=== PATIENT | female | born 1960 | race Caucasian/White ===

== ENCOUNTER → 2017-02-05 | Outpatient (CLI) | payer OTHER ==
[~2017-02-05] MED LIST: ADVIN25/60 INH; ALBUAER2 INH; ASPEC81 PO; FLUT0.15 NAE; LPR25 PO; LPT40 PO; PLV75 PO; ZNTT/150 PO
--- NOTE | 2017-02-08 17:36 | PULMONARY FUNCTION TEST ---
INTERPRETATION: The spirometry reveals moderate obstruction with no change in airflow with the use of albuterol.
== END | disposition home or self-care (01) ==
LOC: C.RC 12:26
PROVIDERS: ATTEND Nurse Practitioner Family
DX: J44.9 Chronic obstructive pulmonary disease, unspecified (principal)

== ENCOUNTER → 2017-02-16 | Outpatient (CLI) | payer OTHER ==
[~2017-02-16] MED LIST changes: +GADAVIST IV PRN
--- NOTE | 2017-02-16 09:18 | DIAGNOSTIC IMAGING REPORT ---
Brain MRI WITH AND WITHOUT CONTRAST HISTORY: Prior infarcts. Headaches. TECHNIQUE: Multiplanar multisequence MRI of the brain was performed both before and after the intravenous administration of contrast. COMPARISON STUDY: Brain MRI 01/16/2016. FINDINGS: No areas of restricted diffusion to suggest acute infarction. The midline structures are intact. Moderate mucosal thickening within the right T9 sinus and mild mucosal thickening within the remaining paranasal sinuses. The mastoid air cells are clear. The major vascular flow-voids at the skull base are maintained. Old right MCA territory infarct is again noted. There is surrounding T2 signal abnormality, unchanged. This favors scoliosis. Patchy white matter T2 hyperintensity also remains unchanged. This is nonspecific but favors microvascular ischemic change. There is no mass, hematoma, midline shift. The post infarct enhancement seen on the prior study has almost completely resolved in the interval. IMPRESSION: 1. No acute intracranial abnormality. 2. Old right MCA territory infarct. The enhancement associated with the infarct has almost completely resolved in the interval. Electronically signed by: Reynold Baron M.D. 02/16/2017 9:15 AM Dictated Date/Time: 02/16/2017 9:10 AM
== END | disposition home or self-care (01) ==
LOC: C.OPENMRI 07:40
PROVIDERS: ATTEND Psychiatry & Neurology Neurology
DX: Z86.73 Personal history of transient ischemic attack (TIA), and cerebral infarction without residual deficits (principal)

== ENCOUNTER → 2017-02-25 | Outpatient (CLI) | payer OTHER ==
[~2017-02-25] MED LIST changes: -GADAVIST IV PRN
--- NOTE | 2017-02-25 17:19 | MOTOR CONDUCTION ---
CLINICAL DIAGNOSIS: Cerebrovascular accident October 2015 now with memory loss, headaches, question partial seizure activity. EEG DIAGNOSIS: Essentially normal during wakefulness. DESCRIPTION OF TRACING: This EEG was done in laboratory and is of good technical quality with few or no muscle or movement artifacts. Simultaneous analysis of patient movement and behavior was obtained. Photic stimulation was performed. Hyperventilation was not. Drowsiness and light sleep are not clearly recorded. Under these conditions, there is evidence for normal appearing background rhythm in the alpha range of up to 10 Hz of maximum frequency and 30 microvolts of maximum amplitude. This is maximum in posterior head regions and bilaterally symmetrical. Polymorphic mid frequency theta activity is seen over all head regions without clear focal or regional predominance. Anterior head region maximum bilaterally symmetrical low voltage fast activity in the beta range is present. Photic stimulation provokes some modest driving response without a photomyogenic or photoparoxysmal component. At no time during the waking tracing is there evidence for potentially epileptogenic activity in the form of polyspike or spike wave bursts, focal sharp waves or focal spikes. INTERPRETATION: This EEG is essentially normal during wakefulness without evidence for focal or generalized encephalopathy and without evidence for potentially epileptogenic activity. MTDD
== END | disposition home or self-care (01) ==
LOC: C.NEUR 09:30
PROVIDERS: ATTEND Psychiatry & Neurology Neurology
DX: I69.311 Memory deficit following cerebral infarction (principal); R51 Headache

== ENCOUNTER → 2017-03-09 | Outpatient (CLI) | payer OTHER ==
--- NOTE | 2017-03-09 09:51 | DIAGNOSTIC IMAGING REPORT ---
CHEST 2 VIEWS ROUTINE CLINICAL HISTORY: Cough with bloody sputum. COMPARISON STUDY: Chest radiograph October 09, 2015. FINDINGS: Low volumes are normal. There is no consolidation. No pneumothorax or pleural effusion is identified. Cardiac size is normal. Mediastinal contours are normal. Minimal linear left lower lung opacity favors atelectasis or scarring. IMPRESSION: No acute cardiopulmonary findings. Electronically signed by: Eduardo Pollard M.D. 03/09/2017 9:50 AM Dictated Date/Time: 03/09/2017 9:50 AM
== END | disposition home or self-care (01) ==
LOC: C.RAD 09:35
PROVIDERS: ATTEND Nurse Practitioner Family
DX: R05 Cough (principal)

== ENCOUNTER → 2017-06-23 | Outpatient (CLI) | payer OTHER ==
--- NOTE | 2017-06-25 10:54 | PULMONARY FUNCTION TEST ---
Spirometry is suggestive for a mild obstructive pattern. Repeat study done following bronchodilators showed mild but not definitively significant improvement in function. FEV1 improved to 11%. Flow volume loops were consistent with spirometric findings. Lung volumes showed a normal total lung capacity. RV and FRC were mildly decreased. This would not correlate well with spirometric findings. Advise clinical correlation. Typically, spirometry is a better indicator of function. Diffusion capacity is 74% which is at the lower limits of normal.
== END | disposition home or self-care (01) ==
LOC: C.RC 10:38
PROVIDERS: ATTEND Internal Medicine Pulmonary Disease
DX: J44.9 Chronic obstructive pulmonary disease, unspecified (principal)

== ENCOUNTER → 2017-06-23 | Outpatient (CLI) | payer OTHER ==
--- NOTE | 2017-06-23 12:45 | DIAGNOSTIC IMAGING REPORT ---
TWO VIEW CHEST CLINICAL HISTORY: COPD. Cough. FINDINGS: PA and lateral chest radiographs are compared to study dated 03/09/2017. The cardiomediastinal silhouette is unremarkable. Calcified mediastinal nodes are suggested on the lateral view. Emphysema and chronic interstitial thickening are similar to previous. No airspace consolidation or pleural effusion is identified. There is no pneumothorax. The bony thorax appears intact. IMPRESSION: Emphysematous change with no acute cardiopulmonary abnormality. Electronically signed by: Jl Romero M.D. 06/23/2017 12:44 PM Dictated Date/Time: 06/23/2017 12:42 PM
== END | disposition home or self-care (01) ==
LOC: C.RAD 10:42
PROVIDERS: ATTEND Family Medicine
DX: J44.9 Chronic obstructive pulmonary disease, unspecified (principal)

== ENCOUNTER → 2017-07-14 | Outpatient (CLI) | payer OTHER ==
[2017-07-15 11:22] LABS: ALTERNARIA CLASS 0; ALTERNARIA IGE <0.10 KU/L; ASH (WHITE) CLASS 0; ASH (WHITE) IGE <0.10 KU/L; ASPERG FUMIG CLASS 0; ASPERG FUMIG IGE <0.10 KU/L; BIRCH CLASS 0; CAT DANDER CLASS 0; CLADOSPORIUM HER CLASS 0; CLADOSPORIUM HER IGE <0.10 KU/L; D. FARINAE CLASS 0; D. FARINAE IGE <0.10 KU/L; D. PTERONYSSINUS CLASS 0; D. PTERONYSSINUS IGE <0.10 KU/L; DOG DANDER CLASS 0; ELM CLASS 0; ENGLISH PLAN CLASS 0; ENGLISH PLAN IGE <0.10 KU/L; GIANT RAGWEED CLASS 0; GIANT RAGWEED IGE <0.10 KU/L; HOUSE DUST HOLLISTER-STIER C 0; HOUSEDUST HOLLIST-STIER IGE <0.10 KU/L; IMMUNOGLOBULIN E TC 24620E <2 KU/L (<115); JUNE (KENTUCKY BLUE) CLASS 0; JUNE IGE <0.10 KU/L; LAMB'S QUARTER CLASS 0; LAMB'S QUARTER IGE <0.10 KU/L; MAPLE (BOX ELDER) IGE <0.10 KU/L; MAPLE CLASS 0; OAK- WHITE CLASS 0; OAK- WHITE IGE <0.10 KU/L; ORCHARD GRASS CLASS 0; ORCHARD GRASS IGE <0.10 KU/L; PENIC NOTATUM CLASS 0; PENIC NOTATUM IGE <0.10 KU/L; RUSSIAN THISTLE CLASS 0; RUSSIAN THISTLE IGE <0.10 KU/L; SHORT RAGWEED CLASS 0; SHORT RAGWEED IGE <0.10 KU/L; TIMOTHY CLASS 0; TIMOTHY IGE <0.10 KU/L
== END | disposition home or self-care (01) ==
LOC: C.LAB 10:04
PROVIDERS: ATTEND Internal Medicine Pulmonary Disease
DX: J44.1 Chronic obstructive pulmonary disease with (acute) exacerbation (principal)

== ENCOUNTER → 2017-08-04 | Outpatient (CLI) | payer OTHER ==
--- NOTE | 2017-08-05 10:28 | POLYSOMNOGRAPH REPORT ---
CLINICAL DATA: A 57-year-old female with height of 62 inches and weight of 186 pounds, referred by Dr. Durham for evaluation of COPD. Spirometry pre- and post-bronchodilator, lung volumes, and DLCO were performed. FINDINGS: Pre-bronchodilator demonstrates mild obstructive airways disease. FVC was 92% of predicted. FEV1 was 69% of predicted. [id number] was 27% of predicted. There was slight improvement after inhaled bronchodilator. FVC improved 2% to 94% of predicted. FEV1 improved 8% to 74% of predicted. GJH36-05 improved 17% to 32% of predicted. Lung volumes did not show evidence of air trapping. Residual volume was 100% of predicted. ERV was reduced to 26% of predicted secondary to obesity. DLCO was normal at 82% of predicted. IMPRESSION: Mild obstructive airways disease with slight improvement after inhaled bronchodilator. No evidence of air trapping. Reduction in expiratory reserve volume due to obesity. Normal DLCO. This is consistent with the clinical impression of mild chronic obstructive pulmonary disease. MTDD
== END | disposition home or self-care (01) ==
LOC: C.RC 10:43
PROVIDERS: ATTEND Internal Medicine Pulmonary Disease
DX: J44.9 Chronic obstructive pulmonary disease, unspecified (principal)

== ENCOUNTER → 2017-10-20 | Outpatient (CLI) | payer OTHER ==
--- NOTE | 2017-10-20 16:23 | DIAGNOSTIC IMAGING REPORT ---
L HIP UNILATERAL 2 VIEWS HISTORY: 57 years-old Female PAIN IN LEFT HIP acute left sided hip pain COMPARISON: None available TECHNIQUE: 3 views of the left hip FINDINGS: No acute fracture, dislocation or significant degenerative changes of the left hip. Intervertebral disc space narrowing with facet arthropathy noted involving the lower lumbar spine. Probable phleboliths of the left hemipelvis. Soft tissues are within normal limits. Indeterminate 10 mm lucent lesion of the proximal diaphyseal left femur is imaged on the frog-leg view only. This appears to demonstrate a thin zone of transition. IMPRESSION: 1. No acute fracture, dislocation or significant degenerative changes. 2. 10 mm lucent lesion of the proximal diaphyseal left femur imaged on the frog leg view only is indeterminate. This could be further evaluated with dedicated left femur radiographs. The above report was generated using voice recognition software. It may contain grammatical, syntax or spelling errors. Electronically signed by: Wero Adkins M.D. 10/20/2017 4:22 PM Dictated Date/Time: 10/20/2017 4:17 PM
== END | disposition home or self-care (01) ==
LOC: C.RAD 15:41
PROVIDERS: ATTEND Family Medicine
DX: M25.552 Pain in left hip (principal); M89.9 Disorder of bone, unspecified

== ENCOUNTER → 2017-10-21 | Outpatient (CLI) | payer OTHER ==
[~2017-10-21] MED LIST changes: -ASPEC81 PO; +ASPI-320 PO; +RANI150T85 PO; -ZNTT/150 PO
--- NOTE | 2017-10-21 16:21 | DIAGNOSTIC IMAGING REPORT ---
L FEMUR 2 VIEWS ROUTINE HISTORY: 57 years-old Female ABNORMAL FINDINGS ON DIAGNOSTIC IMAGING OF LIMBS follow-up study to assess lucent lesion of the proximal left femur seen on comparison radiographs COMPARISON: Left hip radiographs 10/20/2017 TECHNIQUE: 2 views of the left femur FINDINGS: There is a 11 x 9 x 8 mm lucent lesion involving the proximal to mid diaphyseal left femur correlating with finding seen on comparison radiographs. This appears to demonstrate a thin zone of transition however the margins appear somewhat lobulated. No evidence of associated cortical destruction, definite endosteal scalloping or pathologic fracture. No soft tissue mass identified. No significant degenerative changes identified. IMPRESSION: Indeterminate 11 mm lucent lesion of the proximal to mid diaphyseal left femur without evidence of associated cortical destruction, endosteal scalloping, soft tissue mass or pathologic fracture. Based on the small size of this lesion, a CT or MRI would likely not be of significant diagnostic benefit. Three-month follow-up radiographs recommended to exclude progressive abnormality. The above report was generated using voice recognition software. It may contain grammatical, syntax or spelling errors. Electronically signed by: Wero Adkins M.D. 10/21/2017 4:20 PM Dictated Date/Time: 10/21/2017 3:39 PM
== END | disposition home or self-care (01) ==
LOC: C.RAD 15:06
PROVIDERS: ATTEND Nurse Practitioner Family
DX: R93.6 Abnormal findings on diagnostic imaging of limbs (principal); M89.9 Disorder of bone, unspecified

== ENCOUNTER → 2018-01-26 | Outpatient (CLI) | payer OTHER ==
[~2018-01-26] MED LIST changes: +ASPEC81 PO; -ASPI-320 PO
--- NOTE | 2018-01-26 14:27 | PULMONARY FUNCTION TEST ---
Spirometry is consistent with a moderate obstructive pattern. Flow volume loops were consistent with spirometric findings.
== END | disposition home or self-care (01) ==
LOC: C.RC 09:58
PROVIDERS: ATTEND Internal Medicine Pulmonary Disease
DX: J44.9 Chronic obstructive pulmonary disease, unspecified (principal)

== ENCOUNTER 2024-04-07 16:47 | Inpatient (IN) ==
--- NOTE | 2024-04-07 16:53 | ED Triage Note ---
Date of Service April 07, 2024 Provider in Triage Author: Keya Banuelos History of Present Illness This patient was briefly evaluated while in triage. An abbreviated physical exam was performed. This patient is a 64-year-old Female who presents to the ED for evaluation Hx of COPD, CVA coming from [facility] with SOB, productive cough, headache, weakness, increased heart rate for about a month after running out of albuterol Physical Exam GENERAL: NAD, tachy in 100s, sat 92% CARDIOVASCULAR: RRR RESPIRATORY: BS diminished throughout, scattered wheezes ABDOMEN: BS x 4. Nontender to palpation. Initial orders for labs and / or imaging were placed and patient was placed in the waiting area until a bed is available. Please see further documentation for the full ED course.
[2024-04-07] MEDS ORDERED: methylPREDNISolone 125 MG in SYRINGE 0 ML IV ONE (17:08)
[2024-04-07] MEDS: ALBUT/IPRATROP 3MG/0.5MG NEB 3 ML VIAL NEB STA ×3 (17:14→18:49)
[2024-04-07 17:16] LABS: HCO3 VBG 27 mmol/L; Oxygen Saturation VBG 96.2 %; PCO2 VBG 44 mmHg (38-50); PO2 VBG 79 mmHg
[2024-04-07 17:24] LABS: Basophils # (auto) 0.05 K/uL (0.00-0.20); Basophils % (auto) 0.4 %; Eosinophils # (auto) 0.44 K/uL (0.00-0.50); Eosinophils % (auto) 3.9 %; Hematocrit (blood only) 45.8 % (37.0-47.0); Hemoglobin 14.8 g/dl (12.0-16.0); Immature Granulocytes # (auto) 0.05 K/uL (0.01-0.20); Immature Granulocytes % (auto) 0.4 %; Lymphocytes # (auto) 2.76 K/uL (1.20-3.40); Lymphocytes % (auto) 24.5 %; Mean Corpuscular Hemoglobin 31.6 pg (25.0-34.0); Mean Corpuscular Hgb Conc 32.3 g/dL (32.0-36.0); Mean Corpuscular Volume 97.9 fL (80.0-100.0); Monocytes # (auto) 0.89 K/uL (0.11-0.59); Monocytes % (auto) 7.9 %; Neutrophils # (auto) 7.09 K/uL (1.40-6.50); Neutrophils % (auto) 62.9 %; Platelet Count 221 K/uL (130-400); RDW Coefficient of Variation 12.7 % (11.5-14.5); RDW Standard Deviation 45.3 fL (36.4-46.3); Red Blood Count 4.68 M/uL (4.20-5.40); White Blood Count 11.28 K/ul (4.8-10.8)
[2024-04-07 17:38] LABS: Albumin Globulin Ratio 1.3 (0.9-2); Albumin Level 4.1 gm/dl (3.4-5.0); BUN Creatinine Ratio 18.8 (10-20); Bilirubin,Total 0.5 mg/dl (0.2-1.0); Calcium 9.7 mg/dl (8.6-10.3); Creatinine Clr Calc Pharmacy 55.5 ml/min; Est GFR (African American) 90.3 ml/min; Est GFR (Non-African American) 77.9 ml/min; Globulin 3.2 gm/dl (2.5-4.0); Potassium 4.4 mmol/L (3.5-5.1); Total Protein 7.3 gm/dl (6.0-8.3)
[2024-04-07 17:44] LABS: Troponin I High Sensitivity 6.6 pg/ml (0-14)
[2024-04-07 17:51] LABS: Partial Thromboplastin Ratio 1.1; Partial Thromboplastin Time 30 Seconds (21-31); Prothrombin Time 10.5 Seconds (9.0-12.0)
--- NOTE | 2024-04-07 17:56 | XRay Report ---
SINGLE VIEW CHEST CLINICAL HISTORY: Dyspnea FINDINGS: An AP, portable, upright chest radiograph is compared to study dated 03/09/2017. Calcificatio ns are noted in the right chest wall. The cardiomediastinal silhouette is unremarkable. Dependent air space opacities likely represent atelectasis. No large pleural effusion or pneumothorax is seen. The skeletal structures are osteopenic. The bony thorax is grossly intact. IMPRESSION: Dependent airspace opacities likely represent atelectasis. Correlate clinically. ACT 112: Negative or not required by law. Electronically signed by: Jl Romero M.D. 04/07/2024 5:55 PM
[2024-04-07 18:01] LABS: Influenza A virus by PCR Negative (Neg); Influenza B virus by PCR Negative (Neg); RSV by PCR Negative (Neg); SARS CoV2 RNA(COVID-19) Ceph NEGATIVE (Negative)
[2024-04-07] MEDS: methylPREDNISolone 125 MG in SYRINGE 0 ML IV STA (18:10)
--- NOTE | 2024-04-07 18:37 | History & Physical Report ---
Date of Service April 07, 2024 Assessment & Plan (1) COPD exacerbation: (2) Acute hypoxic respiratory failure: (3) HTN (hypertension): (4) Hx of ischemic right MCA stroke: (5) Tobacco abuse: Plan This is a 64 year old F who has a significant PMH of COPD, HLD, Hypertriglycerid emia, Vit d def, hx of migraine, anxiety, depression, hx of R MCA CVA who presents to ED 2/2 worsening SOB and referral from [facility]. Please refer to Dr. Choi addendum for details regarding assessment and plan. DVT ppx: SQ Lovenox FULL CODE PCP: [facility] Dispo: admit to tele, pt is without insurance, she has gone without medications for quite some time, will need to develop a plan at discharge for pt to be able to obtain some of these, maci in regards to COPD Pt was seen and examined in collaboration with Dr. Choi, please see addendum A total of 40 min was spent coordinating, documenting, and providing care for this patient excluding time spent in the performance of separately billed services. This included personally viewing all current laboratories and imaging studies, medication reconciliation, outpatient chart review, and discussion with specialists. History of Present Illness Chief Complaint: Referred by [facility] due to SOB. Primary Care Provider: NO PCP [facility] This is a 64 year old F who has a significant PMH of COPD, HLD, Hypertriglyceridemia, Vit d def, hx of migraine, anxiety, depression, hx of R MCA CVA who presents to ED 2/2 worsening SOB and referral from [facility]. She does not have insurance. She recently ran out of her albuterol. A good friend/neighbor is at bedside who also encouraged her to come to ED. She complains of increasing SOB for, "months." Her sob has been getting worse. She feels tight in the chest. She has been using as needed albuterol. She also reports, "a sinus infection," for a long time. She was prescribed Augmentin in the past and this did not work. She still feels she is infected. She used flonase in the past that seemed to help. She has a productive cough, post nasal drip that is worse in the morning, She does still actively smoke. She declines a nicotine patch. She has not been taking any medications for some time. She has only been using albuterol and prn ibuprofen 600mg for, "aches and pains." She drinks a lot of water. She tends to run on the constipated side. In ED pt was hypoxic requiring supplmental oxygen. She received multiple nebulizer treatments and solumedrol IV 125mg. She feels much improved from when she first came in. Allergies Allergy/AdvReac Type Severity Reaction Status Date / Time latex Allergy Mild Verified 04/07/24 18:57 [id number] Reductase AdvReac Mild Verified 04/07/24 18:57 Inhibitor Home Medications Medication Instructions Recorded Confirmed Type No Known Home Medications 04/07/24 04/07/24 History Past Med/Surg History Problem List (Updated 04/07/24 @ 19:00 by Verito Brody PA-C) HTN (hypertension) Acute hypoxic respiratory failure COPD exacerbation COPD with hypoxia (Acute) Medical History (Updated 04/07/24 @ 19:00 by Verito Brody PA-C) Tobacco abuse Hx of ischemic right MCA stroke Dyslipidemia COPD (chronic obstructive pulmonary disease) Surgical History S/P endometrial ablation H/O tubal ligation History of dental surgery Family History Other Diabetes Hypertension Social History Smoking Status: Current every day smoker packs per day: 1; Hx Alcohol Use: Yes Alcohol Intake Frequency: Monthly or Less Hx Substance Use: No Preferred Language: Thai marital status: Single Current Living Situation: Alone Feels Safe at Home: Yes Review of Systems Review of Systems: All systems reviewed & are unremarkable except as noted in HPI & below Physical Exam Physical Exam: please refer to Dr. Choi addendum for physical exam findings. Results & Data Results & Data Vital Signs (Past 12 Hours) Vital Signs Temp Pulse Resp BP Pulse Ox O2 Del Method O2 Flow Rate 04/07/24 17:30 95 H 17 95 Nasal Cannula 2 04/07/24 17:21 90 12 96 04/07/24 17:19 97 H 04/07/24 17:08 Nasal Cannula 04/07/24 16:50 37.0 C 107 H 22 161/97 H 92 Room Air Diagnostic Findings Chest X-Ray 04/07/24 16:53 SINGLE VIEW CHEST CLINICAL HISTORY: Dyspnea FINDINGS: An AP, portable, upright chest radiograph is compared to study dated 03/09/2017. Calcifications are noted in the right chest wall. The cardiomediastinal silhouette is unremarkable. Dependent airspace opacities likely represent atelectasis. No large pleural effusion or pneumothorax is seen. The skeletal structures are osteopenic. The bony thorax is grossly intact. IMPRESSION: Dependent airspace opacities likely represent atelectasis. Correlate clinically. ACT 112: Negative or not required by law. Electronically signed by: Jl Romero M.D. 04/07/2024 5:55 PM Medications Administered Medication List Discontinued Medications Albuterol (Albut/Ipratrop 3mg/0.5mg Neb 3 Ml Vial) 3 ml NEB NOW STA; Protocol Stop: 04/07/24 17:08 Last Admin: 04/07/24 17:14 Dose: 3 ml Documented By: NADYA Albuterol (Albut/Ipratrop 3mg/0.5mg Neb 3 Ml Vial) 3 ml NEB NOW STA; Protocol Stop: 04/07/24 17:09 Last Admin: 04/07/24 17:14 Dose: 3 ml Documented By: NADYA Methylprednisolone 125 mg/ (Syringe) 2 mls @ 0.667 mls/min IV ONE STA Stop: 04/07/24 17:52 Last Admin: 04/07/24 18:10 Dose: 0.667 mls/min Documented By: NADYA ECG Additional Comments: I have independently reviewed and interpreted patient's admitting EKG which revealed: NSR, normal QTC, no st t wave changes Code Status & VTE Plan Code Status FULL CODE VTE Prophylaxis Plan VTE Prophylaxis will be ordered: Yes Supervising Physician Co-Signing Physician Notes I have seen and discussed the case with the collaborating advanced practitioner. I agree with the above H&P. I have reviewed and confirmed the patients medical history, the findings on physical examination, and the patients diagnosis and treatment plan with Mary Grace HERNANDEZ and agree with the information documented. In short, Ms. Jon is a 64 year old woman with history of tobacco use, prior right MCA stroke in 2015 with no residual deficits, COPD, HLD, allergic rhinitis who is noncompliant with medications 2/2 to loss of insurance admitted for acute hypoxic respiratory failure 2/2 COPD exacerbation. Patient states she noted worsening of her wheezing over a month ago, but was able to find an old albuterol inhaler to help her get by symptom mejia, however, her breathing and ability to perform day to day activities continued to decline. She reports increased sputum, wheezing and cough. Denies fevers, chills. Not clear of exacerbating factors such as weather, but reports previously feeling much improved when on flonase. Reports still smoking 1-2 ppd despite respiratory issues. Denies hospitalization for COPD exacerbation previously but has recieved steroids prior for breathing difficulties. Reports subjective improvement with IV steroids. GENERAL APPEARANCE: AxOx4, initially apprehensive, but communicative and pleasant no acute distress. HEENT: NC, AT. MMM. EOMI, clear conjunctiva, oropharynx clear. NECK: Supple without lymphadenopathy. No stiffness or restricted ROM. HEART: tachycardic no m/r/g LUNGS: scatter expiratory wheezing R>L, NC 2L , no accessory muscle use no conversational dyspnea ABDOMEN: Soft, nontender, nondistended with good bowel sounds heard. BACK: No CVAT, no obvious deformity. EXTREMITIES: Without cyanosis, clubbing or edema. NEUROLOGICAL: Grossly nonfocal. Alert and oriented, moving all 4 extremities. CN not formally tested but appear grossly intact Skin: Warm and dry without any rash. #Acute hypoxic respiratory failure 2/2 COPD #Acute COPD exacerbation previously on Breo and Spiriva, albuterol prn Continue CTX and Azithromycin 500mg x 3 days Start IV methylpred 40 budesonide and formoterol nebs BID duonebs qid flutter valve and mucinex Wean O2 as tolerated Determine access to inhalers (Lama/Laba/Ics) given lack of insurance coverage #Allergic rhinitis Start flonase and claritin #Hypertension Previously on verapamil Amlodipine 5mg started, on [facility] 4$ medication list #tobacco use 1-2 ppd, declines nicotine patch declines counseling #History of right MCA -reportedly 2014, unable to tolerate statins, Previously on plavix start asa daily, encourage continuation upon dc dvt lovenox Patient follows [facility], discuss with CM either coverage options or medication solutions (inhalers) upon d/c I spent a total of 35 minutes coordinating, documenting, and providing care for this patient excluding time spent in the performance of separately billed services. All of the aforementioned completed outside of collaborating with the assigned advanced practitioner for a full treatment plan. I have reviewed the advanced practitioner's documentation, and I agree with, and take responsibility for the plan of care
[2024-04-07] MEDS: cefTRIAXone SODIUM 2,000 MG/50 ML BAG IV ONE (18:49)
--- NOTE | 2024-04-07 18:54 | Emergency Department Note ---
History of Present Illness General Chief Complaint: Shortness of Breath/Dyspnea Stated Complaint: SOB, DOC REF Time Seen by Provider: 04/07/24 17:00 History of Present Illness Provider Complaint: shortness of breath Onset (ago): month(s) (1) Consistency/Duration: + progressively worsening Maximum Pain Intensity: 5 Relieved By: + nothing Exacerbated By: + exertion Known history of: COPD Associated symptoms: + cough, + wheezing, + sputum production and + chest congestion; no fever, no hemoptysis, no nausea/vomiting, no abdominal pain or no rash HPI Narrative: Noncompliant with medications Related Data Home oxygen amount: none Home Medications Medication Instructions Recorded Confirmed Type No Known Home Medications 04/07/24 04/07/24 History Allergies Allergy/AdvReac Type Severity Reaction Status Date / Time No Known Allergies Allergy Unverified 04/07/24 18:13 Past Med/Surg History Problem List (Updated 04/07/24 @ 18:54 by Eagle Myrick MD) COPD with hypoxia (Acute) Medical History Dyslipidemia COPD (chronic obstructive pulmonary disease) Surgical History S/P endometrial ablation H/O tubal ligation History of dental surgery Social History Smoking Status: Current every day smoker packs per day: 1; Hx Alcohol Use: Yes Alcohol Intake Frequency: Monthly or Less Hx Substance Use: No Preferred Language: Latvian marital status: Single Current Living Situation: Alone Feels Safe at Home: Yes Physical Exam 2 Vital Signs: Vital Signs - 24 hr 04/07/24 16:47 04/07/24 16:50 04/07/24 17:08 Temperature 37.0 C Temperature Source Temporal Artery Sc an Pulse Rate 107 H Pulse Rate from Sp O2 Sensor Respiratory Rate 22 Respiratory Effort / Characteristics Labored Non-Labored Sponta neous Respiratory Depth Deep Normal Respiratory Patter n Tachypnea Regular Blood Pressure 161/97 H Blood Pressure Rachel n 118 Blood Pressure Pos ition Sitting Pulse Oximetry 92 Oxygen Delivery Me thod Room Air Nasal Cannula Oxygen Flow Rate Sepsis Recent Feve r Within 48 Hours No Sepsis New/Unexpla ined Change in Men mona Status N/A Sepsis Action Take n by Nursing Physician Notified 04/07/24 17:19 04/07/24 17:21 04/07/24 17:30 Temperature Temperature Source Pulse Rate 97 H 90 95 H Pulse Rate from Sp O2 Sensor 92 H 93 H Respiratory Rate 12 17 Respiratory Effort / Characteristics Respiratory Depth Respiratory Patter n Blood Pressure Blood Pressure Rachel n Blood Pressure Pos ition Pulse Oximetry 96 95 Oxygen Delivery Me thod Nasal Cannula Oxygen Flow Rate 2 Sepsis Recent Feve r Within 48 Hours Sepsis New/Unexpla ined Change in Men mona Status Sepsis Action Take n by Nursing Physical Exam: Physical Exam GENERAL: Barrel chested. HENT: Exam performed. - Head: Normocephalic and atraumatic. EYES: Conjunctivae and EOM are normal. Right eye exhibits no discharge. Left eye exhibits no discharge. No scleral icterus. NECK: Normal range of motion. Neck supple. No JVD present. CV: Normal rate, regular rhythm, normal heart sounds and intact distal pulses. There is no peripheral edema. Palpable radial pulses bue. PULM/CHEST: Diminished breath sounds bilaterally. Expiratory wheezes bilaterally. ABD: The abdomen is soft. There is no tenderness. NEURO: Motor and sensation grossly intact. SKIN: Skin is warm and dry. He is not diaphoretic. PSYCH: normal mood and affect. Behavior is normal. Judgment and thought content normal. Course Course 1700: The patient was evaluated in room C6. A complete history and physical exam was performed Cardiac monitoring: An order was placed for continuous cardiac monitoring. The monitor shows a rate of 100 with sinus rhythm interpreted by me Patient found to be hypoxic on room air. Supplemental oxygen was applied via nasal cannula to improve the patient oxygen saturation. DuoNebs and steroids ordered for the patient. 1820: Vital signs stable on supplemental oxygen. When the patient attempted to get up and use the restroom she came dyspneic and her oxygen saturations started decreasing again. Better air movement status post 2 DuoNebs. Will repeat DuoNeb's and admit the patient for COPD exacerbation. Labs and imaging within normal limits. Administered Medications Discontinued Medications Albuterol (Albut/Ipratrop 3mg/0.5mg Neb 3 Ml Vial) 3 ml NEB NOW STA; Protocol Stop: 04/07/24 17:08 Last Admin: 04/07/24 17:14 Dose: 3 ml Documented By: NADYA Albuterol (Albut/Ipratrop 3mg/0.5mg Neb 3 Ml Vial) 3 ml NEB NOW STA; Protocol Stop: 04/07/24 17:09 Last Admin: 04/07/24 17:14 Dose: 3 ml Documented By: NADYA Methylprednisolone 125 mg/ (Syringe) 2 mls @ 0.667 mls/min IV ONE STA Stop: 04/07/24 17:52 Last Admin: 04/07/24 18:10 Dose: 0.667 mls/min Documented By: NADYA Medical Decision Making Laboratory Data Attestation: I reviewed the patient's lab results. 04/07/24 17:04 04/07/24 17:04 Lab Results 04/07/24 04/07/24 Range/Units 17:04 17:11 WBC 11.28 H (4.8-10.8) K/ul RBC 4.68 (4.20-5.40) M/uL Hgb 14.8 (12.0-16.0) g/dl Hct 45.8 (37.0-47.0) % MCV 97.9 (80.0-100.0) fL MCH 31.6 (25.0-34.0) pg MCHC 32.3 (32.0-36.0) g/dL RDW Std Deviation 45.3 (36.4-46.3) fL RDW Coeff of [place] 12.7 (11.5-14.5) % Plt Count 221 (130-400) K/uL MPV 9.0 L (9.4-12.4) fL Immature Gran % (Auto) 0.4 % Neut % (Auto) 62.9 % Lymph % (Auto) 24.5 % [place] % (Auto) 7.9 % Eos % (Auto) 3.9 % Baso % (Auto) 0.4 % Neut # (Auto) 7.09 H (1.40-6.50) K/uL Lymph # (Auto) 2.76 (1.20-3.40) K/uL [place] # (Auto) 0.89 H (0.11-0.59) K/uL Eos # (Auto) 0.44 (0.00-0.50) K/uL Baso # (Auto) 0.05 (0.00-0.20) K/uL Immature Gran # (Auto) 0.05 (0.01-0.20) K/uL PT 10.5 (9.0-12.0) Seconds INR 1.0 (0.9-1.1) APTT 30 (21-31) Seconds PTT Ratio 1.1 VBG pH 7.40 (7.36-7.41) VBG pCO2 44 (38-50) mmHg VBG pO2 79 mmHg VBG HCO3 27 mmol/L VBG O2 Saturation 96.2 % VBG Base Excess 2.0 mEq/L Sodium 138 (136-145) mmol/L Potassium 4.4 (3.5-5.1) mmol/L Chloride 104 (98-107) mmol/L Carbon Dioxide 28 (21-32) mmol/L Anion Gap 6 (3-11) BUN 15 (6-23) mg/dl Creatinine 0.80 (0.6-1.2) mg/dl Est Cr Clr Drug Dosing 55.5 ml/min Est GFR ( Amer) 90.3 ml/min Est GFR (Non-Af Amer) 77.9 ml/min BUN/Creatinine Ratio 18.8 (10-20) Glucose 100 H (70-99(Fasting)) mg/dl Calcium 9.7 (8.6-10.3) mg/dl Total Bilirubin 0.5 (0.2-1.0) mg/dl AST 15 (13-39) U/L ALT 12 (7-52) U/L Alkaline Phosphatase 105 H (34-104) U/L Troponin I High Sens 6.6 (0-14) pg/ml Total Protein 7.3 (6.0-8.3) gm/dl Albumin 4.1 (3.4-5.0) gm/dl Globulin 3.2 (2.5-4.0) gm/dl Albumin/Globulin Ratio 1.3 (0.9-2) SARS-CoV-2 (PCR) NEGATIVE (Negative) Influenza Type A (PCR) Negative (Neg) Influenza Type B (PCR) Negative (Neg) RSV (RT-PCR) Negative (Neg) Imaging Data Attestation: I personally reviewed and interpreted this imaging study as follows: My Impression: Chest x-ray negative. Airway clear. No pneumothorax. No consolidation. No cardiomegaly or cephalization.. No free air under the diaphragm. No fractures of the skeletal structures. Atelectasis right middle lobe area. Radiologist's Impression: Chest X-Ray 04/07/24 16:53 SINGLE VIEW CHEST CLINICAL HISTORY: Dyspnea FINDINGS: An AP, portable, upright chest radiograph is compared to study dated 03/09/2017. Calcifications are noted in the right chest wall. The cardiomediastinal silhouette is unremarkable. Dependent airspace opacities likely represent atelectasis. No large pleural effusion or pneumothorax is seen. The skeletal structures are osteopenic. The bony thorax is grossly intact. IMPRESSION: Dependent airspace opacities likely represent atelectasis. Correlate clinically. ACT 112: Negative or not required by law. Electronically signed by: Jl Romero M.D. 04/07/2024 5:55 PM ECG Data Attestation: I personally reviewed and interpreted this ECG as follows: Interpretation: Sinus rhythm with a rate of 95. HI 138 QRS [address] elevation or ST depression. [facility] Narrative 1700: The patient was evaluated in room C6. A complete history and physical exam was performed Cardiac monitoring: An order was placed for continuous cardiac monitoring. The monitor shows a rate of 100 with sinus rhythm interpreted by me Patient found to be hypoxic on room air. Supplemental oxygen was applied via nasal cannula to improve the patient oxygen saturation. DuoNebs and steroids ordered for the patient. 1820: Vital signs stable on supplemental oxygen. When the patient attempted to get up and use the restroom she came dyspneic and her oxygen saturations started decreasing again. Better air movement status post 2 DuoNebs. Will repeat DuoNeb's and admit the patient for COPD exacerbation. Labs and imaging within normal limits. Impression & Plan COPD with hypoxia Critical Care Time Critical Care Time: Yes Total Critical Care Time: 46 I have personally spent greater than 46 minutes of critical care time in the direct management of this patient. This includes bedside care, interpretation of diagnostic studies, and testing, discussion with consultants, patient, and family members, and other required patient management activities. This 46 minutes is in excess of all separately billable procedures. Discharge Plan Visit Data Chief Complaint: Shortness of Breath/Dyspnea Stated Complaint: SOB, DOC REF ED Provider: Eagle Myrick Discharge Problem: COPD with hypoxia Patient Disposition: Admitted As Inpatient Forms Stand Alone Forms: My [facility] Prescriptions Prescriptions: No Action No Known Home Medications Referrals Referrals: PCP,NO [Primary Care Provider] -
--- NOTE | 2024-04-07 19:09 | Hospitalist Progress Note ---
Date of Service April 07, 2024 Supervising Physician Co-Signing Physician Notes I have seen and discussed the case with the collaborating advanced practitioner. I agree with the above H&P. I have reviewed and confirmed the patients medical history, the findings on physical examination, and the patients diagnosis and treatment plan with Mary Grace HERNANDEZ and agree with the information documented. In short, Ms. Jon is a 64 year old woman with history of tobacco use, prior right MCA stroke in 2015 with no residual deficits, COPD, HLD, allergic rhinitis who is noncompliant with medications 2/2 to loss of insurance admitted for acute hypoxic respiratory failure 2/2 COPD exacerbation. Patient states she noted worsening of her wheezing over a month ago, but was able to find an old albuterol inhaler to help her get by symptom mejia, however, her breathing and ability to perform day to day activities continued to decline. She reports increased sputum, wheezing and cough. Denies fevers, chills. Not clear of exacerbating factors such as weather, but reports previously feeling much improved when on flonase. Reports still smoking 1-2 ppd despite respiratory issues. Denies hospitalization for COPD exacerbation previously but has recieved steroids prior for breathing difficulties. Reports subjective improvement with IV steroids. GENERAL APPEARANCE: AxOx4, initially apprehensive, but communicative and pleasant no acute distress. HEENT: NC, AT. MMM. EOMI, clear conjunctiva, oropharynx clear. NECK: Supple without lymphadenopathy. No stiffness or restricted ROM. HEART: tachycardic no m/r/g LUNGS: scatter expiratory wheezing R>L, NC 2L , no accessory muscle use no conversational dyspnea ABDOMEN: Soft, nontender, nondistended with good bowel sounds heard. BACK: No CVAT, no obvious deformity. EXTREMITIES: Without cyanosis, clubbing or edema. NEUROLOGICAL: Grossly nonfocal. Alert and oriented, moving all 4 extremities. CN not formally tested but appear grossly intact Skin: Warm and dry without any rash. #Acute hypoxic respiratory failure 2/2 COPD #Acute COPD exacerbation previously on Breo and Spiriva, albuterol prn Continue CTX and Azithromycin 500mg x 3 days Start IV methylpred 40 budesonide and formoterol nebs BID duonebs qid flutter valve and mucinex Wean O2 as tolerated Determine access to inhalers (Lama/Laba/Ics) given lack of insurance coverage #Allergic rhinitis Start flonase and claritin #Hypertension Previously on verapamil Amlodipine 5mg started, on [facility] 4$ medication list #tobacco use 1-2 ppd, declines nicotine patch declines counseling #History of right MCA -reportedly 2014, unable to tolerate statins, Previously on plavix start asa daily, encourage continuation upon dc dvt lovenox Patient follows [facility], discuss with CM either coverage options or medication solutions (inhalers) upon d/c I spent a total of 35 minutes coordinating, documenting, and providing care for this patient excluding time spent in the performance of separately billed services. All of the aforementioned completed outside of collaborating with the assigned advanced practitioner for a full treatment plan. I have reviewed the advanced practitioner's documentation, and I agree with, and take responsibility for the plan of care Results & Data Results & Data Vital Signs (Past 12 Hours) Vital Signs Temp Pulse Resp BP Pulse Ox O2 Del Method O2 Flow Rate 04/07/24 17:30 95 H 17 95 Nasal Cannula 2 04/07/24 17:21 90 12 96 04/07/24 17:19 97 H 04/07/24 17:08 Nasal Cannula 04/07/24 16:50 37.0 C 107 H 22 161/97 H 92 Room Air
[2024-04-07 19:41] LABS: Appearance Urine Clear (Clear); Bilirubin Urine Negative (Negative); Blood Urine Negative (Negative); Color Urine Yellow; Glucose Urine UA Negative (Negative); Ketones Urine Negative (Negative); Leukocyte Esterase Urine Negative (Negative); Nitrite Urine Negative (Negative); Protein Urine Negative (Negative); Specific Gravity Urine 1.007 (1.000-1.030); Urobilinogen Urine Negative (Negative)
[2024-04-07] MEDS ORDERED: ALUMINUM/MAGNESIUM SUSP 30 ML UDC PO PRN (20:12)
[2024-04-07] MEDS ORDERED: ACETAMINOPHEN 325 MG TAB PO PRN (20:12)
[2024-04-07] MEDS ORDERED: ONDANSETRON INJ 2 MG/ML 2 ML VIAL IV PRN (20:12)
[2024-04-07] MEDS ORDERED: MAGNESIUM HYDROXIDE SUSP 30 ML UDC PO PRN (20:12)
[2024-04-07] MEDS ORDERED: POLYETHYLENE (MIRALAX) 17 GM PACK PO PRN (20:12)
[2024-04-07] MEDS: FORMOTEROL 20 MCG/2 ML VIAL NEB SCH (20:57)
[2024-04-07] MEDS: BUDESONIDE 0.5 MG/2 ML VIAL (PULMICORT) NEB SCH (20:57)
[2024-04-07] MEDS: ALBUT/IPRATROP 3MG/0.5MG NEB 3 ML VIAL NEB SCH (20:57)
[2024-04-07] MEDS: amLODIPine BESYLATE 5 MG TAB PO SCH (21:40)
[2024-04-07] MEDS: ENOXAPARIN INJ 40 MG/0.4 ML SYR SQ SCH (21:40)
[2024-04-07] MEDS: AZITHROMYCIN 500 MG in DEXTROSE 5% 250 ML IV ONE (21:41)
[2024-04-07] MEDS: guaiFENesin 600 MG TABCR PO SCH (21:41)
[2024-04-07] MEDS: LORATADINE 10 MG TAB PO SCH (21:41)
[2024-04-07] MEDS: IBUPROFEN 200 MG TAB PO STA (22:11)
[2024-04-08 07:39] LABS: Hematocrit (blood only) 45.2 % (37.0-47.0); Hemoglobin 14.7 g/dl (12.0-16.0); Mean Corpuscular Hemoglobin 31.5 pg (25.0-34.0); Mean Corpuscular Hgb Conc 32.5 g/dL (32.0-36.0); Mean Corpuscular Volume 96.8 fL (80.0-100.0); Platelet Count 218 K/uL (130-400); RDW Coefficient of Variation 12.6 % (11.5-14.5); RDW Standard Deviation 44.2 fL (36.4-46.3); Red Blood Count 4.67 M/uL (4.20-5.40); White Blood Count 13.38 K/ul (4.8-10.8)
[2024-04-08 08:01] LABS: Albumin Globulin Ratio 1.2 (0.9-2); Albumin Level 3.9 gm/dl (3.4-5.0); BUN Creatinine Ratio 21.4 (10-20); Bilirubin,Total 0.3 mg/dl (0.2-1.0); Calcium 9.6 mg/dl (8.6-10.3); Creatinine Clr Calc Pharmacy 61.3 ml/min; Est GFR (African American) 106.1 ml/min; Est GFR (Non-African American) 91.6 ml/min; Globulin 3.3 gm/dl (2.5-4.0); Magnesium 2.2 mg/dl (1.7-2.4); Potassium 4.7 mmol/L (3.5-5.1); Total Protein 7.2 gm/dl (6.0-8.3)
[2024-04-08 08:13] LABS: Basophils # (auto) 0.02 K/uL (0.00-0.20); Basophils % (auto) 0.1 %; Eosinophils # (auto) 0.01 K/uL (0.00-0.50); Eosinophils % (auto) 0.1 %; Immature Granulocytes # (auto) 0.07 K/uL (0.01-0.20); Immature Granulocytes % (auto) 0.5 %; Lymphocytes # (auto) 0.89 K/uL (1.20-3.40); Lymphocytes % (auto) 6.7 %; Monocytes # (auto) 0.19 K/uL (0.11-0.59); Monocytes % (auto) 1.4 %; Neutrophils % (auto) 91.2 %
[2024-04-08] MEDS: methylPREDNISolone 40 MG in SYRINGE 0 ML IV ONE (09:23)
[2024-04-08] MEDS: ASPIRIN 81 MG ECTAB PO SCH (09:23)
[2024-04-08] MEDS: FLUTICASONE PROPIONATE NA SPR 16 GM BTL SCH (09:24)
[2024-04-08] MEDS: AZITHROMYCIN 250 MG TAB PO SCH (09:24)
--- NOTE | 2024-04-08 13:33 | Discharge Summary ---
Date of Service April 08, 2024 Admission HPI Per Admitting Provider This is a 64 year old F who has a significant PMH of COPD, HLD, Hypertriglyceridemia, Vit d def, hx of migraine, anxiety, depression, hx of R MCA CVA who presents to ED 2/2 worsening SOB and referral from [facility]. She does not have insurance. She recently ran out of her albuterol. A good friend/neighbor is at bedside who also encouraged her to come to ED. She complains of increasing SOB for, "months." Her sob has been getting worse. She feels tight in the chest. She has been using as needed albuterol. She also reports, "a sinus infection," for a long time. She was prescribed Augmentin in the past and this did not work. She still feels she is infected. She used flonase in the past that seemed to help. She has a productive cough, post nasal drip that is worse in the morning, She does still actively smoke. She declines a nicotine patch. She has not been taking any medications for some time. She has only been using albuterol and prn ibuprofen 600mg for, "aches and pains." She drinks a lot of water. She tends to run on the constipated side. In ED pt was hypoxic requiring supplmental oxygen. She received multiple nebulizer treatments and solumedrol IV 125mg. She feels much improved from when she first came in. Admission Exam Per Admitting Provider GENERAL APPEARANCE: AxOx4, initially apprehensive, but communicative and pleasant no acute distress. HEENT: NC, AT. MMM. EOMI, clear conjunctiva, oropharynx clear. NECK: Supple without lymphadenopathy. No stiffness or restricted ROM. HEART: tachycardic no m/r/g LUNGS: scatter expiratory wheezing R>L, NC 2L , no accessory muscle use no conversational dyspnea ABDOMEN: Soft, nontender, nondistended with good bowel sounds heard. BACK: No CVAT, no obvious deformity. EXTREMITIES: Without cyanosis, clubbing or edema. NEUROLOGICAL: Grossly nonfocal. Alert and oriented, moving all 4 extremities. CN not formally tested but appear grossly intact Skin: Warm and dry without any rash. Principal Diagnosis COPD exacerbation Hypertension Discharge Exam Constitutional: WD/WN, vitals as above, NAD, sitting up in bed, pleasant, conversing easily Respiratory: Bilateral clear breath sounds; no additional sound Cardiovascular: RRR, no murmur, no edema Vessels: no JVD or carotid bruit Chest: normal inspection of chest Abdomen: normal bowel sounds, soft, nontender, no hepatosplenomegaly Musculoskeletal: no cyanosis or clubbing, extremities motor strength 5/5 Skin: no rashes, warm and dry normal turgor Neurologic: PERRL, EOMI, accommodation nl, no face palsy, no dysarthria CN's II- XI intact bilaterally and moves all extremities Psychiatric: A+Ox3, euthymic affect Discharge Data Allergies Allergy/AdvReac Type Severity Reaction Status Date / Time latex Allergy Mild Verified 04/07/24 18:57 [id number] Reductase AdvReac Mild Verified 04/07/24 18:57 Inhibitor Consultations 04/07/24 18:21 ED Decision to Admit Stat Hospital Course (1) COPD exacerbation: (2) Acute hypoxic respiratory failure: (3) HTN (hypertension): (4) Hx of ischemic right MCA stroke: (5) Tobacco abuse: Plan This is a 64 year old F who has a significant PMH of COPD, HLD, Hypertriglyceridemia, Vit d def, hx of migraine, anxiety, depression, hx of R MCA CVA who presents to ED 2/2 worsening SOB and referral from [facility]. Patient was found to have COPD exacerbation with bilateral wheeze on lung examination on presentation. She was admitted to medical floor; started on antibiotics, [id number] DuoNeb, inhaled glucocorticoid, and supplemental oxygen Over the course of the hospitalization; patient showed significant improvement. She did not have any wheeze at the time of the discharge. Two-step oxygen evaluation was done; she did not need supplemental oxygen. She was prescribed albuterol inhaler, Advair, steroid, antibiotics for COPD exacerbation. She was also prescribed amlodipine for hypertension and was recommended to be started on aspirin given history of CVA. Patient was also recommended for smoking cessation. Patient to follow-up with PCP after discharge Please note the above document was generated using voice recognition software. It may contain grammatical, syntax or spelling errors. Any formal questions or concerns about the content, text or information contained within the body of this dictation should be directly addressed to the provider for clarification Total Time Total Time Spent Total Time Spent (In Minutes): 34 Total Time Includes: Examination of the Patient, Discharge Planning, Medication Reconciliation, Communication With Other Providers and Other Discharge Plan Discharge Items Patient Disposition: Home - Self-Care Reason For Visit: COPD EXAC, HYPOXIA Discharge Diagnosis: COPD exacerbation Activity: Resume your previous activity Non-emergency contact: Primary Care Provider Call non-emergency contact if: you have any medication questions and your symptoms worsen Follow-up/Referrals: [facility],Medicine [Primary Care Provider] - Diet: Regular Addtl Attending Provider Instructions: You were admitted to the hospital due to COPD exacerbation. You are prescribed following medication: 1) Antibiotics with Levaquin 750 mg once a day for 5 days 2) Prednisone 40 mg once a day for 5 days 3) Advair inhaler twice a day. This is a long-term medication for COPD; please use it twice a day from now on 4) Albuterol inhaler as needed 5) Loratadine 10 mg once a day You are also prescribed amlodipine 5 mg once a day for high blood pressure. Measure blood pressure at home Your presents with prescribed aspirin given your history of CVA. Please take it once a day Pending Studies at Discharge: No Stand-Alone Forms: My [facility], Smoking Cessation Medications and DC Order Prescriptions: New amlodipine [Norvasc] 5 mg Tablet 5 mg PO QAM Qty: 30 0RF aspirin 81 mg Tablet,Delayed Release (Dr/Ec) 81 mg PO QAM Qty: 30 0RF fluticasone propionate 50 mcg/actuation [place],Suspension 2 spray NA DAILY Qty: 16 0RF loratadine [Wal-itin] 10 mg Tablet 10 mg PO QAM Qty: 30 0RF guaifenesin [Mucinex] 600 mg Tablet Extended Release 12hr 1,200 mg PO Q12 5 Days Qty: 20 0RF prednisone 20 mg tablet 40 mg PO DAILY 5 Days Qty: 10 0RF albuterol sulfate 90 mcg/actuation HFA aerosol inhaler 1 inh inhalation Q6H PRN (Reason: shortness of breath or wheezing) Qty: 6.7 0RF fluticasone propion-salmeterol [Advair Diskus] 250-50 mcg/dose blister with device 1 inh inhalation BID Qty: 60 0RF levofloxacin 750 mg tablet 750 mg PO DAILY 5 Days Qty: 5 0RF Discharge Orders: Discharge Order (Routine); Ordered 06/07/24 Ordered By: Mitchell Murphy Admission Data Admit Date/Time: 04/07/24 18:26 Attending Provider: Mitchell Murphy Admit Provider: Silvia Choi [facility] Other Providers: Silvia Choi Other Interventions: Discharge Summary Assessment (RN) Last Done: 04/08/24 11:12
[2024-04-08] MEDS ORDERED: cefTRIAXone SODIUM 2,000 MG/50 ML BAG IV SCH (18:30)
--- NOTE | 2024-04-08 22:58 | Electrocardiogram Report ---
Test Reason : Blood Pressure : / mmHG Vent. Rate : 095 BPM Atrial Rate : 095 BPM P-R Int : 138 ms QRS Dur : 074 ms QT Int : 338 ms P-R-T Axes : 083 085 058 degrees QTc Int : 424 ms Normal sinus rhythm Cannot rule out Anterior infarct , age undetermined Abnormal ECG When compared with ECG of 11-OCT-2015 06:35, Vent. rate has increased BY 31 BPM Confirmed by Atul Mckeon ([id number]) on 04/08/2024 10:58:06 PM Referred By: REFERRED SELF Confirmed By:Atul Mckeon
== END 2024-04-08 12:00 | disposition home or self-care (01) | DRG 190 ==
LOC: ED 16:47 → 2W 18:26 → SUATTDRO 18:26 → 2W 20:03

== ENCOUNTER 2025-03-01 06:34 | Inpatient (IN) ==
--- NOTE | 2025-02-16 12:11 | Anesthesiology Consultation ---
Date of Service February 16, 2025 Assessment & Plan (1) Encounter for pre-operative examination: - Per nursing services manager on 02/16/25: No known infectious disease contacts, current infectious disease symptoms in past 10 days or COVID positive test result in the past 30 days. Chart Review Chart Review: Acceptable Risk for Surgery and Patient NOT seen in Pre Admission Testing History Surgery Operation Date: 03/01/25 08:00 Proposed Procedures p Left Femoral to Tibioperoneal Artery In-Situ Bypass - Russel Arias MD Height/Weight Height: 5 ft 1 in Weight: 75.296 kg Allergies Allergy/AdvReac Type Severity Reaction Status Date / Time escitalopram Allergy Severe Lethargy Verified 02/16/25 11:20 latex Allergy Mild localized Verified 02/16/25 11:20 redness aspirin AdvReac Intermediate Abdominal Verified 02/16/25 11:20 Pain Gl[place]-KZX-[id number] Reductase AdvReac Mild Muscle Pain Verified 02/16/25 11:21 Inhibitor Medications Home Medications Medication Instructions Recorded Confirmed Last Taken albuterol sulfate 90 mcg/actuation 1 inh inhalation Q6H PRN shortness 04/08/24 02/16/25 02/09/25 23:00 aerosol inhaler of breath or wheezing #6.7 grams fluticasone 500 mcg-salmeterol 50 1 inh inhalation BID #60 ea 11/14/24 02/16/25 02/09/25 22:00 mcg/dose blistr powdr for inhalation (Advair Diskus) amlodipine 5 mg tablet (Norvasc) 5 mg PO HS 02/04/25 02/16/25 02/09/25 21:00 ibuprofen 200 mg tablet 200 mg PO Q6H PRN Pain 02/04/25 02/16/25 02/09/25 23:00 tiotropium bromide 18 mcg capsule 1 cap inhalation QAM 02/04/25 02/16/25 02/09/25 23:00 with inhalation device Oxygen Home #1 ea 02/16/25 Unknown fluticasone propionate 50 2 spray NA DAILY PRN Congestion 02/16/25 02/16/25 Unknown mcg/actuation nasal spray,suspension loratadine 10 mg tablet (Wal-itin) 10 mg PO QAM PRN Allergy Symptoms 02/16/25 02/16/25 Unknown Past Medical History Medical History (Updated 02/16/25 @ 12:10 by Deedee Del Valle PA-C) AAA (abdominal aortic aneurysm) 3 cm infrarenal Claustrophobia severe COPD (chronic obstructive pulmonary disease) uses res inh "off and on" Dyslipidemia Factor 5 Leiden mutation, heterozygous BRANT (generalized anxiety disorder) cannot tolerate meds for this, manages on own History of COVID-20 May 2022 HTN (hypertension) Hx of ischemic right MCA stroke Oct 2015 > does have slight reading difficulty since then, possibly related to Factor 5 dx shortly after On home oxygen therapy 1 LPM at HS Pulmonary nodule Tobacco abuse Past Family History Family History Other Diabetes Hypertension Past Surgical History Surgical History H/O tubal ligation History of colonoscopy History of dental surgery S/P endometrial ablation Social History Smoking Status: Current every day smoker Smoking cigarettes per day: 1-1.5 ppd > advised npo Do You Dip or Chew Tobacco: No Hx Alcohol Use: Yes Alcohol type: hard liquor alcohol intake frequency: a few times a week Hx Substance Use: No substance use type: does not use Lab Results Anesthesia Preop Results Results Anesthesia Widget: WBC 8.66 K/ul (4.8-10.8) 02/04/25 Hgb 15.7 g/dl (12.0-16.0) 02/04/25 Hct 46.0 % (37.0-47.0) 02/04/25 Plt 162 K/uL (130-400) 02/04/25 Na 141 mmol/L (136-145) 02/04/25 K 4.1 mmol/L (3.5-5.1) 02/04/25 Cl 107 mmol/L (98-107) 02/04/25 CO2 28 mmol/L (21-32) 02/04/25 BUN 23 mg/dl (6-23) 02/10/25 Creat 0.87 mg/dl (0.6-1.2) 02/10/25 Glucose Level 96 mg/dl (70-99(Fasting)) 02/04/25 PT 10.5 Seconds (9.0-12.0) 02/04/25 PTT 28 Seconds (21-31) 02/04/25 INR 1.0 (0.9-1.1) 02/04/25 Urine Appearance Clear 12/26/24 Testing Electrocardiogram Date: 04/07/24 NSR, rate 95 bpm Cannot rule out anterior infarct, age undetermined Other Testing Abdomen pelvis CT 10/24/24 1. No urinary calculi, hydronephrosis or upper tract urothelial lesions. 2. Mild bladder wall thickening, a nonspecific finding. No discrete bladder lesion although bladder incompletely opacified. 3. 3 cm infrarenal abdominal aortic aneurysm. 4. No acute process within the abdomen or pelvis. 5. Colonic diverticulosis. No evidence for acute diverticulitis. Chest CT 10/20/24 Mild centrilobular emphysema changes seen in both lungs. No focal areas of consolidation. No pulmonary nodules are seen. Calcified right axillary lymph node seen.
--- NOTE | 2025-02-28 15:07 | History & Physical Report ---
Date of Service February 28, 2025 History of Present Illness Primary Care Provider: Vivian Suarez DO Date of Service February 10, 2025 History of Present Illness Primary Care Provider: Vivian Suraez DO Name: JOSE MAYNARD Patient Number: [id number] : 1960 Date of Service: 02/06/2025 Chief Complaint: _Follow-up for PAD HPI: _Ms. Maynard is an elderly female presents to Dr. Arias's vascular surgery clinic today for an office visit to discuss her recent ultrasound findings. Patient was initially seen by Dr. Arias few weeks ago for abdominal aortic aneurysm, and was noted to have symptoms concerning for claudication and rest pain of her left lower extremity. She was sent for an ultrasound of her leg, which demonstrates severe peripheral arterial disease with a left leg BREANNA of 0.2. Upon questioning, patient does confirm that she is only able to walk 10-15 steps before stopping due to pain in her left calf and numbness in her left foot. She feels sometimes that she is almost dragging her left foot, and limps when she is ambulating. She has pain in her left lower leg and foot when she is laying in bed at night, which is improved when she sits with her legs over the side of the bed or stands up on her legs to walk around. She also states to having some low back problems, and occasionally gets a sharp pain in her left lower back and buttock which sometimes radiates down her leg, but this is different than what she experiences in her lower legs and foot typically. She denies any nonhealing wounds or ulcerations of her feet. When she is at the grocery store, she does have a cart and tries to lean on it somewhat, but this does not improve her left calf or foot problems. Her bilateral lower extremity arterial ultrasound performed prior to today's appointment demonstrates severe peripheral arterial disease, worse in the left leg than the right. Her right leg BREANNA 0.53, her left is 0.28. Emotional Assessment (PHQ-2) (Data Documented on:02/02/2025 08:55) [place] down or depressed over last 2 weeks? 0 - Not at All Little interest in doing things? 0 - Not at All PHQ-2 Score: 0 - Emotional health assessment NEGATIVE Current Home Meds: (Last Updated 04/03 08:54) albuterol (Albuterol (Eqv-ProAir HFA) 90 mcg/inh inhalation aerosol) 90 mcg inhaled q6h PRN: as needed for shortness of breath or wheezing amLODIPine (amLODIPine 5 mg oral tablet) 5 mg PO Daily fluticasone-salmeterol (Advair Diskus 500 mcg-50 mcg) 1 puff PO bid guaifenesin-pseudoephedrine (Mucinex D Max Strength 120 mg-1200 mg oral tablet, extended release) 1 tab PO q12h PRN: congestion ibuprofen 800 mg PO Daily loratadine (Claritin 10 mg oral tablet) 10 mg PO Daily PRN: as needed for allergy symptoms tiotropium (Spiriva 18 mcg inhalation capsule) 18 mcg inhaled Daily Allergies and Sensitivities: escitalopram(Somnolence) Latex(rash) statins(muscle spasms, malaise) aspirin(upset stomach and bloody stools) Past Medical History: Problems: Polyp of colon Hematuria Erythrocytosis Factor V deficiency Requires oxygen therapy Statin intolerance Infrarenal abdominal aortic aneurysm, without rupture HTN, goal below 130/80 HLD (hyperlipidemia) History of CVA (cerebrovascular accident) BRANT (generalized anxiety disorder) Depression COPD with emphysema (atherosclerosis) Body mass index [BMI] 31.0-31.9, adult GERD without esophagitis Vitamin D deficiency Tobacco user Pulmonary nodule OBJECTIVE Vitals: Last Updated 02/06/25 13:59 Date Temp BP Location Pulse RR SpO2 Pain 02/06/25 0 02/06/25 138/78 Right Arm 88 88 02/02/25 10 Vital Signs are the last 3 documented. No Orthostatic Data Available Height and Weight: Last Updated 12/22/24 09:04 Date BMI Wt(kg) Wt(lb) Method Ht(cm) (ft-in) Method 12/22/24 80.9 178 Standing Scale 11/09/24 31.89 79 174 Standing Scale 157.4 5-2 Patient stated 09/22/24 31.69 78.5 173 Standing Scale 157.4 5-2 Standing Heights and Weights are the last 3 documented. Physical Exam Constitutional: In general patient is a healthy-appearing well-nourished well- developed early female no distress. She is alert and oriented with any focal deficits. Her bilateral lower extremities demonstrate nonpalpable distal pulses, but she does have brisk capillary fill on the right and 4 cm on the left. Her left foot is ruborous. Her lungs are clear. Her heart has a RRR. Her abdomen is benign. ASSESSMENT: _ PLAN: _ 1 ) _severe peripheral arterial disease with rest pain left leg Patient does have severe peripheral arterial disease in her bilateral lower extremities, worse in the left leg than the right. She does have symptoms consistent with short distance claudication and rest pain of the left foot. Due to her symptoms and the severity of her ultrasound findings, we recommend that she undergo a left lower extremity arteriogram with possible intervention later this week. The procedure risks benefits and alternatives were discussed with the patient by myself at Dr. Arias's request. Patient expressed understanding and agreement to proceed. This will occur within the next week or so. She is vies call any questions or concerns. Thank you for letting us participate in the care of this patient. I have personally spent_36__ minutes performing mndh-dv-ihmj and xzv-uuqs-tl-face activities on this date of service.Time does not include separately reported services. Activities Include: _x_ review of the medical record _x_ obtaining a history x__ physical exam/evaluation __ review labs _x_ review radiology reports _x_ counseling/educating patient/family/caregiver __ discussion/referral to other healthcare professional x__ documenting care in the medical record __ independent interpretation of results x__ communication of results to patient/family/caregiver _x_ coordination of care Signature Line Electronic Signature on File CC: Vivian Suarez, DO [address] [place] [place] [address] Electronically Reviewed/Signed by: Ada Jamil PA-C Author Signature D t/Tm:02/06/2025 02:44 PM [facility] [address] [facility] [place] [address] LM Result Type:HVI Outpt Note Date of Service:February 06, 2025 14:38 EDT Authorization Status:Final Author or Import Date:DAVID Jamil Lynn on February 06, 2025 14:44 EDT Verified By:DAVID Jamil Lynn on February 06, 2025 14:44 EDT Encounter info:[id number], [facility], Clinic, 02/06/2025 - 02/06/2025 Allergies Allergy/AdvReac Type Severity Reaction Status Date / Time escitalopram Allergy Severe Lethargy Verified 02/10/25 06:05 latex Allergy Mild Verified 02/10/25 06:05 aspirin AdvReac Intermediate Abdominal Verified 02/10/25 06:05 Pain Klxcqvt-CEV-NbX Reductase AdvReac Mild Verified 02/10/25 06:05 Inhibitor Home Medications Medication Instructions Recorded Confirmed Type albuterol sulfate 90 mcg/actuation 1 inh inhalation Q6H PRN shortness 04/08/24 02/10/25 Rx aerosol inhaler of breath or wheezing #6.7 grams fluticasone propionate 50 2 spray NA DAILY #16 grams 04/08/24 02/10/25 Rx mcg/actuation nasal spray,suspension loratadine 10 mg tablet (Wal-itin) 10 mg PO QAM #30 tabs 04/08/24 02/10/25 Rx Oxygen Home #1 ea 10/13/24 02/10/25 Rx fluticasone 500 mcg-salmeterol 50 1 inh inhalation BID #60 ea 11/14/24 02/10/25 Rx mcg/dose blistr powdr for inhalation (Advair Diskus) amlodipine 5 mg tablet (Norvasc) 5 mg PO HS 02/04/25 02/10/25 History ibuprofen 200 mg tablet 200 mg PO Q6H PRN Pain 02/04/25 02/10/25 History tiotropium bromide 18 mcg capsule 1 cap inhalation DAILY 02/04/25 02/10/25 History with inhalation device Past Med/Surg History Problem List Claudication of left lower extremity (Acute) Left leg pain (Acute) Microscopic hematuria Bronchiectasis Pulmonary nodule Acute hypoxic respiratory failure COPD exacerbation COPD with hypoxia (Acute) Medical History Tobacco abuse Hx of ischemic right MCA stroke HTN (hypertension) Dyslipidemia COPD (chronic obstructive pulmonary disease) Surgical History S/P endometrial ablation H/O tubal ligation History of dental surgery Family History Other Diabetes Hypertension Social History Smoking Status: Current every day smoker Tobacco Type: Cigarettes packs per day: 1; Do You Dip or Chew Tobacco: No; Hx Alcohol Use: Yes Alcohol Intake Frequency: Monthly or Less Hx Substance Use: No Preferred Language: Azerbaijani Communication Ability: Effective Clinical Services Manager Required: No Beliefs That Will Affect Care: None marital status: Single Current Living Situation: Alone Feels Safe at Home: Yes Assistive Devices: None Results & Data Vital Signs (Past 12 Hours) Vital Signs Temp Pulse Resp BP Pulse Ox O2 Del Method O2 Flow Rate 02/10/25 06:28 36.6 C 82 24 146/82 H 94 Nasal Cannula 2 Signed By: <Electronically signed by Russel Arias MD> 02/10/25 0751 Created: 02/10/25 0750 The status of this report is Signed. Draft = Not yet reviewed or approved by Medical Physician. Signed = Reviewed and approved by Medical Physician. Allergies Allergy/AdvReac Type Severity Reaction Status Date / Time escitalopram Allergy Severe Lethargy Verified 02/16/25 11:20 latex Allergy Mild localized Verified 02/16/25 11:20 redness aspirin AdvReac Intermediate Abdominal Verified 02/16/25 11:20 Pain Pxtrtrr-RNB-ZdH Reductase AdvReac Mild Muscle Pain Verified 02/16/25 11:21 Inhibitor Home Medications Medication Instructions Recorded Confirmed Type albuterol sulfate 90 mcg/actuation 1 inh inhalation Q6H PRN shortness 04/08/24 02/16/25 Rx aerosol inhaler of breath or wheezing #6.7 grams fluticasone 500 mcg-salmeterol 50 1 inh inhalation BID #60 ea 11/14/24 02/16/25 Rx mcg/dose blistr powdr for inhalation (Advair Diskus) amlodipine 5 mg tablet (Norvasc) 5 mg PO HS 02/04/25 02/16/25 History ibuprofen 200 mg tablet 200 mg PO Q6H PRN Pain 02/04/25 02/16/25 History tiotropium bromide 18 mcg capsule 1 cap inhalation QAM 02/04/25 02/16/25 History with inhalation device Oxygen Home #1 ea 02/16/25 Rx fluticasone propionate 50 2 spray NA DAILY PRN Congestion 02/16/25 02/16/25 History mcg/actuation nasal spray,suspension loratadine 10 mg tablet (Wal-itin) 10 mg PO QAM PRN Allergy Symptoms 02/16/25 02/16/25 History Past Med/Surg History Problem List (Updated 02/19/25 @ 00:06 by Background Saúl) Encounter for pre-operative examination Microscopic hematuria Bronchiectasis Pulmonary nodule COPD with hypoxia (Acute) Medical History (Updated 02/19/25 @ 00:06 by Background Saúl) AAA (abdominal aortic aneurysm) 3 cm infrarenal Pulmonary nodule Claustrophobia severe RBANT (generalized anxiety disorder) cannot tolerate meds for this, manages on own History of COVID-20 May 2022 Factor 5 Leiden mutation, heterozygous On home oxygen therapy 1 LPM at HS Tobacco abuse Hx of ischemic right MCA stroke Oct 2015 > does have slight reading difficulty since then, possibly related to Factor 5 dx shortly after HTN (hypertension) Dyslipidemia COPD (chronic obstructive pulmonary disease) uses res inh "off and on" Surgical History History of colonoscopy S/P endometrial ablation H/O tubal ligation History of dental surgery Family History Other Diabetes Hypertension Social History Smoking Status: Current every day smoker Tobacco Type: Cigarettes packs per day: 1; Cigarettes Per Day: 1-1.5 ppd > advised npo; Second Hand Exposure: No; Do You Dip or Chew Tobacco: No; Tobacco Cessation Education Requested by Patient: No Hx Alcohol Use: Yes Alcohol type: hard liquor Alcohol Intake Frequency: Monthly or Less Hx Substance Use: No Preferred Language: Azerbaijani Communication Ability: Effective Clinical Services Manager Required: No Beliefs That Will Affect Care: None marital status: Single Current Living Situation: Alone Other Information That Helps Us Care for You: No Feels Safe at Home: Yes Safety Concerns: Feels Safe At This Time Assistive Devices: Denture - Upper, Denture - Lower, Glasses and Oxygen - at Night
[2025-03-01] MEDS ORDERED: PROMETHAZINE HCL 6.25 MG in SODIUM CHLORIDE 0.9% 50 ML IV PRN (06:48)
[2025-03-01] MEDS ORDERED: HYDROmorphone INJ 1 MG/ML SYRINGE IV PRN (06:48)
[2025-03-01] MEDS ORDERED: ATROPINE SULFATE 0.1 MG/ML 10ML SYR IV PRN (06:48)
[2025-03-01] MEDS ORDERED: ePHEDrine sulfate 50 MG/ML AMP IV PRN (06:48)
[2025-03-01] MEDS ORDERED: ONDANSETRON INJ 2 MG/ML 2 ML VIAL IV PRN (06:48)
--- OUTSIDE RECORDS SUMMARY | 2025-03-01 07:04 | External Medical Summary | Continuity of Care Document ---
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 OUTPATIENT NOTE Name: JOSE MAYNARD Patient Number: [id number] : 1960 Date of Service: 02/15/2025 Chief Complaint: Discuss Surgery HPI: Ms. Maynard is an elderly female presents to Dr. Arias's vascular surgery clinic today for an office visit to discuss her recent ultrasound findings. Patient was initially seen in our office a few weeks ago for abdominal aortic aneurysm, and was noted to have symptoms concerning for claudication and rest pain of her left lower extremity. She was sent for an ultrasound of her leg, which demonstrates severe peripheral arterial disease with a left leg BREANNA of 0.2. She endorsed severe claudication and confirmed that she is only able to walk 10-15 steps before stopping due to pain in her left calf and numbness in her left foot. She feels sometimes that she is almost dragging her left foot, and limps when she is ambulating. She has pain in her left lower leg and foot when she is laying in bed at night, which is improved when she sits with her legs over the side of the bed or stands up on her legs to walk around. For her CLTI, patient underwent an angiogram earlier this month. This demonstrated a long segment SFA occlusion with reconstitution of the tibioperoneal trunk. This was not suitable for endovascular intervention. She returns to the office today to discuss surgery, specifically a LLE bypass. She recently underwent vein mapping that showed she had adequate caliber GSV. She denies new wounds. No changes to her health since the last visit Current Home Meds: (Last Updated 02/15 08:12) albuterol (Albuterol (Eqv-ProAir HFA) 90 mcg/inh inhalation aerosol) 90 mcg inhaled q6h PRN: as needed for shortness of breath or wheezing amLODIPine (amLODIPine 5 mg oral tablet) 5 mg PO Daily fluticasone-salmeterol (Advair Diskus 500 mcg-50 mcg) 1 puff PO bid guaifenesin-pseudoephedrine (Mucinex D Max Strength 120 mg-1200 mg oral tablet, extended release) 1 tab PO q12h PRN: congestion ibuprofen 800 mg PO Daily loratadine (Claritin 10 mg oral tablet) 10 mg PO Daily PRN: as needed for allergy symptoms tiotropium (Spiriva 18 mcg inhalation capsule) 18 mcg inhaled Daily Allergies and Sensitivities: escitalopram(Somnolence) Latex(rash) statins(muscle spasms, malaise) aspirin(upset stomach and bloody stools) Past Medical History: Problems: Polyp of colon Hematuria Erythrocytosis Factor V deficiency Requires oxygen therapy Statin intolerance Infrarenal abdominal aortic aneurysm, without rupture HTN, goal below 130/80 HLD (hyperlipidemia) History of CVA (cerebrovascular accident) BRANT (generalized anxiety disorder) Depression COPD with emphysema (atherosclerosis) Body mass index [BMI] 31.0-31.9, adult GERD without esophagitis Vitamin D deficiency Tobacco user Pulmonary nodule OBJECTIVE Vitals: Last Updated 02/15/25 08:14 Date Temp BP Location Pulse RR SpO2 Pain 02/15/25 124/82 Right Arm 95 90 0 02/06/25 0 02/06/25 138/78 Right Arm 88 88 Vital Signs are the last 3 documented. No Orthostatic Data Available Height and Weight: Last Updated 12/22/24 09:04 Date BMI Wt(kg) Wt(lb) Method Ht(cm) (ft-in) Method 12/22/24 80.9 178 Standing Scale 11/09/24 31.89 79 174 Standing Scale 157.4 5-2 Patient stated 09/22/24 31.69 78.5 173 Standing Scale 157.4 5-2 Standing Heights and Weights are the last 3 documented. Physical Exam General: no acute distress, resting comfortably in chair HEENT: normocephalic, atraumatic Cardiovascular: Regular rate Pulmonary: breathing comfortably on room air, equal chest rise bilaterally Abdomen: soft, nondistended Extremity: Non palpable pulses. Dependent rubor of the left foot Neuro: CNII-CNXII grossly intact, no focal deficits appreciated Skin: warm and well perfused, no rashes or jaundice appreciated ASSESSMENT: _ PLAN: _ 1 ) Severe peripheral arterial disease with rest pain left leg Ms. Maynard does have severe peripheral arterial disease in her bilateral lower extremities, worse in the left leg than the right. She does have symptoms consistent with short distance claudication and rest pain of the left foot. She underwent an angiogram that showed a long segment SFA and popliteal occlusion on the left not suitable to endovascular intervention. She does have a TP trunk bypass target in her LLE. Due to the severity of her symptoms and her disease, she would benefit from a LLE bypass, specifically a ASSISTANT PASSENGER LOCOMOTIVE ENGINEER-TP trunk bypass using GSV. The details of the procedure as well as the risks including bleeding, infection, need for future intervention, failure to improve symptoms, stroke, heart attack and were explained in detail. The fact that the patient is at high risk of limb loss, particularly with failure of the bypass, was discussed as well. Potential alternatives including conservative management were discussed. The patient and her family were provided the opportunity to ask questions and they were answered in detail to her satisfaction. She elected to proceed with surgery. Patient expressed understanding and agreement to proceed. This will occur within the next several weeks or so. She agrees to call with any questions or concerns. Thank you for letting us participate in the care of this patient. I saw and evaluated the patient. Discussed with the resident and agree with the resident's findings and plan as documented in the resident's note. I have personally spent __40___ minutes performing [id number] and fql-[id number]-bj-face activities on this date of service. Activities Include: _x_ review of the medical record _x_ obtaining a history _x_ physical exam/evaluation __ review labs _x_ review radiology reports _x_ counseling/educating patient/family/caregiver __ discussion/referral to other healthcare professional _x_ documenting care in the medical record __ independent interpretation of results __ communication of results to patient/family/caregiver __ coordination of care Immunizations Given and Recorded Vaccine Date Status Refusal Reason pneumococcal 23-valent vaccine 06/03/19 Recorded tetanus/diphtheria/pertuss, acel (Tdap) 04/30/15 R ecorded tetanus/diphtheria/pertuss, acel (Tdap) 04/10/15 R ecorded Medications Advair Diskus 500 mcg-50 mcg Start: 11/16/24 4:16:00 PM EST, 1 puff, PO, bid, Disp# 1 each, Refills: 1, Pharmacy: [id number] Start Date: 11/16/24 Stop Date: 01/15/25 Status: Ordered Quantity: 1.0 Unit: each Repeat number: 2 Albuterol (Eqv-ProAir HFA) 90 mcg/inh inhalation aerosol Start: 11/09/24 1:54:00 PM EST, 90 mcg =, inhaled, q6h, Disp# 6.7 g, Refills: 5, PRN: as needed for shortness of breath or wheezing, Pharmacy: [id number] Start Date: 11/09/24 Status: Ordered Quantity: 6.7 Unit: g Repeat number: 6 amLODIPine 5 mg oral tablet Start: 10/14/24 4:12:00 PM EST, 1 tab, PO, Daily, Disp# 90 tab, Refills: 3, Pharmacy: [facility]/pharmacy #[id number] Start Date: 10/14/24 Status: Ordered Quantity: 90.0 Unit: tab Repeat number: 4 Claritin 10 mg oral tablet Start: 09/22/24 9:13:00 AM EST, 1 tab, PO, Daily, PRN: as needed for allergy symptoms Start Date: 09/22/24 Status: Ordered Repeat number: 1 ibuprofen Start: 11/09/24 1:32:00 PM EST, 800 mg =, PO, Daily Start Date: 11/09/24 Status: Ordered Repeat number: 1 Mucinex D Max Strength 120 mg-1200 mg oral tablet, extended release Start: 11/09/24 1:32:00 PM EST, 1 tab, PO, q12h, PRN: congestion Start Date: 11/09/24 Status: Ordered Repeat number: 1 Spiriva 18 mcg inhalation capsule Start: 10/20/24 8:26:00 AM EST, 1 cap, inhaled, Daily, Disp# 30 cap, Refills: 3, Pharmacy: [facility]/pharmacy #[id number] Start Date: 10/20/24 Status: Ordered Quantity: 30.0 Unit: cap Repeat number: 4 Mental Status 02/15/25 Barriers to Learning one year None evide nt Mandatory Health Literacy Documentation Yes Health Literacy Communication Barriers N ever Primary Language Belarusian Problem List Condition Confirmation Course Effective Dates Status H ealth Status Informant Infrarenal abdominal aortic aneurysm, without rupture Confirmed Active Hematuria Confirmed Active Requires oxygen therapy Confirmed Active Depression Confirmed Active Erythrocytosis Confirmed Active Factor V deficiency Confirmed Active GERD without esophagitis Confirmed Active BRANT (generalized anxiety disorder) Confirmed Active History of CVA (cerebrovascular accident) Confirmed Active HLD (hyperlipidemia) Confirmed Active HTN, goal below 130/80 Confirmed Active (atherosclerosis) Confirmed Active Pulmonary nodule Confirmed Active Body mass index [BMI] 31.0-31.9, adult Confirmed Active Polyp of colon Confirmed Active COPD with emphysema Confirmed Active Statin intolerance Confirmed Active Tobacco user Confirmed Active Vitamin D deficiency Confirmed Active Diagnosis Diagnosis Type Effective Dates Health Status Clinical Service Informant 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, left leg Discharge Diagnosis 02/15/25 Procedures Procedure Date Related Diagnosis Body Site Status BLE Angiogram w/o intervention 02/10/25 Completed Stroke 2014 Completed Vital Signs Most recent to oldest [Reference Range]: 1 Heart Rate 95 bpm (02/15/25 8:14 AM) Blood Pressure 124/82mmHg (02/15/25 8:14 AM) Cuff Pulse Pressure 42 mmHg (02/15/25 8:14 AM) BP Location # 1 Right Arm (02/15/25 8:14 AM) Social History Social History Type Response Tobacco Current every day sm oker, Cigarettes Smoking Status Current every day he kash smoker Sex Sex Representation Female (finding) [facility] Outpt Note * MD Arias Eugene J: MODIFY MD Arias Eugene J: MODIFY Event Display: [facility] Outpt Note Authored Date: [id number] [facility] OUTPATIENT NOTE Name: JOSE MAYNARD Patient Number: [id number] : 1960 Date of Service: 02/15/2025 Chief Complaint: Discuss Surgery HPI: Ms. Maynard is an elderly female presents to Dr. Arias's vascular surgery clinic today for an officevisit to discuss her recent ultrasound findings. Patient was initially seen in our office a few weeks ago for abdominal aortic aneurysm, and was noted to have symptoms concerning for claudication andrest pain of her left lower extremity. She was sent for an ultrasound of her leg, which demonstrates severe peripheral arterial disease with a left leg BREANNA of 0.2. She endorsed severe claudication and confirmed that she is only able to walk 10-15 steps before stopping due to pain in her left calf and numbness in her left foot. She feels sometimes that she is almost dragging her left foot, and limps when she is ambulating. She has pain in her left lower leg and foot when she is laying in bed at night, which is improved when she sits with her legs over the side of the bed or stands up on her legs to walk around. For her CLTI, patient underwent an angiogram earlier this month. This demonstrated a long segment SFA occlusion with reconstitution of the tibioperoneal trunk. This was not suitable for endovascular intervention. She returns to the office today to discuss surgery, specifically a LLE bypass. She recently underwent vein mapping that showed she had adequate caliber GSV. She denies new wounds. No changes to her health since the last visit Current Home Meds: (Last Updated 02/15 08:12) albuterol (Albuterol (Eqv-ProAir HFA) 90 mcg/inh inhalation aerosol) 90 mcg inhaled q6h PRN: as needed for shortness of breath or wheezing amLODIPine (amLODIPine 5 mg oral tablet) 5 mg PO Daily fluticasone-salmeterol (Advair Diskus 500 mcg-50 mcg) 1 puff PO bid guaifenesin-pseudoephedrine (Mucinex D Max Strength 120 mg-1200 mg oral tablet, extended release) 1tab PO q12h PRN: congestion ibuprofen 800 mg PO Daily loratadine (Claritin 10 mg oral tablet) 10 mg PO Daily PRN: as needed for allergy symptoms tiotropium (Spiriva 18 mcg inhalation capsule) 18 mcg inhaled Daily Allergies and Sensitivities: escitalopram(Somnolence) Latex(rash) statins(muscle spasms, malaise) aspirin(upset stomach and bloody stools) Past Medical History: Problems: Polyp of colon Hematuria Erythrocytosis Factor V deficiency Requires oxygen therapy Statin intolerance Infrarenal abdominal aortic aneurysm, without rupture HTN, goal below 130/80 HLD (hyperlipidemia) History of CVA (cerebrovascular accident) BRANT (generalized anxiety disorder) Depression COPD with emphysema (atherosclerosis) Body mass index [BMI] 31.0-31.9, adult GERD without esophagitis Vitamin D deficiency Tobacco user Pulmonary nodule OBJECTIVE Vitals: Last Updated 02/15/25 08:14 Date Temp BP Location Pulse RR SpO2 Pain 02/15/25 124/82 Right Arm 95 90 0 02/06/25 0 02/06/25 138/78 Right Arm 88 88 Vital Signs are the last 3 documented. No Orthostatic Data Available Height and Weight: Last Updated 12/22/24 09:04 Date BMI Wt(kg) Wt(lb) Method Ht(cm) (ft-in) Method 12/22/24 80.9 178 Standing Scale 11/09/24 31.89 79 174 Standing Scale 157.4 5-2 Patient stated 09/22/24 31.69 78.5 173 Standing Scale 157.4 5-2 Standing Heights and Weights are the last 3 documented. Physical Exam General: no acute distress, resting comfortably in chair HEENT: normocephalic, atraumatic Cardiovascular: Regular rate Pulmonary: breathing comfortably on room air, equal chest rise bilaterally Abdomen: soft, nondistended Extremity: Non palpable pulses. Dependent rubor of the left foot Neuro: CNII-CNXII grossly intact, no focal deficits appreciated Skin: warm and well perfused, no rashes or jaundice appreciated ASSESSMENT: _ PLAN: _ 1 ) Severe peripheral arterial disease with rest pain left leg Ms. Maynard does have severe peripheral arterial disease in her bilateral lower extremities, worse inthe left leg than the right. She does have symptoms consistent with short distance claudication andrest pain of the left foot. She underwent an angiogram that showed a long segment SFA and poplitealocclusion on the left not suitable to endovascular intervention. She does have a TP trunk bypass target in her LLE. Due to the severity of her symptoms and her disease, she would benefit from a LLE bypass, specifically a ASSISTANT PASSENGER LOCOMOTIVE ENGINEER-TP trunk bypass using GSV. The details of the procedure as well as the risks including bleeding, infection, need for future intervention, failure to improve symptoms, stroke, heart attack and were explained in detail. The fact that the patient is at high risk of limb loss, particularly with failure of the bypass, was discussed as well. Potential alternatives including conservative management were discussed. The patient and her family were provided the opportunity to ask questions and they were answered in detail to her satisfaction. She elected to proceed with surgery. Patient expressed understanding and agreement to proceed. This will occur within the next several weeks or so. She agrees to call with any questions or concerns. Thank you for letting us participate in the care of this patient. I saw and evaluated the patient. Discussed with the resident and agree with the resident's findingsand plan as documented in the resident's note. I have personally spent __40___ minutes performing pnem-jz-[id number] and bgf-tovp-bv-face activities onthis date of service. Activities Include: _x_ review of the medical record _x_ obtaining a history _x_ physical exam/evaluation __ review labs _x_ review radiology reports _x_ counseling/educating patient/family/caregiver __ discussion/referral to other healthcare professional _x_ documenting care in the medical record __ independent interpretation of results __ communication of results to patient/family/caregiver __ coordination of care Electronic Signature on File CC: Vivian Suarez, [address] [facility] [id number] Electronically Reviewed/Signed by: Jhonathan Slade MD Author Signature Dt/Tm:02/15/2025 08:48 AM Resident Division of General Surgery Electronically Reviewed/Signed by: Russel Arias MD Cosigner Signature Dt/Tm: 02/15/2025 08:54 AM Supervisor Body Assembly Bryson Brown [facility] [place] [address] [facility] [address] [place] [address] PC Patient Care team information Care Team Personnel Name: DO Suarez Allison B Position: Physician - Family Med Member Role: Primary Care Provider Address: [address] [place] [address] Telecom: [phone] Insurance Providers Guarantor name: IVAN Health Plan Information #: 1 Payer: MEDICARE Member Number: [id number] Policy Number: NA Group Number: NA Payer Identifier: [id number] Health Plan Information #: 2 Payer: MEDICARE Member Number: [id number] Policy Number: NA Group Number: NA Payer Identifier: [id number]
--- OUTSIDE RECORDS SUMMARY | 2025-03-01 07:04 | External Medical Summary | Continuity of Care Document ---
Author Name Unknown Organization [place] [id number] [facility] Address [address] [place] [id number] Care Team Providers Care Database Modeler Name Role Phone Vivian Suarez Primary Care Physician [phone] [id number] Date[facility]): 02/13/25 - 02/13/[address], [address] [place] [address] [phone] Discharge Disposition: Home or Self Care Attending Physician: DAVID Jamil Lynn Referring Physician: DO Suarez Allison B Encounter Type: Clinic Allergies, Adverse Reactions, Alerts Substance Criticality Severity Reaction Reaction Severity Status aspirin upset stomach a nd bloody stools Active escitalopram Somnolence Active statins muscle spasms, malaise Active Latex rash Active Immunizations Given and Recorded Vaccine Date Status Refusal Reason pneumococcal 23-valent vaccine 06/03/19 Recorded tetanus/diphtheria/pertuss, acel (Tdap) 04/30/15 R ecorded tetanus/diphtheria/pertuss, acel (Tdap) 04/10/15 R ecorded Medications Advair Diskus 500 mcg-50 mcg Start: 11/16/24 4:16:00 PM EST, 1 puff, PO, bid, Disp# 1 each, Refills: 1, Pharmacy: [facility]/pharm[facility] #[id number] Start Date: 11/16/24 Stop Date: 01/15/25 Status: Ordered Quantity: 1.0 Unit: each Repeat number: 2 Albuterol (Eqv-ProAir HFA) 90 mcg/inh inhalation aerosol Start: 11/09/24 1:54:00 PM EST, 90 mcg =, inhaled, q6h, Disp# 6.7 g, Refills: 5, PRN: as needed for shortness of breath or wheezing, Pharmacy: [facility]/pharmacy #[id number] Start Date: 11/09/24 Status: Ordered Quantity: 6.7 Unit: g Repeat number: 6 amLODIPine 5 mg oral tablet Start: 10/14/24 4:12:00 PM EST, 1 tab, PO, Daily, Disp# 90 tab, Refills: 3, Pharmacy: [facility]/pharmacy #[id number] Start Date: 10/14/24 Status: Ordered Quantity: [...] Daily, Disp# 30 cap, Refills: 3, Pharmacy: [facility]/pharmacy #[id number] Start Date: 10/20/24 Status: Ordered Quantity: 30.0 Unit: cap Repeat number: 4 Problem List Condition Confirmation Course Effective Dates [...] Confirmed Active Vitamin D deficiency Confirmed Active Procedures Procedure Date Related Diagnosis Body Site Status BLE Angiogram w/o intervention 02/10/25 Completed Stroke 2014 Completed Results Radiology Reports * Exam Date Time Procedure Performing Provider Status 02/13/25 2:44 PM VL Vein Mapping Lower Extremity Preop Final Notes: (VL Vein Mapping Lower Extremity Preop) Reason For Exam: LLE for bypass VL Vein Mapping Lower Extremity Preop [facility] FINAL REPORT Name: JOSE MAYNARD : 1960 Visit: [id number] Date: 13 Feb 2025 TYPE OF TEST: Peripheral Venous Testing REASON FOR TEST Pre-Op distal bypass INTERPRETATION/FINDINGS Vein mapping performed of the LEFT lower extremity: 1. Patent great and small saphenous veins without thrombosis. 2. The great small saphenous vein may be an adequate conduit for distal bypass, the diameter ranges from 2.8 - 5.1 mm. 3. The small saphenous vein diameter ranges from 2.1 - 2.6 mm. No prior studies for comparison. IMPRESSION/COMMENTS I have personally reviewed the data relevant to the interpretation of this study. TECHNOLOGIST: Kaitlynn SUAREZ, RDCS, RVT PHYSICIAN: Russel Arias M.D. Signed: 02/13/2025 03:19 PM Final Dictated by:MD Arias Eugene J Dictated DT/TM:02/13/2025 3:20 Signed by:MD Arias Eugene J Signed (Electronic Signature):02/13/2025 3:19 p Transcribed by:STEVE Social History Social History Type Response Tobacco Current every day sm oker, Cigarettes Smoking Status Current every day he kash smoker Sex Sex Representation Female (finding) Patient Care team information Care Team Personnel Name: DO Suarez Allison B Position: Physician - Family Med Member Role: Primary Care Provider Address: [address] [place] [address] Telecom: [phone] Insurance Providers Guarantor name: IVAN Health Plan Information #: 1 Payer: MEDICARE Member Number: [id number] Policy Number: NA Group Number: NA Payer Identifier: [id number] Health Plan Information #: 2 Payer: MEDICARE Member Number: [id number] Policy Number: NA Group Number: NA Payer Identifier: [id number]
[2025-03-01] MEDS ORDERED: DEXAMETHASONE SOD INJ 4 MG/ML VIAL ONE (07:13)
[2025-03-01] MEDS ORDERED: PROPOFOL IV EMULSION 10 MG/ML 20 ML VIAL IV ONE ×2 (07:13→12:32)
[2025-03-01] MEDS ORDERED: ONDANSETRON INJ 2 MG/ML 2 ML VIAL ONE (07:13)
[2025-03-01] MEDS ORDERED: ROCURONIUM BROMIDE 10 MG/ML 5 ML VIAL IV ONE ×2 (07:13→08:52)
[2025-03-01] MEDS ORDERED: LIDOCAINE 2% 2 ML VIAL/AMP(20MG/ML) INFIL ONE (07:13)
[2025-03-01] MEDS ORDERED: MIDAZOLAM HCL 1 MG/ML 2ML VIAL ONE (07:14)
[2025-03-01] MEDS ORDERED: fentaNYL citrate PF 100 MCG/2 ML VIAL ONE ×3 (07:14→13:13)
[2025-03-01] MEDS ORDERED: PHENYLEPHRINE HCL 10 MG/ML VIAL ONE (07:19)
[2025-03-01] MEDS: SODIUM CHLORIDE 0.9% 1,000 ML IV SCH (07:27)
[2025-03-01] MEDS ORDERED: KETAMINE HCL 10MG/ML SYR ONE (07:31)
[2025-03-01] MEDS: ALBUT/IPRATROP 3MG/0.5MG NEB 3 ML VIAL INH PRN (07:32)
--- NOTE | 2025-03-01 07:37 | History & Physical Bridge Note ---
Date of Service March 01, 2025 History & Physical Bridge Note I have examined the patient, reviewed the History & Physical and in the interval since the performance of the History & Physical I have noted the following changes of clinical significance: no changes noted
--- NOTE | 2025-03-01 07:57 | Anesthesia Procedure Note ---
Anesthesia Procedure Note Arterial Line Note Date of procedure: 03/01/25 Consent: Risk / Benefits Reviewed With: PT / POA / Parent / Guardian, Accepts Plan, Informed Consent Obtained and All Questions Answered Monitors attached: Blood Pressure, EKG and Pulse Oximetry Time out completed: Yes Premedication: None Laterality: Right Location: Radial Hand hygeine: Soap and water Equipment/Supplies: Cap, Mask, Sterile gloves, Sterile drapes and Sterile procedures used Skin prep: Chloraprep Local medication: 1% Lidocaine (ml) Ultrasound used: Yes US equipment and supplies: Sterile Gel and Sterile Probe Cover Attempts: 1 Procedure Summary: Arterial Line Note Date and time of procedure: Consent: Informed consent obtained from the patient or designated proxy. The inherent risks, expected benefits, treatment alternatives, as well as the technical aspects of the procedure were discussed with the patient and a full explanation was given. Patient was given the opportunity to ask questions, which were answered to their satisfaction. Procedure Summary: 20 gauge angiocath advanced until return of bright red blood. Catheter threaded using seldinger technique with return of pulsatile, bright red blood. Catheter secured with tape and covered with occlusive dressing. Waveform consistent with correct arterial placement. After placement, normal perfusion was observed di stal to the site of catheter placement. Post-procedure: Patient tolerated the procedure well without apparent complications Post-Procedure: Pt hemodynamically stable, Pt tolerates well and No complication
[2025-03-01] MEDS: ceFAZolin 2000MG 2,000 MG/15 ML SYR IV SCH ×2 (08:20→18:49)
[2025-03-01] MEDS ORDERED: HEPARIN SOD (PORCINE) 1000 UNIT/ML ONE ×2 (10:22→13:09)
[2025-03-01] MEDS ORDERED: ceFAZolin 330 MG/ML 1 GM VIAL ONE (11:31)
[2025-03-01] MEDS: ceFAZolin 2000MG 2,000 MG/15 ML SYR IV ONE (12:00)
[2025-03-01] MEDS ORDERED: ACETAMINOPHEN 1000 MG/100 ML IV IV ONE (12:29)
[2025-03-01] MEDS ORDERED: PHENYLEPHRINE 100MCG/ML 5ML SYR ONE ×2 (14:24→15:27)
[2025-03-01] MEDS ORDERED: HYDROmorphone INJ 2 MG/ML SYR/VIAL ONE (15:17)
--- NOTE | 2025-03-01 15:20 | Post Operative Brief Note ---
Immediate Post Op Note Date of Surgery March 01, 2025 Pre & Post Diagnosis Operation Date: 03/01/25 08:00 Pre-Op Diagnosis: Severe peripheral arterial disease Post-Op Diagnosis: Severe peripheral arterial disease I identified the patient and participated in the time-out.: Yes Procedure Operation Date: 03/01/25 08:00 Actual Procedures p Left Leg Femoral to Posterior Tibial Artery Bypass(Left) - Russel Arias MD Surgeon Russel Arias MD Women Nurse MD Sofia L.Minarchick,PAC Estimated Blood Loss 200 Findings Consistent with Post-Op Diagnosis Drains Fagan Catheter Anesthesia Type General Complications none Disposition Accompanied Patient To Recovery: No Disposition: Recovery Room
[2025-03-01] MEDS: HEPARIN (PORCINE) 1000 UNIT/ML 10 ML (CATH LAB USE ONLY) ONE (15:49)
[2025-03-01] MEDS: GELATIN SPONGE SZ 100 ONE (15:50)
[2025-03-01] MEDS ORDERED: ALBUTEROL HFA 8 GM INHALER INH ONE (15:58)
[2025-03-01] MEDS: ceFAZolin 330 MG/ML 1 GM VIAL ONE (16:07)
[2025-03-01] MEDS: VISIPAQUE IV ONE (16:08)
[2025-03-01] MEDS: THROMBIN FOR SOLN 20000 UNIT KIT ONE (16:08)
[2025-03-01] MEDS: PAPAVERINE HCL INJ 30 MG/ML 2 ML VIAL ONE (16:09)
--- NOTE | 2025-03-01 16:12 | Operative Report ---
Post Operative Report Pre & Post Diagnosis Operation Date: 03/01/25 08:00 Pre-Op Diagnosis: Severe peripheral arterial disease Post-Op Diagnosis: Severe peripheral arterial disease I identified the patient and participated in the time-out.: Yes Procedure Operation Date: 03/01/25 08:00 Actual Procedures p Left Leg Femoral to Tibioperoneal Artery Bypass(Left) - Russel Arias MD Surgeon Russel Arias MD Flue Lining Dipper MD Sofia LJenniferMinarchick,PAC Estimated Blood Loss 200 Findings Consistent with Post-Op Diagnosis Severe disease of the proximal SFA. Occlusion of below knee popliteal extending into the TP trunk. The distal TP trunk was patent. On completion angiogram there was intact inline flow to the foot via the PT Specimens None Anesthesia Type General Complications None Indications Nisha Jon is a pleasant 65 year old female with CLTI of the left leg. After discussion of the procedure, risks and benefits, she elected to proceed with the above procedure, LLE HE[employer] AND SOCIAL CARE TEACHER-TP trunk bypass with insitu GSV Description of Procedure The patient was taken to the operating room and placed in the supine position. General endotracheal anesthesia was induced. The left groin and left leg were prepped and draped circumferentially in the usual sterile fashion. A longitudinal incision was made over the left groin with a #15 blade. Dissection continued with with electrocautery through the subcutaneous tissue. Once the femoral sheath was encountered dissection was switched to Metzenbaum scissors. The femoral sheath was opened. The HEALTH AND SOCIAL CARE TEACHER and SFA and profunda were controlled. Attention was then turned to the distal popliteal artery. An incision was made in the medial leg below the knee with a #15 blade and scissors. Care was taken to control the GSV. Electrocautery and then Metzenbaum scissors once the fascia was encountered. This was opened. The below knee popliteal artery was encountered. It appeared occluded. Dissection continued distally and the distal BK pop, proximal AT and TP trunk were exposed and controlled. The very distal popliteal onto the TP trunk appeared patent. The GSV was then exposed proximally in the groin and distally in the leg. 6000U heparin were given to maintain a therapeutic ACT. We then anastomosed the proximal GSV to the common femoral artery and proximal SFA using 5-0 Prolene suture. This was allowed to backbleed through the vein. The anastomosis appeared hemostatic. We then took the distal GSV, mobilized it and passed our valvulotome proximally. Following this there was good inflow through the vein. It appeared pulsatile. We then clamped the distal pop and TP trunk and performed the distal anastomosis using running 6-0 Prolene in an end to side fashion. On completion the anastomosis was hemostatic. An angiogram was then performed with access of the HE[employer] AND SOCIAL CARE TEACHER proximal to the bypass. There were several branches off the GSV which were marked. The branches were ligated. However just distal to our bypass there was an occlusion of the TP trunk. We then dissected out the distal TP trunk to the bifurcation. This was patent. We then used the remaining GSV and performed a distal anastomosis with running 6-0 Prolene. There was good backbleeding at this point. We then transected the initial bypass and performed an end to end anastomosis with the new distal target. On completion, there were remaining valves limiting flow in the new vein segment. The end to end anastomosis was reopened and the valvulotome was passed again. The end to end anastomosis was redone. At this point there was a good pulse in the graft and a signal in the foot. Completion angiogram demonstrated good flow to the foot via the PT and a patent bypass without stenosis. Hemostasis was obtained. The wounds was closed with interrupted 2-0 Vicryl sutures followed by 3-0 running subcutaneous Vicryl sutures. The skin was closed with rey. A total of 0.3 min fluoro time, 17mGy and 64cc of contrast were used Dr. Arias was present and scrubbed for the entire procedure. I attest to the content of the Intraoperative Record and any orders documented therein. Any exceptions are noted below.
[2025-03-01 16:44] LABS: Hemoglobin 15.2 g/dl (12.0-16.0); Mean Corpuscular Hemoglobin 32.8 pg (25.0-34.0); Mean Corpuscular Hgb Conc 32.3 g/dL (32.0-36.0); Mean Corpuscular Volume 101.3 fL (80.0-100.0); Mean Platelet Volume 9.3 fL (9.4-12.4); Platelet Count 167 K/uL (130-400); RDW Coefficient of Variation 12.3 % (11.5-14.5); RDW Standard Deviation 46.2 fL (36.4-46.3); Red Blood Count 4.64 M/uL (4.20-5.40); White Blood Count 12.73 K/ul (4.8-10.8)
--- NOTE | 2025-03-01 16:46 | Anesthesiology Progress Note ---
Date of Service March 01, 2025 Anesthesia Post Procedure Vital Signs Vital Signs: Temp Pulse Pulse Resp BP BP Pulse Ox 03/01/25 16:40 80 18 139/81 125/97 92 03/01/25 16:30 78 12 126/83 147/72 H 95 03/01/25 16:19 36.6 C 79 14 148/92 H 92 03/01/25 07:32 84 18 92 03/01/25 06:57 03/01/25 06:54 36.6 C 90 24 133/89 90 O2 Del Method O2 Flow Rate 03/01/25 16:40 Oxymask 5 03/01/25 16:30 Oxymask 10 03/01/25 16:19 Oxymask 10 03/01/25 07:32 Room Air 03/01/25 06:57 Room Air 03/01/25 06:54 Room Air Pain Intensity Left Leg: Pain Intensity: 8 Transfer of Care Handoff Completed per policy Notes Mental Status: alert / awake / arousable and participated in evaluation Patient Amnestic to Procedure: Yes Nausea / Vomiting: adequately controlled Pain: adequately controlled Airway Patency, RR, SpO2: stable & adequate BP & HR: stable & adequate Hydration State: stable & adequate Anesthetic Complications: no major complications apparent and Pt Satisfied with anesthetic care
[2025-03-01] MEDS: fentaNYL citrate PF 100 MCG/2 ML VIAL IV PRN (16:50)
[2025-03-01 17:03] LABS: Basophils # (auto) 0.03 K/uL (0.00-0.20); Basophils % (auto) 0.2 %; Eosinophils # (auto) 0.01 K/uL (0.00-0.50); Eosinophils % (auto) 0.1 %; Immature Granulocytes # (auto) 0.07 K/uL (0.01-0.20); Immature Granulocytes % (auto) 0.5 %; Lymphocytes # (auto) 0.65 K/uL (1.20-3.40); Lymphocytes % (auto) 5.1 %; Monocytes # (auto) 0.16 K/uL (0.11-0.59); Monocytes % (auto) 1.3 %; Neutrophils # (auto) 11.81 K/uL (1.40-6.50); Neutrophils % (auto) 92.8 %
[2025-03-01] MEDS ORDERED: FLUTICASONE PROPIONATE NA SPR 16 GM BTL PRN (18:00)
[2025-03-01] MEDS ORDERED: ALBUTEROL HFA 8 GM INHALER INH PRN (18:00)
[2025-03-01] MEDS ORDERED: oxyCODONE/ACETAMINOPHEN 5mg/325mg TAB PO PRN (18:00)
--- NOTE | 2025-03-01 18:17 | Critical Care Consultation ---
Date of Consultation March 01, 2025 Assessment & Plan (1) Bronchiectasis: (2) Acute on chronic respiratory failure with hypoxemia: (3) HTN (hypertension): (4) Dyslipidemia: (5) Peripheral vascular disease: (6) Tobacco abuse: (7) COPD (chronic obstructive pulmonary disease): Plan PFT 11/23/2024 personally reviewed: Severe obstructive lung dysfunction, insignificant bronchodilator response, air trapping, moderate decrease in DLCO FVC 2.16 L 76%, FEV1 0.86 L 39%, FEV1/FVC 40%, RV 185%, TLC 120%, RV/TLC 155%, DLCO 57% CT chest 10/20/2024 personally reviewed: Centrilobular and paraseptal emphysema appreciated bilaterally Minimal bronchiectasis bilateral lower lobes No significant mediastinal lymphadenopathy -- Peripheral vascular disease S/p left femoral to tibioperoneal bypass by Dr. 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 Change her inhalers to nebulized budesonide and formoterol Keep O2 saturation between 90-92% Periop antibiotics as per vascular surgery Case was discussed with RN at bedside. Please note the above document was generated using voice recognition software. It may contain grammatical, syntax or spelling errors.Any formal questions or concerns about the content, text or information contained within the body of this dictation should be directly addressed to the provider for clarification. History of Present Illness Attending Physician: Russel Arias MD History of Present Illness 65-year-old female presented to the hospital for femoropopliteal Past medical history: COPD, pulmonary nodule, hypertension Sent to the ICU for post op care At the time of examination the patient was saturating 93-94% on 5 L oxime mask She was still under the effect of anesthesia. She was answering all the questions appropriately Denied any chest pain, no abdominal pain No headache, no nausea, no vomiting Did complain of some soreness in the left leg. Denies any shortness of breath, no cough No hemoptysis No unusual headache or blurry vision right now Social history: [id number] smoking history, currently smoking a pack a day. 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 No history of lung cancer in the family Allergies Allergy/AdvReac Type Severity Reaction Status Date / Time escitalopram Allergy Severe Lethargy Verified 03/01/25 06:52 latex Allergy Mild localized Verified 03/01/25 06:52 redness aspirin AdvReac Intermediate Abdominal Verified 03/01/25 06:52 Pain [id number] Reductase AdvReac Mild Muscle Pain Verified 03/01/25 06:52 Inhibitor Home Medications Medication Instructions Recorded Confirmed Type albuterol sulfate 90 mcg/actuation 1 inh inhalation Q6H PRN shortness 04/08/24 03/01/25 Rx aerosol inhaler of breath or wheezing #6.7 grams fluticasone 500 mcg-salmeterol 50 1 inh inhalation BID #60 ea 11/14/24 03/01/25 Rx mcg/dose blistr powdr for inhalation (Advair Diskus) amlodipine 5 mg tablet (Norvasc) 5 mg PO HS 02/04/25 03/01/25 History ibuprofen 200 mg tablet 200 mg PO Q6H PRN Pain 02/04/25 03/01/25 History tiotropium bromide 18 mcg capsule 1 cap inhalation QAM 02/04/25 03/01/25 History with inhalation device Oxygen Home #1 ea 02/16/25 Rx fluticasone propionate 50 2 spray NA DAILY PRN Congestion 02/16/25 03/01/25 History mcg/actuation nasal spray,suspension loratadine 10 mg tablet (Wal-itin) 10 mg PO QAM PRN Allergy Symptoms 02/16/25 03/01/25 History Patient History Medical History (Updated 03/01/25 @ 18:33 by Doreen Sheikh MD, [facility]) AAA (abdominal aortic aneurysm) 3 cm infrarenal Pulmonary nodule Claustrophobia severe BRANT (generalized anxiety disorder) cannot tolerate meds for this, manages on own History of COVID-20 May 2022 Factor 5 Leiden mutation, heterozygous On home oxygen therapy 1 LPM at HS Tobacco abuse Hx of ischemic right MCA stroke Oct 2015 > does have slight reading difficulty since then, possibly related to Factor 5 dx shortly after HTN (hypertension) Dyslipidemia COPD (chronic obstructive pulmonary disease) uses res inh "off and on" Surgical History History of colonoscopy S/P endometrial ablation H/O tubal ligation History of dental surgery Family History Other Diabetes Hypertension Social History Smoking Status: Current every day smoker Tobacco Type: Cigarettes packs per day: 1; Second Hand Exposure: No; Do You Dip or Chew Tobacco: No; Hx Alcohol Use: Yes Alcohol type: hard liquor Alcohol Intake Frequency: Monthly or Less Hx Substance Use: No Preferred Language: Mauritanian Communication Ability: Effective Wood Bucker Required: No Beliefs That Will Affect Care: None marital status: Single Current Living Situation: Alone Feels Safe at Home: Yes Assistive Devices: Denture - Upper, Denture - Lower, Glasses and Oxygen - at Night Review of Systems 2 Review of Systems: All systems reviewed & are unremarkable except as noted in HPI & below Physical Exam 2 Physical Exam: Constitutional: No acute distress HEENT: EOMI, PERRLA Respiratory system: Decreased air entry bilaterally, no rhonchi, minimal crackles bilateral lower lobes, positive expiratory wheeze bilaterally CVS: S1-S2 positive, no murmurs or gallops Abdomen: Soft, nontender, nondistended, positive bowel sounds x4 Extremities: Febrile pulses bilaterally dorsalis pedis, +2 pulses bilateral radialis, no cyanosis, no edema Neuro: Awake alert oriented x3 Psych: Normal mood and affect G/U: Positive Fagan Skin: no rashes, warm and dry Lymphatic: no cervical or axillary lymphadenopathy Results & Data Results & Data Vital Signs (Past 12 Hours) Vital Signs Temp Pulse Pulse Pulse Resp BP BP 03/01/25 18:00 72 127/87 03/01/25 17:20 36.5 C 76 14 129/81 03/01/25 17:10 74 12 114/79 03/01/25 17:00 75 12 114/76 03/01/25 16:50 75 12 134/82 03/01/25 16:40 80 18 139/81 03/01/25 16:30 78 12 126/83 03/01/25 16:19 36.6 C 79 14 148/92 H 03/01/25 07:32 84 18 03/01/25 06:57 03/01/25 06:54 36.6 C 90 24 133/89 BP Pulse Ox O2 Del Method O2 Flow Rate 03/01/25 18:00 97 Oxymask 5 03/01/25 17:20 122/94 94 Oxymask 5 03/01/25 17:10 122/64 90 Oxymask 5 03/01/25 17:00 118/64 90 Oxymask 5 03/01/25 16:50 136/72 90 Oxymask 5 03/01/25 16:40 125/97 92 Oxymask 5 03/01/25 16:30 147/72 H 95 Oxymask 10 03/01/25 16:19 92 Oxymask 10 03/01/25 07:32 92 Room Air 03/01/25 06:57 Room Air 03/01/25 06:54 90 Room Air Laboratory Results 03/01/25 16:28 Coding Level of Care Code 42304 INT INP/OBS CARE MIN Diagnoses Bronchiectasis J47.9 Acute on chronic respiratory failure with hypoxemia J96.21 HTN (hypertension) I10 Dyslipidemia E78.5 Peripheral vascular disease I73.9 Tobacco abuse Z72.0 COPD (chronic obstructive pulmonary disease) J44.9
[2025-03-01] MEDS ORDERED: ALBUT/IPRATROP 3MG/0.5MG NEB 3 ML VIAL NEB PRN (18:31)
[2025-03-01] MEDS: LACTATED RINGER'S 1,000 ML IV SCH (18:50)
[2025-03-01] MEDS: fentaNYL citrate PF 100 MCG/2 ML VIAL ONE (19:31)
[2025-03-01] MEDS: BUDESONIDE 0.5 MG/2 ML VIAL (PULMICORT) NEB SCH (19:52)
[2025-03-01] MEDS: FORMOTEROL 20 MCG/2 ML VIAL NEB SCH (19:52)
[2025-03-01] MEDS: MoRPHine SULFATE 4 MG/ML 1 ML CARP\\VIAL IV PRN (20:13)
[2025-03-01] MEDS: ONDANSETRON INJ 2 MG/ML 2 ML VIAL IV PRN (20:32)
[2025-03-01] MEDS: amLODIPine BESYLATE 5 MG TAB PO SCH (20:37)
[2025-03-01] MEDS ORDERED: FLUTICASONE/SALMETEROL (ADVAIR) 500/50 INH 14 PUFF INH SCH (21:00)
[2025-03-02 05:05] LABS: Basophils # (auto) 0.01 K/uL (0.00-0.20); Basophils % (auto) 0.1 %; Hematocrit (blood only) 40.3 % (37.0-47.0); Hemoglobin 13.2 g/dl (12.0-16.0); Immature Granulocytes # (auto) 0.07 K/uL (0.01-0.20); Immature Granulocytes % (auto) 0.5 %; Lymphocytes # (auto) 0.79 K/uL (1.20-3.40); Mean Corpuscular Hemoglobin 32.9 pg (25.0-34.0); Mean Corpuscular Hgb Conc 32.8 g/dL (32.0-36.0); Mean Corpuscular Volume 100.5 fL (80.0-100.0); Mean Platelet Volume 9.5 fL (9.4-12.4); Monocytes # (auto) 1.13 K/uL (0.11-0.59); Monocytes % (auto) 8.5 %; Neutrophils # (auto) 11.27 K/uL (1.40-6.50); Neutrophils % (auto) 84.9 %; Platelet Count 151 K/uL (130-400); RDW Coefficient of Variation 12.4 % (11.5-14.5); RDW Standard Deviation 45.9 fL (36.4-46.3); Red Blood Count 4.01 M/uL (4.20-5.40); White Blood Count 13.27 K/ul (4.8-10.8)
[2025-03-02 05:21] LABS: BUN Creatinine Ratio 23.2 (10-20); Calcium 8.3 mg/dl (8.6-10.3); Potassium 4.9 mmol/L (3.5-5.1)
--- NOTE | 2025-03-02 07:29 | Critical Care Progress Note ---
Date of Service March 02, 2025 Assessment & Plan (1) Bronchiectasis: (2) Acute on chronic respiratory failure with hypoxemia: (3) HTN (hypertension): (4) Dyslipidemia: (5) Peripheral vascular disease: (6) Tobacco abuse: (7) COPD (chronic obstructive pulmonary disease): Plan PFT 11/23/2024 personally reviewed: Severe obstructive lung dysfunction, insignificant bronchodilator response, air trapping, moderate decrease in DLCO FVC 2.16 L 76%, FEV1 0.86 L 39%, FEV1/FVC 40%, RV 185%, TLC 120%, RV/TLC 155%, DLCO 57% CT chest 10/20/2024 personally reviewed: Centrilobular and paraseptal emphysema appreciated bilaterally Minimal bronchiectasis bilateral lower lobes No significant mediastinal lymphadenopathy -- Peripheral vascular disease S/p left femoral to tibioperoneal bypass by Dr. Arias on 03/01/2025 Monitor H&H Continue monitor for pulses --COPD with emphysema with minimal bilateral lower lobe bronchiectasis On Advair 500 as well as Spiriva at home Patient is actively wheezing, -- Acute on chronic hypoxic respiratory failure On 1 L oxygen with exertion and nightly Currently on 5 L Keep O2 saturation between 90-92% --Hypertension On amlodipine 5 mg at home --Prophylaxis VTE: None GI: None Lines: Right radial, peripheral Diet: Cardiac Plan: In/out: +2.3 L, urine output 1370 There has been some drop in hemoglobin which is most likely postsurgical as well as being +2.3 L. Continue to monitor Continue with nebulized bronchodilators formoterol and budesonide and Incruse inhaler Keep O2 saturation between 90-92% Disposition as per vascular surgery Please note the above document was generated using voice recognition software. It may contain grammatical, syntax or spelling errors.Any formal questions or concerns about the content, text or information contained within the body of this dictation should be directly addressed to the provider for clarification. Admission and Anticipated Discharge Date Admission Date: March 01, 2025 Subjective Patient seen and examined at bedside. No acute distress, no adverse events overnight She was emotional during the examination and was crying. On asking why she was not able to answer clearly Denied any chest pain, shortness of breath is at baseline Did complain of some cramping in the lower abdomen as well as pain in the left leg around the incision site Was able to tolerate breakfast without any issues, no nausea or vomiting today. She was nauseous yesterday Has been afebrile Review of Systems Review of Systems: All systems reviewed & are unremarkable except as noted in Subjective Physical Exam Physical Exam: Constitutional: No acute distress HEENT: EOMI, PERRLA Respiratory system: Decreased air entry bilaterally, no rhonchi, minimal crackles bilateral lower lobes, minimal expiratory wheeze bilaterally, improved from before CVS: S1-S2 positive, no murmurs or gallops Abdomen: Soft, nontender, nondistended, positive bowel sounds x4 Extremities: Feeble pulses bilaterally dorsalis pedis, +2 pulses bilateral radialis, no cyanosis, no edema Neuro: Awake alert oriented x3 Psych: Normal mood and affect G/U: Positive Fagan Left groin wound VAC in place Skin: no rashes, warm and dry Lymphatic: no cervical or axillary lymphadenopathy Results & Data Results & Data Vital Signs (Past 12 Hours) Vital Signs Temp Pulse Pulse Resp BP BP BP 03/02/25 06:00 36.5 C 83 20 137/88 03/02/25 05:00 36.5 C 81 12 149/81 H 03/02/25 04:00 36.5 C 76 12 133/79 03/02/25 03:03 80 9 L 03/02/25 03:00 88 12 136/76 03/02/25 02:00 134/78 03/02/25 02:00 134/78 03/02/25 02:00 134/78 03/02/25 02:00 36.5 C 82 12 134/78 03/02/25 01:00 85 17 130/80 03/02/25 00:00 36.5 C 82 15 136/77 03/01/25 23:39 83 03/01/25 23:00 36.5 C 80 17 127/75 03/01/25 21:59 36.2 C L 85 12 03/01/25 21:40 85 03/01/25 21:00 36.5 C 86 135/81 03/01/25 20:00 36.6 C 83 15 129/75 03/01/25 19:53 78 20 03/01/25 19:41 BP Pulse Ox O2 Del Method O2 Flow Rate 03/02/25 06:00 90 Nasal Cannula 3 03/02/25 05:00 92 Nasal Cannula 3 03/02/25 04:00 148/76 H 94 Nasal Cannula 3 03/02/25 03:03 92 03/02/25 03:00 93 Nasal Cannula 3 03/02/25 02:00 03/02/25 02:00 03/02/25 02:00 03/02/25 02:00 90 Nasal Cannula 3 03/02/25 01:00 92 Nasal Cannula 3 03/02/25 00:00 139/76 90 Nasal Cannula 3 03/01/25 23:39 03/01/25 23:00 150/80 H 90 Nasal Cannula 4 03/01/25 21:59 134/74 92 Oxymask 4 03/01/25 21:40 03/01/25 21:00 143/78 H 90 Oxymask 4 03/01/25 20:00 138/75 92 Oxymask 5 03/01/25 19:53 90 Oxymask 6 03/01/25 19:41 Oxymask Coding Level of Care Code 52852 SUB INP/OBS CARE MIN Diagnoses Bronchiectasis J47.9 Acute on chronic respiratory failure with hypoxemia J96.21 HTN (hypertension) I10 Dyslipidemia E78.5 Peripheral vascular disease I73.9 Tobacco abuse Z72.0 COPD (chronic obstructive pulmonary disease) J44.9
[2025-03-02 08:13] LABS: Magnesium 1.9 mg/dl (1.7-2.4); Phosphorus 4.3 mg/dl (2.5-4.9)
[2025-03-02] MEDS: UMECLIDINIUM BROMIDE 62.5MCG/BLISTER 7 PUFFS/INHALER INH SCH (08:56)
[2025-03-02] MEDS ORDERED: TIOTROPIUM BROMIDE 5 PUFF/90 MCG INH INH SCH (09:00)
--- NOTE | 2025-03-02 12:56 | Surgery Progress Note ---
Date of Service March 02, 2025 Assessment & Plan (1) S/P vascular surgery: Plan: Patient doing extremely well. She does live alone so will plan on rehab. Can go as soon as tomorrow. Admission and Anticipated Discharge Date Admission Date: March 01, 2025 Subjective Patient claims left foot feels much better. No pain in foot Physical Exam Constitutional: WD/WN, vitals as above Respiratory: normal respiratory effort; no respiratory distress Cardiovascular: Rate/Rhythm: regular rate and regular rhythm Vessels: posterior tibial pulses present (excellent left pt doppler) Extremities: normal capillary refill Gastrointestinal (Abdomen): Inspection/Auscultation: abdomen normal to inspection Percussion/Palpation: abdomen soft; abdomen nontender Skin: + incision (dressings intact) Neurologic: CN's II-XI intact bilaterally and moves all extremities Psychiatric: A+Ox3, euthymic affect Results & Data Vital Signs (Past 12 Hours) Vital Signs Temp Pulse Pulse Resp BP BP BP 03/02/25 12:18 03/02/25 12:09 108 H 16 03/02/25 12:00 137/75 03/02/25 11:24 94 H 22 03/02/25 11:03 92 H 18 03/02/25 11:00 146/94 H 03/02/25 10:54 95 H 23 03/02/25 10:30 105 H 20 03/02/25 10:30 131/80 03/02/25 10:00 93 H 21 03/02/25 09:09 93 H 19 03/02/25 09:00 118/65 03/02/25 08:54 98 H 21 03/02/25 08:25 03/02/25 08:17 03/02/25 08:01 118/69 03/02/25 07:51 96 H 21 03/02/25 07:46 94 H 03/02/25 07:45 37 C 03/02/25 07:39 03/02/25 07:30 85 18 03/02/25 07:06 82 15 132/75 03/02/25 06:00 36.5 C 83 20 137/88 03/02/25 05:00 36.5 C 81 12 149/81 H 03/02/25 04:00 36.5 C 76 12 133/79 148/76 H 03/02/25 03:03 80 9 L 03/02/25 03:00 88 12 136/76 03/02/25 02:00 134/78 03/02/25 02:00 134/78 03/02/25 02:00 134/78 03/02/25 02:00 36.5 C 82 12 134/78 03/02/25 01:00 85 17 130/80 Pulse Ox Pulse Ox Pulse Ox Pulse Ox Pulse Ox O2 Del Method O2 Del Method 03/02/25 12:18 90 88 L 80 L 03/02/25 12:09 90 03/02/25 12:00 03/02/25 11:24 91 03/02/25 11:03 90 03/02/25 11:00 03/02/25 10:54 90 03/02/25 10:30 90 03/02/25 10:30 03/02/25 10:00 90 03/02/25 09:09 89 L 03/02/25 09:00 03/02/25 08:54 90 03/02/25 08:25 Nasal Cannula 03/02/25 08:17 Nasal Cannula 03/02/25 08:01 03/02/25 07:51 90 03/02/25 07:46 03/02/25 07:45 03/02/25 07:39 96 Nasal Cannula 03/02/25 07:30 91 Nasal Cannula 03/02/25 07:06 92 Nasal Cannula 03/02/25 06:00 90 Nasal Cannula 03/02/25 05:00 92 Nasal Cannula 03/02/25 04:00 94 Nasal Cannula 03/02/25 03:03 92 03/02/25 03:00 93 Nasal Cannula 03/02/25 02:00 03/02/25 02:00 03/02/25 02:00 03/02/25 02:00 90 Nasal Cannula 03/02/25 01:00 92 Nasal Cannula O2 Flow Rate O2 Flow Rate O2 Flow Rate O2 Flow Rate O2 Flow Rate 03/02/25 12:18 5 3 0 03/02/25 12:09 03/02/25 12:00 03/02/25 11:24 03/02/25 11:03 03/02/25 11:00 03/02/25 10:54 03/02/25 10:30 03/02/25 10:30 03/02/25 10:00 03/02/25 09:09 03/02/25 09:00 03/02/25 08:54 03/02/25 08:25 3 03/02/25 08:17 03/02/25 08:01 03/02/25 07:51 03/02/25 07:46 03/02/25 07:45 03/02/25 07:39 3 03/02/25 07:30 3 03/02/25 07:06 3 03/02/25 06:00 3 03/02/25 05:00 3 03/02/25 04:00 3 03/02/25 03:03 03/02/25 03:00 3 03/02/25 02:00 03/02/25 02:00 03/02/25 02:00 03/02/25 02:00 3 03/02/25 01:00 3
[2025-03-03 08:18] LABS: Basophils # (auto) 0.02 K/uL (0.00-0.20); Basophils % (auto) 0.2 %; Eosinophils # (auto) 0.12 K/uL (0.00-0.50); Eosinophils % (auto) 1.2 %; Hematocrit (blood only) 32.2 % (37.0-47.0); Hemoglobin 10.6 g/dl (12.0-16.0); Immature Granulocytes # (auto) 0.04 K/uL (0.01-0.20); Immature Granulocytes % (auto) 0.4 %; Lymphocytes # (auto) 1.44 K/uL (1.20-3.40); Lymphocytes % (auto) 14.5 %; Mean Corpuscular Hemoglobin 33.1 pg (25.0-34.0); Mean Corpuscular Hgb Conc 32.9 g/dL (32.0-36.0); Mean Corpuscular Volume 100.6 fL (80.0-100.0); Mean Platelet Volume 9.7 fL (9.4-12.4); Monocytes # (auto) 1.01 K/uL (0.11-0.59); Monocytes % (auto) 10.2 %; Neutrophils % (auto) 73.5 %; Platelet Count 117 K/uL (130-400); RDW Coefficient of Variation 12.7 % (11.5-14.5); RDW Standard Deviation 46.5 fL (36.4-46.3); White Blood Count 9.93 K/ul (4.8-10.8)
[2025-03-03 08:39] LABS: BUN Creatinine Ratio 31.7 (10-20); Calcium 8.1 mg/dl (8.6-10.3); Creatinine Clr Calc Pharmacy 91.1 ml/min; Potassium 4.2 mmol/L (3.5-5.1)
[2025-03-03] MEDS ORDERED: MoRPHine SULFATE 4 MG/ML 1 ML CARP\\VIAL IV PRN (09:01)
--- NOTE | 2025-03-03 09:06 | Surgery Progress Note ---
Date of Service March 03, 2025 Assessment & Plan (1) S/P femoral-tibial bypass: Plan: Pt overall doing well POD #2. Pt concerned about constipation related to her medications. No abd pain. Will add colace and miralax. Pt to continue increasing activity as tolerated. Will likely d/c early next week to rehab if placed. Admission and Anticipated Discharge Date Admission Date: March 01, 2025 Subjective 65 yo f POD #1 after LLE fem-TP trunk in situ bypass, seen in f/u today. Pt states pain in LLE incisions, but foot feeling much improved since surgery. No new complaints. Review of Systems Review of Systems: All systems reviewed & are unremarkable except as noted in HPI & below Results & Data Vital Signs (Past 12 Hours) Vital Signs Temp Pulse Resp BP Pulse Ox O2 Del Method O2 Del Method 03/03/25 08:05 36.8 C 92 H 16 105/65 90 Nasal Cannula 03/03/25 07:27 Nasal Cannula 03/03/25 07:13 100 H 18 96 Nasal Cannula 03/02/25 22:00 Room Air O2 Flow Rate 03/03/25 08:05 3 03/03/25 07:27 3 03/03/25 07:13 3 03/02/25 22:00
[2025-03-03] MEDS: DOCUSATE SODIUM 100 MG CAP PO SCH (09:32)
[2025-03-03] MEDS: oxyCODONE/ACETAMINOPHEN 5mg/325mg TAB PO PRN (12:22)
[2025-03-03] MEDS: PANTOprazole 40 MG TAB PO STA (20:06)
[2025-03-04 06:56] LABS: Basophils # (auto) 0.02 K/uL (0.00-0.20); Basophils % (auto) 0.2 %; Eosinophils # (auto) 0.24 K/uL (0.00-0.50); Eosinophils % (auto) 2.8 %; Hematocrit (blood only) 31.4 % (37.0-47.0); Hemoglobin 10.5 g/dl (12.0-16.0); Immature Granulocytes # (auto) 0.13 K/uL (0.01-0.20); Immature Granulocytes % (auto) 1.5 %; Lymphocytes # (auto) 1.63 K/uL (1.20-3.40); Lymphocytes % (auto) 18.8 %; Mean Corpuscular Hemoglobin 33.4 pg (25.0-34.0); Mean Corpuscular Hgb Conc 33.4 g/dL (32.0-36.0); Mean Platelet Volume 9.8 fL (9.4-12.4); Monocytes # (auto) 0.87 K/uL (0.11-0.59); Monocytes % (auto) 10.1 %; Neutrophils # (auto) 5.76 K/uL (1.40-6.50); Neutrophils % (auto) 66.6 %; Platelet Count 115 K/uL (130-400); RDW Coefficient of Variation 12.5 % (11.5-14.5); RDW Standard Deviation 45.9 fL (36.4-46.3); Red Blood Count 3.14 M/uL (4.20-5.40); White Blood Count 8.65 K/ul (4.8-10.8)
[2025-03-04 07:03] VITALS: BP 115/69; TEMP 98.1
[2025-03-04 07:20] LABS: Calcium 8.1 mg/dl (8.6-10.3); Creatinine Clr Calc Pharmacy 86.8 ml/min; Potassium 4.2 mmol/L (3.5-5.1)
[2025-03-04 07:21] VITALS: PULSE 87; RESP 17
[2025-03-04] MEDS: PANTOprazole 40 MG TAB PO SCH (09:00)
[2025-03-04] MEDS: LORATADINE 10 MG TAB PO PRN (09:00)
[2025-03-04] MEDS ORDERED: POLYETHYLENE (MIRALAX) 17 GM PACK PO PRN (09:00)
--- NOTE | 2025-03-04 09:04 | Surgery Progress Note ---
Date of Service March 04, 2025 Assessment & Plan (1) S/P femoral-tibial bypass: Plan: Patient doing well after left lower extremity bypass. Now on oral pain pills only. Can go to rehab when bed available. Admission and Anticipated Discharge Date Admission Date: March 01, 2025 Subjective 65 yo f post op after LLE fem-TP trunk in situ bypass. Pt states pain in LLE incisions much better. On oral pain pills only. She is getting up on her own and ambulating with a walker with min assistance. Denies foot pain. Physical Exam Constitutional: WD/WN, vitals as above Respiratory: normal respiratory effort; no respiratory distress Cardiovascular: Rate/Rhythm: regular rate and regular rhythm Vessels: posterior tibial pulses present (excellent left pt doppler) Extremities: normal capillary refill Skin: + incision (pevena intact, rest of incis ion dry and clean) Neurologic: CN's II-XI intact bilaterally and moves all extremities Psychiatric: A+Ox3, euthymic affect Results & Data Vital Signs (Past 12 Hours) Vital Signs Temp Pulse Resp BP Pulse Ox O2 Del Method O2 Flow Rate 03/04/25 07:20 87 17 91 Nasal Cannula 4 03/04/25 07:02 36.7 C 84 18 115/69 93 Room Air
[2025-03-04 11:18] VITALS: O2SAT 91
--- NOTE | 2025-03-07 12:52 | Discharge Summary ---
Date of Service March 07, 2025 Admission HPI Per Admitting Provider Date of Service February 10, 2025 History of Present Illness Primary Care Provider: Vivian Suarez DO Name: JOSE MAYNARD Patient Number: [id number] : [id number] Date of Service: 02/06/2025 Chief Complaint: _Follow-up for PAD HPI: _Ms. Maynard is an elderly female presents to Dr. Arias's vascular surgery clinic today for an office visit to discuss her recent ultrasound findings. Patient was initially seen by Dr. Arias few weeks ago for abdominal aortic aneurysm, and was noted to have symptoms concerning for claudication and rest pain of her left lower extremity. She was sent for an ultrasound of her leg, which demonstrates severe peripheral arterial disease with a left leg BREANNA of 0.2. Upon questioning, patient does confirm that she is only able to walk 10-15 steps before stopping due to pain in her left calf and numbness in her left foot. She feels sometimes that she is almost dragging her left foot, and limps when she is ambulating. She has pain in her left lower leg and foot when she is laying in bed at night, which is improved when she sits with her legs over the side of the bed or stands up on her legs to walk around. She also states to having some low back problems, and occasionally gets a sharp pain in her left lower back and buttock which sometimes radiates down her leg, but this is different than what she experiences in her lower legs and foot typically. She denies any nonhealing wounds or ulcerations of her feet. When she is at the grocery store, she does have a cart and tries to lean on it somewhat, but this d oes not improve her left calf or foot problems. Her bilateral lower extremity arterial ultrasound performed prior to today's appointment demonstrates severe peripheral arterial disease, worse in the left leg than the right. Her right leg BREANNA 0.53, her left is 0.28. Emotional Assessment (PHQ-2) (Data Documented on:02/02/2025 08:55) [place] down or depressed over last 2 weeks? 0 - Not at All Little interest in doing things? 0 - Not at All PHQ-2 Score: 0 - Emotional health assessment NEGATIVE Current Home Meds: (Last Updated 02/02 08:54) albuterol (Albuterol (Eqv-ProAir HFA) 90 mcg/inh inhalation aerosol) 90 mcg inhaled q6h PRN: as needed for shortness of breath or wheezing amLODIPine (amLODIPine 5 mg oral tablet) 5 mg PO Daily fluticasone-salmeterol (Advair Diskus 500 mcg-50 mcg) 1 puff PO bid guaifenesin-pseudoephedrine (Mucinex D Max Strength 120 mg-1200 mg oral tablet, extended release) 1 tab PO q12h PRN: congestion ibuprofen 800 mg PO Daily loratadine (Claritin 10 mg oral tablet) 10 mg PO Daily PRN: as needed for allergy symptoms tiotropium (Spiriva 18 mcg inhalation capsule) 18 mcg inhaled Daily Allergies and Sensitivities: escitalopram(Somnolence) Latex(rash) statins(muscle spasms, malaise) aspirin(upset stomach and bloody stools) Past Medical History: Problems: Polyp of colon Hematuria Erythrocytosis Factor V deficiency Requires oxygen therapy Statin intolerance Infrarenal abdominal aortic aneurysm, without rupture HTN, goal below 130/80 HLD (hyperlipidemia) History of CVA (cerebrovascular accident) BRANT (generalized anxiety disorder) Depression COPD with emphysema (atherosclerosis) Body mass index [BMI] 31.0-31.9, adult GERD without esophagitis Vitamin D deficiency Tobacco user Pulmonary nodule OBJECTIVE Vitals: Last Updated 02/06/25 13:59 Date Temp BP Location Pulse RR SpO2 Pain 02/06/25 0 02/06/25 138/78 Right Arm 88 88 02/02/25 10 Vital Signs are the last 3 documented. No Orthostatic Data Available Height and Weight: Last Updated 12/22/24 09:04 Date BMI Wt(kg) Wt(lb) Method Ht(cm) (ft-in) Method 12/22/24 80.9 178 Standing Scale 11/09/24 31.89 79 174 Standing Scale 157.4 5-2 Patient stated 09/22/24 31.69 78.5 173 Standing Scale 157.4 5-2 Standing Heights and Weights are the last 3 documented. Physical Exam Constitutional: In general patient is a healthy-appearing well-nourished well- developed early female no distress. She is alert and oriented with any focal deficits. Her bilateral lower extremities demonstrate nonpalpable distal pulses, but she does have brisk capillary fill on the right and 4 cm on the left. Her left foot is ruborous. Her lungs are clear. Her heart has a RRR. Her abdomen is benign. ASSESSMENT: _ PLAN: _ 1 ) _severe peripheral arterial disease with rest pain left leg Patient does have severe peripheral arterial disease in her bilateral lower extremities, worse in the left leg than the right. She does have symptoms consistent with short distance claudication and rest pain of the left foot. Due to her symptoms and the severity of her ultrasound findings, we recommend that she undergo a left lower extremity arteriogram with possible intervention later this week. The procedure risks benefits and alternatives were discussed with the patient by myself at Dr. Arias's request. Patient expressed understanding and agreement to proceed. This will occur within the next week or so. She is vies call any questions or concerns. Thank you for letting us participate in the care of this patient. I have personally spent_36__ minutes performing qbxp-[id number] and kec-qref-bh-face activities on this date of service.Time does not include separately reported services. Activities Include: _x_ review of the medical record _x_ obtaining a history x__ physical exam/evaluation __ review labs _x_ review radiology reports _x_ counseling/educating patient/family/caregiver __ discussion/referral to other healthcare professional x__ documenting care in the medical record __ independent interpretation of results x__ communication of results to patient/family/caregiver _x_ coordination of care Signature Line Electronic Signature on File CC: Vivian Suarez, DO [address] [place] [address] Electronically Reviewed/Signed by: Ada Jamil PA-C Author Signature Dt/Tm:02/06/2025 02:44 PM [facility] [place] [address], [address] [place] [address] LM Result Type:HVI Outpt Note Date of Service:February 06, 2025 14:38 EDT Authorization Status:Final Author or Import Date:DAVID Jamil Lynn on February 06, 2025 14:44 EDT Verified By:DAVID Jamil Lynn on February 06, 2025 14:44 EDT Encounter info:[id number], [place] [address], Clinic, 02/06/2025 - 02/06/2025 Allergies Allergy/AdvReac Type Severity Reaction Status Date / Time escitalopram Allergy Severe Lethargy Verified 02/10/25 06:05 latex Allergy Mild Verified 02/10/25 06:05 aspirin AdvReac Intermediate Abdominal Verified 02/10/25 06:05 Pain Vxigobj-PND-ClE Reductase AdvReac Mild Verified 02/10/25 06:05 Inhibitor Home Medications Medication Instructions Recorded Confirmed Type albuterol sulfate 90 mcg/actuation 1 inh inhalation Q6H PRN shortness 04/08/24 02/10/25 Rx aerosol inhaler of breath or wheezing #6.7 grams fluticasone propionate 50 2 spray NA DAILY #16 grams 04/08/24 02/10/25 Rx mcg/actuation nasal spray,suspension loratadine 10 mg tablet (Wal-itin) 10 mg PO QAM #30 tabs 04/08/24 02/10/25 Rx Oxygen Home #1 ea 10/13/24 02/10/25 Rx fluticasone 500 mcg-salmeterol 50 1 inh inhalation BID #60 ea 11/14/24 02/10/25 Rx mcg/dose blistr powdr for inhalation (Advair Diskus) amlodipine 5 mg tablet (Norvasc) 5 mg PO HS 02/04/25 02/10/25 History ibuprofen 200 mg tablet 200 mg PO Q6H PRN Pain 02/04/25 02/10/25 History tiotropium bromide 18 mcg capsule 1 cap inhalation DAILY 02/04/25 02/10/25 History with inhalation device Past Med/Surg History Problem List Claudication of left lower extremity (Acute) Left leg pain (Acute) Microscopic hematuria Bronchiectasis Pulmonary nodule Acute hypoxic respiratory failure COPD exacerbation COPD with hypoxia (Acute) Medical History Tobacco abuse Hx of ischemic right MCA stroke HTN (hypertension) Dyslipidemia COPD (chronic obstructive pulmonary disease) Surgical History S/P endometrial ablation H/O tubal ligation History of dental surgery Family History Other Diabetes Hypertension Social History Smoking Status: Current every day smoker Tobacco Type: Cigarettes packs per day: 1; Do You Dip or Chew Tobacco: No; Hx Alcohol Use: Yes Alcohol Intake Frequency: Monthly or Less Hx Substance Use: No Preferred Language: Angolan Communication Ability: Effective Evening Sitter Required: No Beliefs That Will Affect Care: None marital status: Single Current Living Situation: Alone Feels Safe at Home: Yes Assistive Devices: None Results & Data Vital Signs (Past 12 Hours) Vital Signs Temp Pulse Resp BP Pulse Ox O2 Del Method O2 Flow Rate 02/10/25 06:28 36.6 C 82 24 146/82 H 94 Nasal Cannula 2 Signed By: <Electronically signed by Russel Arias MD> 02/10/25 0751 Created: 02/10/25 0750 The status of this report is Signed. Draft = Not yet reviewed or approved by Medical Physician. Signed = Reviewed and approved by Medical Physician. Admission Exam Per Admitting Provider Physical Exam Constitutional: In general patient is a healthy-appearing well-nourished well- developed early female no distress. She is alert and oriented with any focal deficits. Her bilateral lower extremities demonstrate nonpalpable distal pulses, but she does have brisk capillary fill on the right and 4 cm on the left. Her left foot is ruborous. Her lungs are clear. Her heart has a RRR. Her abdomen is benign. Principal Diagnosis 1. s/p LLE fem- TPT in situ bypass 2. Severe PAD LLE Discharge Exam Constitutional WD/WN, vitals as above Respiratory normal respiratory effort; no respiratory distress Cardiovascular Rate/Rhythm: regular rate and regular rhythm Vessels: posterior tibial pulses present (excellent left pt doppler) Extremities: normal capillary refill Gastrointestinal (Abdomen) Inspection/Auscultation: abdomen normal to inspection Percussion/Palpation: abdomen soft; abdomen nontender Skin + incision (pevena intact, rest of incision dry and clean) Neurologic CN's II-XI intact bilaterally and moves all extremities Psychiatric A+Ox3, euthymic affect Discharge Data Allergies Allergy/AdvReac Type Severity Reaction Status Date / Time escitalopram Allergy Severe Lethargy Verified 03/01/25 06:52 latex Allergy Mild localized Verified 03/01/25 06:52 redness aspirin AdvReac Intermediate Abdominal Verified 03/01/25 06:52 Pain Ktijewu-GEZ-OgF Reductase AdvReac Mild Muscle Pain Verified 03/01/25 06:52 Inhibitor Consultations 03/01/25 18:00 Consult Cigarette Maker Routine Procedures Performed Operation Date: 03/01/25 08:00 Actual Procedures p Left Leg Femoral to Tibioperoneal Artery Bypass(Left) - Russel Arias MD Ordered Studies 03/01/25 07:24 EV angio LE LT Routine Hospital Course (1) S/P femoral-tibial bypass: Patient doing well after left lower extremity bypass. Now on oral pain pills only. Can go to rehab when bed available. Total Time Total Time Spent Total Time Spent (In Minutes): 0 Discharge Plan Discharge Items Patient Disposition: Transfer Inpatient Rehab Fac Reason For Visit: Left Superficial Femoral Artery and Popliteal Rama Discharge Diagnosis: left superficial femoral and popliteal artery occlusion, post bypass Activity: Per Instructions section Lifting: Gradually increase as tolerated Bathing Comment: may shower after prevena dressing removed Exercise/Sports: Gradually increase as tolerated Weightbearing: Full weightbearing Non-emergency contact: Surgeon Call non-emergency contact if: your temperature is above 101.5, your wound has increased redness, your wound has increased drainage and your wound pain has increased Follow-up/Referrals: Vivian Suarez, DO [Primary Care Provider] - Diet: Heart Healthy Addtl Attending Provider Instructions: ACTIVITY RECOMMENDATIONS: Once suction of dressing no longer working, may remove the prevena dressing and dispose of the whole dressing May shower at that time. Do not soak wounds under water. May place a dressing on wounds if there is any drainage. SPECIAL CARE INSTRUCTIONS: Call your doctor if: * Temperature above 101 degrees * Pain not relieved by pain medicine ordered * There is increased drainage or redness from any incision * You have any unanswered questions or concerns. Call [phone] to schedule a follow up appointment if one not already scheduled. Pending Studies at Discharge: No Stand-Alone Forms: My [facility] Skilled Items Patient informed of condition?: Yes DNR: No Discharge Level of Care: Acute rehab Communicable Disease: No Discharge Prognosis: Improving Lines: None Urinary Catheter: No Medications and DC Order Prescriptions: New oxycodone-acetaminophen [Percocet] 5-325 mg Tablet 1 - 2 tab PO Q4H PRN (Reason: pain) Qty: 30 0RF Continued fluticasone propion-salmeterol [Advair Diskus] 500-50 mcg/dose blister with device 1 inh inhalation BID Qty: 60 3RF (DME) Oxygen Home Liters Per Minute See Rx Instructions .MEDSUPPLY Qty: 1 0RF Rx Instructions: Oxygen 1 L/min with activity and nightly, needs portable oxygen concentrator, DME AHP albuterol sulfate 90 mcg/actuation HFA aerosol inhaler 1 inh inhalation Q6H PRN (Reason: shortness of breath or wheezing) Qty: 6.7 0RF ibuprofen 200 mg Tablet 200 mg PO Q6H PRN (Reason: Pain) tiotropium bromide 18 mcg capsule, w/inhalation device 1 cap INHALATION QAM amlodipine [Norvasc] 5 mg tablet 5 mg PO HS fluticasone propionate 50 mcg/actuation spray,suspension 2 spray NA DAILY PRN (Reason: Congestion) loratadine [Wal-itin] 10 mg tablet 10 mg PO QAM PRN (Reason: Allergy Symptoms) Discharge Orders: Discharge Order (Routine); Ordered 03/04/25 Ordered By: Russel Arias Admission Data Admit Date/Time: 03/01/25 07:37 Attending Provider: Russel Arias Admit Provider: Russel Arias Primary Care Provider: Vivian Suarez Other Providers: [facility]; Doreen Sheikh Other Interventions: Discharge Summary Assessment (RN) Last Done: 03/04/25 11:12
== END 2025-03-04 15:10 | DRG 252 ==
LOC: ASU 06:34 → 1E 07:37 → 3W 03-02 15:52

== ENCOUNTER 2025-04-10 08:25 | Inpatient (IN) ==
--- NOTE | 2025-04-07 09:49 | Anesthesiology Consultation ---
Date of Service April 07, 2025 Assessment & Plan (1) Encounter for pre-operative examination: - check coags STAT am DOS. - surgeon ordered coags, currently coag results will be more than 60 days from 04/10 surgery date-will order for DOS. Dr. Stanton advised he feels EKG (will be 3 days past 1 year) does not need updated unless patient reports cardiac symptoms to anesthesiologist DOS. - discharge summary 03/07/25 [facility]: "...severe peripheral arterial disease in her bilateral lower extremities, worse in the left leg than the right...consistent with short distance claudication and rest pain of the left foot. Due to her symptoms and the severity of her ultrasound findings, we recommend that she undergo a left lower extremity arteriogram with possible intervention later this week...s/p femoral-tibial bypass..." - s/p Left Leg Femoral to Posterior Tibial Artery Bypass 03/01/2525 Grade 1 view, MAC 3, ETT 7.0. - Per bolt man on 04/07/25: No known infectious disease contacts, current infectious disease symptoms in past 10 days or COVID positive test result in the past 30 days. Chart Review Chart Review: Acceptable Risk for Surgery and Patient NOT seen in Pre Admission Testing History Surgery Operation Date: 04/10/25 09:50 Proposed Procedures p Left Leg Wound Debridement - Russel Arias MD Height/Weight Height: 5 ft 1 in Weight: 77.111 kg Allergies Allergy/AdvReac Type Severity Reaction Status Date / Time latex Allergy Mild Localized Verified 04/07/25 08:26 Redness escitalopram AdvReac Severe Lethargy Verified 04/07/25 08:26 aspirin AdvReac Intermediate Abdominal Verified 04/07/25 08:26 Pain Lfjdkmo-WKO-IoT Reductase AdvReac Intermediate Muscle Pain Verified 04/07/25 08:26 Inhibitor Medications Home Medications Medication Instructions Recorded Confirmed Last Taken fluticasone 500 mcg-salmeterol 50 1 inh inhalation BID #60 ea 11/14/24 04/07/25 02/28/25 23:59 mcg/dose blistr powdr for inhalation (Advair Diskus) amlodipine 5 mg tablet (Norvasc) 5 mg PO HS 02/04/25 04/07/25 02/28/25 21:00 ibuprofen 200 mg tablet 200 mg PO Q6H PRN Pain 04/03/2604/07/25 02/28/25 22:00 tiotropium bromide 18 mcg capsule 1 cap inhalation QAM 02/04/25 04/07/25 02/28/25 23:59 with inhalation device Oxygen Home #1 ea 02/16/25 Unknown loratadine 10 mg tablet (Claritin) 10 mg PO QAM PRN Allergy Symptoms 02/16/25 04/07/25 Unknown albuterol sulfate 90 mcg/actuation 1 inh inhalation Q6H PRN Shortness 04/07/25 04/07/25 Unknown aerosol inhaler Of Breath Or Wheezing amoxicillin 875 mg-potassium 1 tab PO BID 04/07/25 04/07/25 Unknown clavulanate 125 mg tablet cephalexin 500 mg capsule 500 mg PO QID 04/07/25 04/07/25 Unknown oxycodone-acetaminophen 5 mg-325 1 - 2 tab PO Q4H PRN Pain 04/07/25 04/07/25 Unknown mg tablet (Percocet) sulfamethoxazole 500 mg tablet 500 mg PO BID 04/07/25 04/07/25 Unknown Past Medical History Medical History (Updated 04/07/25 @ 09:37 by Deedee Del Valle PA-C) AAA (abdominal aortic aneurysm) 3 cm infrarenal Chronic cough COPD Claustrophobia severe COPD (chronic obstructive pulmonary disease) uses res inh "off and on" Dyslipidemia Factor 5 Leiden mutation, heterozygous BRANT (generalized anxiety disorder) cannot tolerate meds for this, manages on own History of COVID-20 May 2022 HTN (hypertension) Hx of hematuria pt denies at this time Hx of ischemic right MCA stroke Oct 2015 > does have slight reading difficulty since then, possibly related to Factor 5 dx shortly after Leg wound, left s/p femoral-tibial bypass - reason for procedure 04/10/25 On home oxygen therapy 1.5-2.0 LPM at HS PONV (postoperative nausea and vomiting) Pulmonary nodule Tobacco abuse Past Family History Family History Other Diabetes Hypertension Past Surgical History Surgical History (Updated 04/07/25 @ 09:37 by Deedee Del Valle PA-C) H/O tubal ligation History of colonoscopy History of dental surgery History of tooth extraction Upper/Lower Dentures - only wears upper S/P endometrial ablation Status post femorotibial bypass (03/01/25) Social History Smoking Status: Current every day smoker Smoking cigarettes per day: 1 pack Do You Dip or Chew Tobacco: No Hx Alcohol Use: Yes Alcohol type: hard liquor alcohol intake frequency: a few times a month Hx Substance Use: No substance use type: does not use Lab Results Anesthesia Preop Results Results Anesthesia Widget: WBC 8.65 K/ul (4.8-10.8) 03/04/25 Hgb 10.5 g/dl (12.0-16.0) L 03/04/25 Hct 31.4 % (37.0-47.0) L 03/04/25 Plt 115 K/uL (130-400) L 03/04/25 Na 136 mmol/L (136-145) 03/04/25 K 4.2 mmol/L (3.5-5.1) 03/04/25 Cl 102 mmol/L (98-107) 03/04/25 CO2 31 mmol/L (21-32) 03/04/25 BUN 12 mg/dl (6-23) 03/04/25 Creat 0.63 mg/dl (0.6-1.2) 03/04/25 Glucose Level 103 mg/dl (70-99(Fasting)) H 03/04/25 POC Glucose 173 mg/dl (70-99) H 03/01/25 Blood Type A Positive 03/01/25 Antibody Screen NEGATIVE 03/01/25 Testing Electrocardiogram Date: 04/07/24 NSR, rate 95 bpm Cannot rule out anterior infarct, age undetermined Other Testing Abdomen pelvis CT 10/24/24 1. No urinary calculi, hydronephrosis or upper tract urothelial lesions. 2. Mild bladder wall thickening, a nonspecific finding. No discrete bladder lesion although bladder incompletely opacified. 3. 3 cm infrarenal abdominal aortic aneurysm. 4. No acute process within the abdomen or pelvis. 5. Colonic diverticulosis. No evidence for acute diverticulitis. Chest CT 10/20/24 Mild centrilobular emphysema changes seen in both lungs. No focal areas of consolidation. No pulmonary nodules are seen. Calcified right axillary lymph node seen.
--- NOTE | 2025-04-10 07:44 | History & Physical Report ---
Date of Service April 10, 2025 History of Present Illness Primary Care Provider: Vivian Suarez DO Name: JOSE SUN Patient Number: [id number] : [id number] Date of Service: 04/06/2025 Chief Complaint: _Follow-up for left leg bypass HPI: _Ms. sun is an elderly female who presents to Dr. Arias's vascular surgery clinic today for a 1 week follow-up visit regarding her left leg femoral to posterior tibial artery in situ and composite reverse saphenous vein bypass, which occurred about 5 weeks ago at [facility]. She was seen for her initial follow-up visit and found to have very macerated wound bed, likely due to the Vaseline gauze dressings that were being placed. She was then seen last week for further evaluation and removal of rey, and her wound edges were noted to be severely necrotic with slough in the wound bed. At that time there was not significant periwound erythema, but she was started on Augmentin. Patient states that she has been having some increasing pain in her left leg surgical wound since her last visit here. She states she has been checking her temperature at home and has not been febrile. She states that she feels that her wound is looking slightly worse. She denies nausea vomiting or other systemic illness. Current Home Meds: (Last Updated 04/06 15:30) albuterol (Albuterol (Eqv-ProAir HFA) 90 mcg/inh inhalation aerosol) 90 mcg inhaled q6h PRN: as needed for shortness of breath or wheezing amLODIPine (amLODIPine 5 mg oral tablet) 5 mg PO Daily amoxicillin-clavulanate (Augmentin 875 mg-125 mg oral tablet) 1 tab PO q12h cephalexin (Keflex 500 mg oral capsule) 500 mg PO qid fluticasone-salmeterol (Advair Diskus 500 mcg-50 mcg) 1 puff PO bid guaifenesin-pseudoephedrine (Mucinex D Max Strength 120 mg-1200 mg oral tablet, extended release) 1 tab PO q12h PRN: congestion ibuprofen 800 mg PO Daily loratadine (Claritin 10 mg oral tablet) 10 mg PO Daily PRN: as needed for allergy symptoms nystatin topical (nystatin 100,000 units/g topical powder) 1 appl topical bid rivaroxaban (Xarelto 2.5 mg oral tablet) 2.5 mg PO bid sulfamethoxazole-trimethoprim (Bactrim DS 800 mg-160 mg oral tablet) 1 tab PO bid tiotropium (Spiriva 18 mcg inhalation capsule) 18 mcg inhaled Daily Allergies and Sensitivities: escitalopram(Somnolence) Latex(rash) statins(muscle spasms, malaise) aspirin(upset stomach and bloody stools) Past Medical History: Problems: Wound infection after surgery Tobacco user S/P femoral-tibial bypass HTN, goal below 130/80 HLD (hyperlipidemia) History of CVA (cerebrovascular accident) BRANT (generalized anxiety disorder) (atherosclerosis) COPD with emphysema Polyp of colon Hematuria Erythrocytosis Factor V deficiency Requires oxygen therapy Statin intolerance Infrarenal abdominal aortic aneurysm, without rupture Depression Body mass index [BMI] 31.0-31.9, adult GERD without esophagitis Vitamin D deficiency Pulmonary nodule OBJECTIVE Vitals: Last Updated 04/06/25 14:59 Date Temp BP Location Pulse RR SpO2 Pain 04/06/25 37.4 120/74 Left Arm 101 93 03/30/25 100/78 Left Arm 101 93 03/30/25 0 Vital Signs are the last 3 documented. No Orthostatic Data Available Height and Weight: Last Updated 03/24/25 09:43 Date BMI Wt(kg) Wt(lb) Method Ht(cm) (ft-in) Method 03/24/25 78.4 172 Standing Scale 03/22/25 78 172 Standing Scale 12/22/24 80.9 178 Standing Scale Heights and Weights are the last 3 documented. Physical Exam Constitutional: In general patient is a healthy-appearing well-nourished well- developed elderly female in no distress. Her lungs are clear. Her heart has a regular rate and rhythm. Her left groin surgical wound is well-healed at this point. There is no further erythema there, and her previous fungal type rash has resolved. Her lower leg wound has worsening tissue necrosis at the edges and increased angry erythema and warmth. There is slough in the wound beds as well as further tissue necrosis. Her posterior tibial Doppler pulse is excellent. Her entire lower leg is mildly erythematous as well. ASSESSMENT: _ PLAN: _ 1 ) _status post left leg femoral to posterior tibial artery in situ composite reverse saphenous vein bypass, wound infection While her bypass appears to remain patent by physical exam, patient does appear to have a wound infection in the lower leg wound. This appears to be more of a superficial tissue infection, but there is significant cellulitis and tissue necrosis. After discussion with Dr. Arias, he recommends that patient undergo surgical debridement of this area in the OR in a few days. We will have her stop the Augmentin after start taking Keflex and Bactrim for improved coverage. While she does not have signs of sepsis in the office today, she was advised to go to the emergency department if she develops a fever over 100 degrees, or has any nausea vomiting or increased pain of her lower extremity. She can also call our office if she has any further questions. The surgical debridement of her left lower extremity procedure was discussed at length with the patient by myself. The risks of the surgery benefits and alternatives were also discussed with the patient by myself at Dr. Arias's request. Patient expressed understanding and agreement to proceed. This should occur in the OR on Thursday. Thank you for letting us participate in the care of this patient. Signature Line Electronic Signature on File CC: Vivian Suarez, DO [address] [facility] [id number] Electronically Reviewed/Signed by: Ada Jamil PA-C Author Signature Dt/Tm:04/06/2025 04:00 PM [facility] [address] [facility] [place]. [id number] LM Result Type: HVI Outpt Note Date of Service: April 06, 2025 15:52 EDT Authorization Status: Final Author or Import Date: DAVID Jamil Lynn on April 06, 2025 16:00 EDT Verified By: DAVID Jamil Lynn on April 06, 2025 16:00 EDT Encounter info: [id number], [place] [address], [facility], 04/06/2025 - 04/06/2025 Allergies Allergy/AdvReac Type Severity Reaction Status Date / Time latex Allergy Mild Localized Verified 04/07/25 08:26 Redness escitalopram AdvReac Severe Lethargy Verified 04/07/25 08:26 aspirin AdvReac Intermediate Abdominal Verified 04/07/25 08:26 Pain Fxmvnsn-HSH-FoR Reductase AdvReac Intermediate Muscle Pain Verified 04/07/25 08:26 Inhibitor Home Medications Medication Instructions Recorded Confirmed Type fluticasone 500 mcg-salmeterol 50 1 inh inhalation BID #60 ea 11/14/24 04/07/25 Rx mcg/dose blistr powdr for inhalation (Advair Diskus) amlodipine 5 mg tablet (Norvasc) 5 mg PO HS 02/04/25 04/07/25 History ibuprofen 200 mg tablet 200 mg PO Q6H PRN Pain 02/04/25 04/07/25 History tiotropium bromide 18 mcg capsule 1 cap inhalation QAM 02/04/25 04/07/25 History with inhalation device Oxygen Home #1 ea 02/16/25 Rx loratadine 10 mg tablet (Claritin) 10 mg PO QAM PRN Allergy Symptoms 02/16/25 04/07/25 History albuterol sulfate 90 mcg/actuation 1 inh inhalation Q6H PRN Shortness 04/07/25 04/07/25 History aerosol inhaler Of Breath Or Wheezing amoxicillin 875 mg-potassium 1 tab PO BID 04/07/25 04/07/25 History clavulanate 125 mg tablet cephalexin 500 mg capsule 500 mg PO QID 04/07/25 04/07/25 History oxycodone-acetaminophen 5 mg-325 1 - 2 tab PO Q4H PRN Pain 04/07/25 04/07/25 History mg tablet (Percocet) sulfamethoxazole 500 mg tablet 500 mg PO BID 04/07/25 04/07/25 History Past Med/Surg History Problem List (Updated 04/07/25 @ 09:37 by Deedee Del Valle PA-C) Peripheral vascular disease Microscopic hematuria Bronchiectasis Pulmonary nodule COPD with hypoxia (Acute) Medical History AAA (abdominal aortic aneurysm) 3 cm infrarenal Chronic cough COPD Claustrophobia severe COPD (chronic obstructive pulmonary disease) uses res inh "off and on" Dyslipidemia Factor 5 Leiden mutation, heterozygous BRANT (generalized anxiety disorder) cannot tolerate meds for this, manages on own History of COVID-20 May 2022 HTN (hypertension) Hx of hematuria pt denies at this time Hx of ischemic right MCA stroke Oct 2015 > does have slight reading difficulty since then, possibly related to Factor 5 dx shortly after Leg wound, left s/p femoral-tibial bypass - reason for procedure 04/10/25 On home oxygen therapy 1.5-2.0 LPM at HS PONV (postoperative nausea and vomiting) Pulmonary nodule Tobacco abuse Surgical History H/O tubal ligation History of colonoscopy History of dental surgery History of tooth extraction Upper/Lower Dentures - only wears upper S/P endometrial ablation Status post femorotibial bypass (03/01/25) Family History Other Diabetes Hypertension Social History Smoking Status: Current every day smoker Tobacco Type: Cigarettes packs per day: 1; Cigarettes Per Day: 1 pack; Second Hand Exposure: No; Do You Dip or Chew Tobacco: No; Tobacco Cessation Education Requested by Patient: No Hx Alcohol Use: Yes Alcohol type: hard liquor Alcohol Intake Frequency: Monthly or Less Hx Substance Use: No Preferred Language: Kazakh Communication Ability: Effective 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
--- NOTE | 2025-04-10 07:44 | History & Physical Bridge Note ---
Date of Service April 10, 2025 History & Physical Bridge Note I have examined the patient, reviewed the History & Physical and in the interval since the performance of the History & Physical I have noted the following changes of clinical significance: no changes noted
[2025-04-10] MEDS ORDERED: ONDANSETRON INJ 2 MG/ML 2 ML VIAL IV PRN (08:45)
[2025-04-10] MEDS ORDERED: ePHEDrine sulfate 50 MG/ML AMP IV PRN (08:45)
[2025-04-10] MEDS ORDERED: PROMETHAZINE HCL 6.25 MG in SODIUM CHLORIDE 0.9% 50 ML IV PRN (08:45)
[2025-04-10] MEDS ORDERED: ATROPINE SULFATE 0.1 MG/ML 10ML SYR IV PRN (08:45)
[2025-04-10 09:00] LABS: BUN Creatinine Ratio 22.1 (10-20); Calcium 9.2 mg/dl (8.6-10.3); Creatinine Clr Calc Pharmacy 55.5 ml/min; Potassium 4.4 mmol/L (3.5-5.1)
[2025-04-10 09:12] LABS: Partial Thromboplastin Ratio 1.1; Partial Thromboplastin Time 30 Seconds (21-31); Prothrombin Time 10.8 Seconds (9.0-12.0)
[2025-04-10] MEDS: SODIUM CHLORIDE 0.9% 1,000 ML IV SCH ×2 (09:20→13:54)
[2025-04-10] MEDS ORDERED: PROPOFOL IV EMULSION 10 MG/ML 20 ML VIAL IV ONE (09:35)
[2025-04-10] MEDS ORDERED: KETAMINE HCL 10MG/ML SYR ONE (09:35)
[2025-04-10] MEDS ORDERED: fentaNYL citrate PF 100 MCG/2 ML VIAL ONE (09:35)
[2025-04-10] MEDS ORDERED: LIDOCAINE 2% 2 ML VIAL/AMP(20MG/ML) INFIL ONE (09:35)
[2025-04-10] MEDS ORDERED: ONDANSETRON INJ 2 MG/ML 2 ML VIAL ONE (09:35)
[2025-04-10] MEDS ORDERED: MIDAZOLAM HCL 1 MG/ML 2ML VIAL ONE (09:35)
[2025-04-10] MEDS: ceFAZolin 2000MG 2,000 MG/15 ML SYR IV SCH (09:51)
[2025-04-10] MEDS ORDERED: PHENYLEPHRINE 100MCG/ML 5ML SYR ONE (10:07)
--- NOTE | 2025-04-10 11:08 | Post Operative Brief Note ---
Immediate Post Op Note Date of Surgery April 10, 2025 Pre & Post Diagnosis Operation Date: 04/10/25 09:50 Pre-Op Diagnosis: Left Lower Extremity Wound Infection Post-Op Diagnosis: Left Lower Extremity Wound Infection I identified the patient and participated in the time-out.: Yes Procedure Operation Date: 04/10/25 09:50 Actual Procedures p Left Leg Wound Debridement(Left), Application of wound vac 40x3 - Russel Arias MD Surgeon Russel Arias MD [employer],PAC Estimated Blood Loss 20 Findings Consistent with Post-Op Diagnosis Anesthesia Type General Complications none Disposition Accompanied Patient To Recovery: No
[2025-04-10] MEDS: fentaNYL citrate PF 100 MCG/2 ML VIAL IV PRN (11:18)
--- NOTE | 2025-04-10 12:51 | Anesthesiology Progress Note ---
Date of Service April 10, 2025 Anesthesia Post Procedure Vital Signs Vital Signs: Temp Pulse Pulse Resp BP Pulse Ox O2 Del Method 04/10/25 12:40 84 16 118/78 94 Nasal Cannula 04/10/25 12:25 79 15 126/74 93 Nasal Cannula 04/10/25 12:10 81 14 128/78 92 Nasal Cannula 04/10/25 11:55 36.4 C L 78 20 104/61 95 Nasal Cannula 04/10/25 11:45 36.5 C 83 18 105/67 96 Nasal Cannula 04/10/25 11:35 78 16 106/60 100 Oxymask 04/10/25 11:25 85 18 119/81 98 Oxymask 04/10/25 11:15 82 16 128/84 97 Oxymask 04/10/25 11:08 36.3 C L 88 16 127/81 99 Oxymask 04/10/25 08:55 Room Air 04/10/25 08:55 36.6 C 92 H 20 148/87 H 95 Room Air O2 Flow Rate 04/10/25 12:40 2 04/10/25 12:25 2 04/10/25 12:10 2 04/10/25 11:55 2 04/10/25 11:45 2 04/10/25 11:35 4 04/10/25 11:25 6 04/10/25 11:15 6 04/10/25 11:08 6 04/10/25 08:55 04/10/25 08:55 Pain Intensity Left Lower Medial Leg: Pain Intensity: 7 Transfer of Care Handoff Completed per policy Notes Mental Status: alert / awake / arousable and participated in evaluation Patient Amnestic to Procedure: Yes Nausea / Vomiting: adequately controlled Pain: adequately controlled Airway Patency, RR, SpO2: stable & adequate BP & HR: stable & adequate Hydration State: stable & adequate Anesthetic Complications: no major complications apparent and Pt Satisfied with anesthetic care
[2025-04-10] MEDS ORDERED: ALBUTEROL HFA 8 GM INHALER INH PRN (13:05)
[2025-04-10] MEDS ORDERED: LORATADINE 10 MG TAB PO PRN (13:05)
[2025-04-10] MEDS: IBUPROFEN 200 MG TAB PO PRN (15:28)
[2025-04-10] MEDS: cephALEXin 500 MG CAP PO SCH (16:42)
[2025-04-10] MEDS: RIVAROXABAN 2.5 MG TAB PO SCH (20:22)
[2025-04-10] MEDS: SULFAMETHOXAZOLE/TRIMETHOPRIM DS 800/160MG TAB PO SCH (20:22)
[2025-04-10] MEDS: amLODIPine BESYLATE 5 MG TAB PO SCH (20:22)
[2025-04-11] MEDS: oxyCODONE/ACETAMINOPHEN 5mg/325mg TAB PO PRN (03:11)
[2025-04-11] MEDS: FLUTICASONE/VILANTEROL 200/25MCG 14 PUFFS/INHALER INH SCH (08:13)
[2025-04-11] MEDS: UMECLIDINIUM BROMIDE 62.5MCG/BLISTER 7 PUFFS/INHALER INH SCH (08:13)
--- NOTE | 2025-04-11 09:06 | Operative Report ---
Post Operative Report Pre & Post Diagnosis Operation Date: 04/10/25 09:50 Pre-Op Diagnosis: Left Lower Extremity Wound Infection Post-Op Diagnosis: Left Lower Extremity Wound Infection I identified the patient and participated in the time-out.: Yes Procedure Operation Date: 04/10/25 09:50 Actual Procedures p Left Leg Wound Debridement(Left) and application of wound vac (40x3) - Russel Arias MD Surgeon Russel Arias MD Casting Plug Assembler HAYLEY Starr Estimated Blood Loss 20 Findings Consistent with Post-Op Diagnosis Specimens none Anesthesia Type General Complications none Disposition Accompanied Patient To Recovery: No Disposition: Recovery Room Indications This patient had a previous left lower extremity bypass.. Lower calf incision dehisced that has necrotic tissue at the base and the edges of the wound. Debridement was recommended. I have discussed the risks options and benefits of the procedure with the patient. The patient understands the risks options and benefits and agrees to the procedure. Description of Procedure Patient was laying down in place spine position. After general anesthesia was accomplished the left lower extremity was prepped and draped in a sterile manner. A timeout was performed and the patient was identified. Using sharp and blunt dissection the wound of the left lower extremity was debrided of soft tissue and skin. It was done for distance of 40 x 3 cm. Good viable tissue was noted in all edges at that time. Adequate hemostasis was then obtained of the wound. A silver foam wound VAC was then placed over the 40 x 3 cm wound. Good suction was noted.The patient left the operation room in satisfactory condition and tolerated the procedure well. All needle and sponge counts were correct at the end of the procedure. Ada Jamil Pac assisted due to lack of resident availability and was necessary for positioning, draping, retraction, wound closure deep layers, subcutaneous tissue, and skin closure and was necessary for assisting with the case. I attest to the content of the Intraoperative Record and any orders documented therein. Any exceptions are noted below.
[2025-04-11 09:47] LABS: Basophils # (auto) 0.03 K/uL (0.00-0.20); Basophils % (auto) 0.2 %; Eosinophils # (auto) 0.04 K/uL (0.00-0.50); Eosinophils % (auto) 0.3 %; Hematocrit (blood only) 43.6 % (37.0-47.0); Immature Granulocytes # (auto) 0.09 K/uL (0.01-0.20); Immature Granulocytes % (auto) 0.6 %; Lymphocytes # (auto) 1.08 K/uL (1.20-3.40); Lymphocytes % (auto) 7.1 %; Mean Corpuscular Hemoglobin 31.7 pg (25.0-34.0); Mean Corpuscular Hgb Conc 32.1 g/dL (32.0-36.0); Mean Corpuscular Volume 98.9 fL (80.0-100.0); Mean Platelet Volume 9.4 fL (9.4-12.4); Monocytes # (auto) 0.64 K/uL (0.11-0.59); Monocytes % (auto) 4.2 %; Neutrophils # (auto) 13.29 K/uL (1.40-6.50); Neutrophils % (auto) 87.6 %; Platelet Count 212 K/uL (130-400); RDW Coefficient of Variation 12.9 % (11.5-14.5); RDW Standard Deviation 46.9 fL (36.4-46.3); Red Blood Count 4.41 M/uL (4.20-5.40); White Blood Count 15.17 K/ul (4.8-10.8)
[2025-04-11 10:03] LABS: BUN Creatinine Ratio 26.7 (10-20); Calcium 9.6 mg/dl (8.6-10.3); Creatinine Clr Calc Pharmacy 58.6 ml/min; Potassium 4.7 mmol/L (3.5-5.1)
--- NOTE | 2025-04-11 11:22 | Surgery Progress Note ---
Date of Service April 11, 2025 Assessment & Plan (1) Wound infection following procedure: Plan: Pt doing well post op. Pain under adequate control. Pt anxious for d/c home. Will reeval tomorrow during wound vac change. Possible d/c home tomorrow if wound vac approved. Admission and Anticipated Discharge Date Admission Date: April 10, 2025 Subjective 65 yo f POD #1 after debridement of LLE surgical wound, seen in f/u today. Pt remains on abx. Pt admits some pain in LLE, but no other new complaints. States her L foot feels same. Review of Systems Review of Systems: All systems reviewed & are unremarkable except as noted in HPI & below Physical Exam Constitutional: WD/WN, vitals as above Respiratory: normal respiratory effort, lungs clear to auscultation Auscultation: + diminished lung sounds Cardiovascular: Rate/Rhythm: regular rate and regular rhythm Vessels: posterior tibial pulses present (doppler excellent signal BLE) Extremities: + abnormal capillary refill (delayed to LLE toes) LLE distal AT with excellent doppler signal, but no signal on foot Gastrointestinal (Abdomen): Inspection/Auscultation: abdomen normal to inspection and normal bowel sounds Percussion/Palpation: abdomen soft; abdomen nontender Musculoskeletal: no cyanosis or clubbing, extremities motor strength 5/5 Skin: LLE with wound vac in place, working appropriately Neurologic: moves all extremities and awake; no focal motor deficits and not confused Psychiatric: A+Ox3, euthymic affect Results & Data Vital Signs (Past 12 Hours) Vital Signs Temp Pulse Resp BP Pulse Ox O2 Del Method 04/11/25 11:09 36.8 C 76 16 112/70 92 Room Air 04/11/25 08:30 Room Air 04/11/25 07:36 36.5 C 60 16 101/64 97 Room Air 04/11/25 03:14 36.6 C 83 20 135/82 93 Room Air
--- NOTE | 2025-04-12 14:48 | Surgery Progress Note ---
Date of Service April 12, 2025 Assessment & Plan (1) Wound infection following procedure: Plan: Pt doing well post op. Will order antacid and protonix. IF afebrile and able to tolerate PO later, ok for d/c home. Admission and Anticipated Discharge Date Admission Date: April 10, 2025 Subjective 65 yo f POD #2 after debridement of LLE surgical wound, seen in f/u today. Pt with N/V following noon meal today, feels like acid reflux per pt. No nausea prior to this. Pt admits some pain in LLE, but no other new complaints. States her L foot feels same. Review of Systems Review of Systems: All systems reviewed & are unremarkable except as noted in HPI & below Physical Exam Constitutional: WD/WN, vitals as above Respiratory: normal respiratory effort, lungs clear to auscultation Auscultation: + diminished lung sounds Cardiovascular: Rate/Rhythm: regular rate and regular rhythm Vessels: posterior tibial pulses present (doppler excellent signal BLE) Extremities: + abnormal capillary refill (delayed to LLE toes) Gastrointestinal (Abdomen): Inspection/Auscultation: abdomen normal to inspection and normal bowel sounds Percussion/Palpation: abdomen soft; abdomen nontender Musculoskeletal: no cyanosis or clubbing, extremities motor strength 5/5 Neurologic: moves all extremities and awake; no focal motor deficits and not confused Psychiatric: A+Ox3, euthymic affect Results & Data Vital Signs (Past 12 Hours) Vital Signs Temp Pulse Resp BP Pulse Ox O2 Del Method O2 Flow Rate 04/12/25 07:51 Room Air 04/12/25 07:28 36.6 C 84 16 137/73 92 Nasal Cannula 2
[2025-04-12 14:51] VITALS: TEMP 98.1
[2025-04-12 15:11] VITALS: BP 124/74
[2025-04-12 15:12] VITALS: PULSE 83; RESP 17; O2SAT 93
[2025-04-12] MEDS: CALCIUM CARBONATE 500 MG CHEWABLE TAB PO ONE (15:26)
[2025-04-12] MEDS: PANTOprazole 40 MG TAB PO STA (15:29)
--- NOTE | 2025-04-18 08:46 | Discharge Summary ---
Date of Service April 18, 2025 Admission HPI Per Admitting Provider Name: JOSE SUN Patient Number: [id number] : [id number] Date of Service: 04/06/2025 Chief Complaint: _Follow-up for left leg bypass HPI: _Ms. sun is an elderly female who presents to Dr. Arias's vascular surgery clinic today for a 1 week follow-up visit regarding her left leg femoral to posterior tibial artery in situ and composite reverse saphenous vein bypass, which occurred about 5 weeks ago at [facility]. She was seen for her initial follow-up visit and found to have very macerated wound bed, likely due to the Vaseline gauze dressings that were being placed. She was then seen last week for further evaluation and removal of rey, and her wound edges were noted to be severely necrotic with slough in the wound bed. At that time there was not significant periwound erythema, but she was started on Augmentin. Patient states that she has been having some increasing pain in her left leg surgical wound since her last visit here. She states she has been checking her temperature at home and has not been febrile. She states that she feels that her wound is looking slightly worse. She denies nausea vomiting or other systemic illness. Current Home Meds: (Last Updated 04/06 15:30) albuterol (Albuterol (Eqv-ProAir HFA) 90 mcg/inh inhalation aerosol) 90 mcg inhaled q6h PRN: as needed for shortness of breath or wheezing amLODIPine (amLODIPine 5 mg oral tablet) 5 mg PO Daily amoxicillin-clavulanate (Augmentin 875 mg-125 mg oral tablet) 1 tab PO q12h cephalexin (Keflex 500 mg oral capsule) 500 mg PO qid fluticasone-salmeterol (Advair Diskus 500 mcg-50 mcg) 1 puff PO bid guaifenesin-pseudoephedrine (Mucinex D Max Strength 120 mg-1200 mg oral tablet, extended release) 1 tab PO q12h PRN: congestion ibuprofen 800 mg PO Daily loratadine (Claritin 10 mg oral tablet) 10 mg PO Daily PRN: as needed for allergy symptoms nystatin topical (nystatin 100,000 units/g topical powder) 1 appl topical bid rivaroxaban (Xarelto 2.5 mg oral tablet) 2.5 mg PO bid sulfamethoxazole-trimethoprim (Bactrim DS 800 mg-160 mg oral tablet) 1 tab PO bid tiotropium (Spiriva 18 mcg inhalation capsule) 18 mcg inhaled Daily Allergies and Sensitivities: escitalopram(Somnolence) Latex(rash) statins(muscle spasms, malaise) aspirin(upset stomach and bloody stools) Past Medical History: Problems: Wound infection after surgery Tobacco user S/P femoral-tibial bypass HTN, goal below 130/80 HLD (hyperlipidemia) History of CVA (cerebrovascular accident) BRANT (generalized anxiety disorder) (atherosclerosis) COPD with emphysema Polyp of colon Hematuria Erythrocytosis Factor V deficiency Requires oxygen therapy Statin intolerance Infrarenal abdominal aortic aneurysm, without rupture Depression Body mass index [BMI] 31.0-31.9, adult GERD without esophagitis Vitamin D deficiency Pulmonary nodule OBJECTIVE Vitals: Last Updated 04/06/25 14:59 Date Temp BP Location Pulse RR SpO2 Pain 04/06/25 37.4 120/74 Left Arm 101 93 03/30/25 100/78 Left Arm 101 93 03/30/25 0 Vital Signs are the last 3 documented. No Orthostatic Data Available Height and Weight: Last Updated 03/24/25 09:43 Date BMI Wt(kg) Wt(lb) Method Ht(cm) (ft-in) Method 03/24/25 78.4 172 Standing Scale 03/22/25 78 172 Standing Scale 12/22/24 80.9 178 Standing Scale Heights and Weights are the last 3 documented. Physical Exam Constitutional: In general patient is a healthy-appearing well-nourished well- developed elderly female in no distress. Her lungs are clear. Her heart has a regular rate and rhythm. Her left groin surgical wound is well-healed at this point. There is no further erythema there, and her previous fungal type rash has resolved. Her lower leg wound has worsening tissue necrosis at the edges and increased angry erythema and warmth. There is slough in the wound beds as well as further tissue necrosis. Her posterior tibial Doppler pulse is excellent. Her entire lower leg is mildly erythematous as well. ASSESSMENT: _ PLAN: _ 1 ) _status post left leg femoral to posterior tibial artery in situ composite reverse saphenous vein bypass, wound infection While her bypass appears to remain patent by physical exam, patient does appear to have a wound infection in the lower leg wound. This appears to be more of a superficial tissue infection, but there is significant cellulitis and tissue necrosis. After discussion with Dr. Arias, he recommends that patient undergo surgical debridement of this area in the OR in a few days. We will have her stop the Augmentin after start taking Keflex and Bactrim for improved coverage. While she does not have signs of sepsis in the office today, she was advised to go to the emergency department if she develops a fever over 100 degrees, or has any nausea vomiting or increased pain of her lower extremity. She can also call our office if she has any further questions. The surgical debridement of her left lower extremity procedure was discussed at length with the patient by myself. The risks of the surgery benefits and alternatives were also discussed with the patient by myself at Dr. Arias's request. Patient expressed understanding and agreement to proceed. This should occur in the OR on Thursday. Thank you for letting us participate in the care of this patient. Signature Line Electronic Signature on File CC: Vivian Suarez, DO [address] [facility] [id number] Electronically Reviewed/Signed by: Ada Jamil PA-C Author Signature Dt/Tm:04/06/2025 04:00 PM [facility] [address] [facility], [address] [place] [id number] LM Result Type: HVI Outpt Note Date of Service: April 06, 2025 15:52 EDT Authorization Status: Final Author or Import Date: DAVID Jamil Lynn on April 06, 2025 16:00 EDT Verified By: DAVID Jamil Lynn on April 06, 2025 16:00 EDT Encounter info: [id number], [facility], Clinic, 04/06/2025 - 04/06/2025 Admission Exam Per Admitting Provider Constitutional: In general patient is a healthy-appearing well-nourished well-developed elderly female in no distress. Her lungs are clear. Her heart has a regular rate and rhythm. Her left groin surgical wound is well-healed at this point. There is no further erythema there, and her previous fungal type rash has resolved. Her lower leg wound has worsening tissue necrosis at the edges and increased angry erythema and warmth. There is slough in the wound beds as well as further tissue necrosis. Her posterior tibial Doppler pulse is excellent. Her entire lower leg is mildly erythematous as well. Principal Diagnosis 1. s/p LLE wound debridement with wound vac placement 2. LLE surgical wound infection Discharge Exam Constitutional WD/WN, vitals as above Respiratory normal respiratory effort, lungs clear to auscultation Auscultation: + diminished lung sounds Cardiovascular Rate/Rhythm: regular rate and regular rhythm Vessels: posterior tibial pulses present (doppler excellent signal BLE) Extremities: + abnormal capillary refill (delayed to LLE toes) Gastrointestinal (Abdomen) Inspection/Auscultation: abdomen normal to inspection and normal bowel sounds Percussion/Palpation: abdomen soft; abdomen nontender Musculoskeletal no cyanosis or clubbing, extremities motor strength 5/5 Neurologic moves all extremities and awake; no focal motor deficits and not confused Psychiatric A+Ox3, euthymic affect Discharge Data Allergies Allergy/AdvReac Type Severity Reaction Status Date / Time latex Allergy Mild Localized Verified 04/10/25 08:47 Redness escitalopram AdvReac Severe Lethargy Verified 04/10/25 08:47 aspirin AdvReac Intermediate Abdominal Verified 04/10/25 08:47 Pain [id number] Reductase AdvReac Intermediate Muscle Pain Verified 04/10/25 08:47 Inhibitor Procedures Performed Operation Date: 04/10/25 09:50 Actual Procedures p Left Leg Wound Debridement(Left) - Russel Arias MD Hospital Course (1) Wound infection following procedure: Pt doing well post op. Will order antacid and protonix. IF afebrile and able to tolerate PO later, ok for d/c home. Total Time Total Time Spent Total Time Spent (In Minutes): 0 Discharge Plan Discharge Items Patient Disposition: Home - Home Health Services Reason For Visit: Left Lower Extremity Wound Infection Discharge Diagnosis: 1. s/p LLE wound debridement with wound vac 2. LLE surgical wound infection Activity: Per Instructions section Lifting: No more than 5 pounds Bathing: Keep incision dry Non-emergency contact: Primary Care Provider and Surgeon Call non-emergency contact if: you have any medication questions, your symptoms worsen, your pain is not controlled, your pain is concerning for you, you have a fever, your wound has increased redness and your wound has increased drainage Follow-up/Referrals: Russel Arias MD [Physician] - (Follow up with Dr Arias or Ada Jamil PA-C, in 2 weeks.) Vivian Suarez DO [Primary Care Provider] - (Follow up with your PCP within 2 weeks) Diet: Regular and Heart Healthy Addtl Attending Provider Instructions: ACTIVITY RECOMMENDATIONS: See Above SPECIAL CARE INSTRUCTIONS: Call your doctor if: * Temperature above 101 degrees * Pain not relieved by pain medicine ordered * There is increased drainage or redness from any incision * You have any unanswered questions or concerns. Pending Studies at Discharge: No Stand-Alone Forms: My [facility] [employer], Smoking Cessation Medications and DC Order Prescriptions: Continued fluticasone propion-salmeterol [Advair Diskus] 500-50 mcg/dose blister with device 1 inh inhalation BID Qty: 60 3RF (DME) Oxygen Home Liters Per Minute See Rx Instructions .MEDSUPPLY Qty: 1 0RF Rx Instructions: Oxygen 1 L/min with activity and nightly, needs portable oxygen concentrator, DME AHP ibuprofen 200 mg Tablet 200 mg PO Q6H PRN (Reason: Pain) tiotropium bromide [Spiriva with HandiHaler] 18 mcg capsule, w/inhalation device 1 cap INHALATION QAM amlodipine [Norvasc] 5 mg tablet 5 mg PO HS loratadine [Claritin] 10 mg tablet 10 mg PO QAM PRN (Reason: Allergy Symptoms) sulfamethoxazole 500 mg Tablet 500 mg PO BID Patient Comments: unable to verify dose - Started yesterday 04/06/25 cephalexin 500 mg Capsule 500 mg PO QID Patient Comments: "I started it yesterday 04/06/25" oxycodone-acetaminophen [Percocet] 5-325 mg tablet 1 - 2 tab PO Q4H PRN (Reason: Pain) albuterol sulfate 90 mcg/actuation HFA aerosol inhaler 1 inh inhalation Q6H PRN (Reason: Shortness Of Breath Or Wheezing) rivaroxaban [Xarelto] 2.5 mg Tablet 2.5 mg PO BID Rx Instructions: patient has not started yet, Discontinued amoxicillin-pot clavulanate 875-125 mg tablet 1 tab PO BID Patient Comments: "I stopped it yesterday 04/06/25 when I got the other two antibiotics." Discharge Orders: Discharge Order (Routine); Ordered 04/12/25 Ordered By: Ada Sanders/Other Patient Handouts: Negative Pressure Wound Therapy Admission Data Admit Date/Time: 04/10/25 09:20 Attending Provider: Russel Arias Admit Provider: Russel Arias Primary Care Provider: Vivian Suarez Other Providers: [facility],Home Healthcare Other Interventions: Discharge Summary Assessment (RN) Last Done: 04/12/25 17:07
== END 2025-04-12 17:53 | disposition home health service (06) | DRG 857 ==
LOC: ASU 08:25 → 3N 09:20

== ENCOUNTER 2025-05-24 12:00 | Inpatient (IN) ==
[2025-05-24 12:38] LABS: Hematocrit (blood only) 44.3 % (37.0-47.0); Hemoglobin 14.6 g/dl (12.0-16.0); Immature Granulocytes # (auto) 0.06 K/uL (0.01-0.20); Immature Granulocytes % (auto) 0.5 %; Mean Corpuscular Hemoglobin 30.2 pg (25.0-34.0); Mean Corpuscular Volume 91.7 fL (80.0-100.0); Platelet Count 171 K/uL (130-400); RDW Standard Deviation 46.7 fL (36.4-46.3); Red Blood Count 4.83 M/uL (4.20-5.40); White Blood Count 12.18 K/ul (4.8-10.8)
[2025-05-24 13:00] LABS: Alanine Aminotransferase 14 U/L (7-52); Albumin Globulin Ratio 1.1 (0.9-2); Alkaline Phosphatase 90 U/L (34-104); Anion Gap 12 (3-11); Bilirubin,Total 0.8 mg/dl (0.2-1.0); Blood Urea Nitrogen 22 mg/dl (6-23); Calcium 9.4 mg/dl (8.6-10.3); Carbon Dioxide 26 mmol/L (21-32); Chloride 96 mmol/L (98-107); Globulin 3.4 gm/dl (2.5-4.0); Glucose 101 mg/dl (70-99(Fasting)); Potassium 3.7 mmol/L (3.5-5.1); Sodium 134 mmol/L (136-145); Total Protein 7.1 gm/dl (6.0-8.3)
[2025-05-24] MEDS: LEVALBUTEROL 1.25 MG/3 ML NEB NEB STA (13:08)
[2025-05-24] MEDS: SODIUM CHLORIDE 0.9% 1,000 ML IV SCH (13:08)
--- NOTE | 2025-05-24 13:10 | Emergency Department Note ---
Impression & Plan Sepsis, Acute cellulitis, COPD with acute exacerbation, Pneumonia, COPD with hypoxia ED Provider Note NAME: JOSE MAYNARD AGE: 65 SEX: F : 1960 ARRIVES VIA: Walk-In INFORMANT: Patient, ED PROVIDER(S): Timmy Sheppard MD CHIEF COMPLAINT: Outpatient referral, chills, chronic wound MEDICAL DECISION MAKING: Patient presents today due to concern for fevers chills poor appetite. IV was established and blood work was obtained. The patient was treated with empiric antibiotics and sepsis protocols initiated. Patient did receive IV fluids. Patient with white count of 12 with a normal hemoglobin. Platelet count is unremarkable. Patient also did receive DuoNeb treatment and IV steroids. Initial lactate is normal. Troponin to 14.5. Patient denies any chest pains but does have chronic shortness of breath. Procalcitonin is not elevated. Bio fire negative. Chest x-ray does show concern for possible pneumonia. Given these concerns with her concomitant issues with the wound and possible cellulitis I did speak the on-call hospitalist service Nancy Limon PA-C with Dr. Holt. Critical Care: I have personally spent 37 minutes of critical care time in direct management of this patient. This includes bedside care, interpretation of diagnostic studies, and testing, discussion with consultants, patient, and family members, and other require inpatient management activities. This 37 minutes is in excess of all separately billable procedures. Discussion w/ other healthcare providers: Nancy Limon PA-C and Dr. Holt inpatient medicine service Prior /Outside records reviewed: None Differential diagnosis: Viral syndrome, otitis, pharyngitis, pneumonia, influenza, meningitis, urinary tract infection, sepsis, bacteremia, as well as other pathologies. Diagnostics, as interpreted by me: ECG: Normal sinus rhythm, rate of 98, normal intervals, normal axis no ST elevations or TWI. Cardiac monitoring: An order was placed for continuous cardiac monitoring. The monitor shows a rate of 95 with sinus rhythm. Patient was placed on pulse oximetry Medical decision rules: None Imaging studies: I informally interpreted the patient's chest x-ray shows concern for left-sided pneumonia with formal report to follow. HPI: Patient presents due to concern for chills. She reports that she has had a wound VAC in place which gets changed several times a week and reported chills called the outpatient services and was referred here for further evaluation treatment. Patient denies any chest pains. She does wear chronic oxygen just ever from chronic shortness of breath. No falls or trauma. Patient has had productive cough. Patient with known history of COPD. Patient states that she has had poor appetite and that some of her symptoms began last week but have not improved. PAST MEDICAL HISTORY: See Below PAST SURGICAL HISTORY: See Below SOCIAL HISTORY: See Below HOME MEDICATIONS: See Below ALLERGIES: See Below VITALS: See Below PHYSICAL EXAMINATION: GENERAL: NAD, non-toxic. Appears older than stated age. Nasal cannula in place. EYE EXAM: Normal conjunctiva. PERRL, no anisocoria and EOM's grossly intact w/o pain. OROPHARYNX: Dry mucus membranes, grossly normal dentition. NECK: Trachea midline, no stridor. LUNGS: Wheezing noted throughout. Normal chest wall mechanics. HEART: Tachycardic, no MRG. ABDOMEN: Abdomen soft, non-tender, no masses, no rebound or guarding. BACK: No CVA TTP. SKIN: No rashes and no bruising. UPPER EXTREMITIES: Upper extremities are grossly normal. LOWER EXTREMITIES: Wound VAC noted to the medial aspect of the left lower leg mild surrounding erythema but no obvious fluctuance or appreciable drainage. NEURO EXAM: Awake and alert, follows commands, no obvious facial asymmetry, normal speech, moves all 4 extremities. Past Med/Surg History Problem List (Updated 05/29/25 @ 16:38 by Timmy Sheppard MD) Pneumonia (Acute) Bypass graft stenosis Factor V Leiden mutation COPD with acute exacerbation (Acute) Acute cellulitis (Acute) Sepsis (Acute) Hypoxia Wound infection following procedure Peripheral vascular disease Microscopic hematuria Bronchiectasis Pulmonary nodule COPD with hypoxia (Acute) Medical History Chronic cough COPD Hx of hematuria pt denies at this time PONV (postoperative nausea and vomiting) Leg wound, left s/p femoral-tibial bypass - reason for procedure 04/10/25 AAA (abdominal aortic aneurysm) 3 cm infrarenal Pulmonary nodule Claustrophobia severe BRANT (generalized anxiety disorder) cannot tolerate meds for this, manages on own History of COVID-20 May 2022 Factor 5 Leiden mutation, heterozygous On home oxygen therapy 1.5-2.0 LPM at HS Tobacco abuse Hx of ischemic right MCA stroke Oct 2015 > does have slight reading difficulty since then, possibly related to Factor 5 dx shortly after HTN (hypertension) Dyslipidemia COPD (chronic obstructive pulmonary disease) uses res inh "off and on" Surgical History History of tooth extraction Upper/Lower Dentures - only wears upper Status post femorotibial bypass (03/01/25) History of colonoscopy S/P endometrial ablation H/O tubal ligation History of dental surgery Family History Other Diabetes Hypertension Social History Smoking Status: Current every day smoker Tobacco Type: Cigarettes packs per day: 1; Cigarettes Per Day: 1/2 pack per day; Second Hand Exposure: No; Do You Dip or Chew Tobacco: No; Hx Alcohol Use: Yes Alcohol type: hard liquor Alcohol Intake Frequency: Monthly or Less Hx Substance Use: No Preferred Language: Portuguese Communication Ability: Effective Sr. Vendor Management Associate Required: No Beliefs That Will Affect Care: None marital status: Single Current Living Situation: Alone Other Information That Helps Us Care for You: No Feels Safe at Home: Yes Safety Concerns: Feels Safe At This Time Assistive Devices: Oxygen - at Night, Walker and Other Allergies Allergies Allergy/AdvReac Type Severity Reaction Status Date / Time latex Allergy Mild Localized Verified 05/09/25 09:19 Redness escitalopram AdvReac Severe Lethargy Verified 05/09/25 09:19 aspirin AdvReac Intermediate Abdominal Verified 05/09/25 09:19 Pain [id number] Reductase AdvReac Intermediate Muscle Pain Verified 05/09/25 09:19 Inhibitor Home Meds Home Medications Medication Instructions Recorded Confirmed amlodipine 5 mg tablet (Norvasc) 5 mg PO HS 02/04/25 05/24/25 ibuprofen 200 mg tablet 200 mg PO Q6H PRN Pain 02/04/25 05/24/25 tiotropium bromide 18 mcg capsule 1 cap inhalation QAM 02/04/25 05/09/25 with inhalation device (Spiriva with HandiHaler) loratadine 10 mg tablet (Claritin) 10 mg PO QAM PRN Allergy Symptoms 02/16/25 05/24/25 albuterol sulfate 90 mcg/actuation 1 inh inhalation Q6H PRN Shortness 04/07/25 05/24/25 aerosol inhaler Of Breath Or Wheezing oxycodone-acetaminophen 5 mg-325 1 - 2 tab PO Q4H PRN Pain 04/07/25 05/24/25 mg tablet (Percocet) rivaroxaban 2.5 mg tablet (Xarelto) 2.5 mg PO BID 04/10/25 05/24/25 Previous Rx's Medication Instructions Recorded Oxygen Home #1 ea 02/16/25 Portable Oxygen #1 ea 05/09/25 Oxygen Home #1 ea 05/11/25 fluticasone 500 mcg-salmeterol 50 1 inh inhalation BID #60 ea 05/15/25 mcg/dose blistr powdr for inhalation (Advair Diskus) Results & Data (ED) Vital Signs Vital Signs - 24 hr 05/24/25 12:05 05/24/25 12:30 05/24/25 12:47 Temperature 37.3 C Temperature Source Oral Pulse Rate 104 H 97 H Pulse Rate [Apical] 95 H Respiratory Rate 20 20 Respiratory Effort / Characteristics Spontaneous Non-Labored Spontaneous Respiratory Depth Shallow Normal Respiratory Pattern Regular Blood Pressure 118/82 Blood Pressure [Right Arm] 120/74 Blood Pressure Mean 94 Blood Pressure Mean [Right Arm] 89 Blood Pressure Position [Right Arm] Semi-fowlers Pulse Oximetry 90 98 Oxygen Delivery Method Room Air Nasal Cannula Oxygen Flow Rate 3 Sepsis Recent Fever Within 48 Hours No Sepsis New/Unexplained Change in Mental Status N/A Sepsis Action Taken by Nursing No Action Required 05/24/25 13:06 Temperature Temperature Source Pulse Rate Pulse Rate [Apical] Respiratory Rate Respiratory Effort / Characteristics Respiratory Depth Respiratory Pattern Blood Pressure Blood Pressure [Right Arm] Blood Pressure Mean Blood Pressure Mean [Right Arm] Blood Pressure Position [Right Arm] Pulse Oximetry 91 Oxygen Delivery Method Nasal Cannula Oxygen Flow Rate 3 Sepsis Recent Fever Within 48 Hours Sepsis New/Unexplained Change in Mental Status Sepsis Action Taken by Usp Medications Current Medication List: was personally reviewed by me Laboratory Data Attestation: I reviewed the patient's lab results. 05/28/25 05:35 05/28/25 05:35 Lab Results 05/24/25 05/24/25 05/24/25 Range/Units 12:14 12:19 12:44 WBC 12.18 H (4.8-10.8) K/ul RBC 4.83 (4.20-5.40) M/uL Hgb 14.6 (12.0-16.0) g/dl Hct 44.3 (37.0-47.0) % MCV 91.7 (80.0-100.0) fL MCH 30.2 (25.0-34.0) pg MCHC 33.0 (32.0-36.0) g/dL RDW Std Deviation 46.7 H (36.4-46.3) fL RDW Coeff of [place] 13.9 (11.5-14.5) % Plt Count 171 (130-400) K/uL MPV 9.0 L (9.4-12.4) fL Immature Gran % (Auto) 0.5 % Neut % (Auto) 81.0 % Lymph % (Auto) 8.5 % Morgan % (Auto) 9.2 % Eos % (Auto) 0.5 % Baso % (Auto) 0.3 % Neut # (Auto) 9.86 H (1.40-6.50) K/uL Lymph # (Auto) 1.04 L (1.20-3.40) K/uL Morgan # (Auto) 1.12 H (0.11-0.59) K/uL Eos # (Auto) 0.06 (0.00-0.50) K/uL Baso # (Auto) 0.04 (0.00-0.20) K/uL Immature Gran # (Auto) 0.06 (0.01-0.20) K/uL Sodium 134 L (136-145) mmol/L Potassium 3.7 (3.5-5.1) mmol/L Chloride 96 L (98-107) mmol/L Carbon Dioxide 26 (21-32) mmol/L Anion Gap 12 H (3-11) BUN 22 (6-23) mg/dl Creatinine 0.85 (0.6-1.2) mg/dl Est Cr Clr Drug Dosing Not Reportable eGFR 75.98 BUN/Creatinine Ratio 25.9 H (10-20) Glucose 101 H (70-99(Fasting)) mg/dl Lactate 0.9 (0.4-2.0) mmol/L Calcium 9.4 (8.6-10.3) mg/dl Magnesium 2.1 (1.7-2.4) mg/dl Total Bilirubin 0.8 (0.2-1.0) mg/dl AST 18 (13-39) U/L ALT 14 (7-52) U/L Alkaline Phosphatase 90 (34-104) U/L Troponin I High Sens 14.5 H (0-14) pg/ml Total Protein 7.1 (6.0-8.3) gm/dl Albumin 3.7 (3.4-5.0) gm/dl Globulin 3.4 (2.5-4.0) gm/dl Albumin/Globulin Ratio 1.1 (0.9-2) Procalcitonin 0.22 (0-0.5) ng/ml Adenovirus (PCR) (NotDetected) B. pertussis DNA (PCR) (NotDetected) B.parapertussis DNA PCR (NotDetected) C. pneumoniae DNA (PCR) (NotDetected) Coronavirus OC43 (PCR) (NotDetected) Coronavirus HKU1 (PCR) (NotDetected) Coronavirus 229E (PCR) (NotDetected) SARS-CoV-2 (PCR) (NotDetected) Coronavirus NL63 (PCR) (NotDetected) Human Metapneumovir PCR (NotDetected) Influenza Type A (PCR) (NotDetected) Influenza Type B (PCR) (NotDetected) M. pneumoniae (PCR) (NotDetected) Parainfluenza 1 (PCR) (NotDetected) Parainfluenza 2 (PCR) (NotDetected) Parainfluenza 3 (PCR) (NotDetected) Parainfluenza 4 (PCR) (NotDetected) RSV (PCR) (NotDetected) Entero/Rhino (PCR) (NotDetected) 05/24/25 Range/Units 14:03 WBC (4.8-10.8) K/ul RBC (4.20-5.40) M/uL Hgb (12.0-16.0) g/dl Hct (37.0-47.0) % MCV (80.0-100.0) fL MCH (25.0-34.0) pg MCHC (32.0-36.0) g/dL RDW Std Deviation (36.4-46.3) fL RDW Coeff of [place] (11.5-14.5) % Plt Count (130-400) K/uL MPV (9.4-12.4) fL Immature Gran % (Auto) % Neut % (Auto) % Lymph % (Auto) % Morgan % (Auto) % Eos % (Auto) % Baso % (Auto) % Neut # (Auto) (1.40-6.50) K/uL Lymph # (Auto) (1.20-3.40) K/uL Morgan # (Auto) (0.11-0.59) K/uL Eos # (Auto) (0.00-0.50) K/uL Baso # (Auto) (0.00-0.20) K/uL Immature Gran # (Auto) (0.01-0.20) K/uL Sodium (136-145) mmol/L Potassium (3.5-5.1) mmol/L Chloride (98-107) mmol/L Carbon Dioxide (21-32) mmol/L Anion Gap (3-11) BUN (6-23) mg/dl Creatinine (0.6-1.2) mg/dl Est Cr Clr Drug Dosing eGFR BUN/Creatinine Ratio (10-20) Glucose (70-99(Fasting)) mg/dl Lactate (0.4-2.0) mmol/L Calcium (8.6-10.3) mg/dl Magnesium (1.7-2.4) mg/dl Total Bilirubin (0.2-1.0) mg/dl AST (13-39) U/L ALT (7-52) U/L Alkaline Phosphatase (34-104) U/L Troponin I High Sens (0-14) pg/ml Total Protein (6.0-8.3) gm/dl Albumin (3.4-5.0) gm/dl Globulin (2.5-4.0) gm/dl Albumin/Globulin Ratio (0.9-2) Procalcitonin (0-0.5) ng/ml Adenovirus (PCR) Not Detected (NotDetected) B. pertussis DNA (PCR) Not Detected (NotDetected) B.parapertussis DNA PCR Not Detected (NotDetected) C. pneumoniae DNA (PCR) Not Detected (NotDetected) Coronavirus OC43 (PCR) Not Detected (NotDetected) Coronavirus HKU1 (PCR) Not Detected (NotDetected) Coronavirus 229E (PCR) Not Detected (NotDetected) SARS-CoV-2 (PCR) Not Detected (NotDetected) Coronavirus NL63 (PCR) Not Detected (NotDetected) Human Metapneumovir PCR Not Detected (NotDetected) Influenza Type A (PCR) Not Detected (NotDetected) Influenza Type B (PCR) Not Detected (NotDetected) M. pneumoniae (PCR) Not Detected (NotDetected) Parainfluenza 1 (PCR) Not Detected (NotDetected) Parainfluenza 2 (PCR) Not Detected (NotDetected) Parainfluenza 3 (PCR) Not Detected (NotDetected) Parainfluenza 4 (PCR) Not Detected (NotDetected) RSV (PCR) Not Detected (NotDetected) Entero/Rhino (PCR) Not Detected (NotDetected) Administered Medications Acetaminophen (Acetaminophen 325 Mg Tab) 650 mg PO Q6H PRN PRN Reason: Pain or Fever Stop: 06/23/25 16:44 Last Admin: 05/29/25 04:20 Dose: 650 mg Documented By: POOJA Amlodipine Besylate (Amlodipine Besylate 5 Mg Tab) 5 mg PO HS GIO Stop: 06/23/25 20:59 Last Admin: 05/28/25 22:34 Dose: 5 mg Documented By: Admin: 05/27/25 20:34 Dose: 5 mg Documented By: Admin: 05/26/25 20:01 Dose: 5 mg Documented By: Admin: 05/25/25 21:00 Dose: 5 mg Documented By: Admin: 05/24/25 20:39 Dose: 5 mg Documented By: TAVO Calcium Carbonate (Calcium Carbonate 500 Mg Chewable Tab) 1,500 mg PO ACHS PRN PRN Reason: Indigestion Stop: 06/25/25 23:19 Last Admin: 05/26/25 23:34 Dose: 1,500 mg Documented By: JEB Fluticasone/Vilanterol (Fluticasone/Vilanterol 200/25mcg 14 Puffs/Inhaler) 1 puffs INH DAILY GIO Stop: 06/24/25 08:59 Last Admin: 05/29/25 09:34 Dose: Not Given Documented By: NORMA(2) Admin: 05/28/25 08:29 Dose: Not Given Documented By: Admin: 05/27/25 08:30 Dose: Not Given Documented By: Admin: 05/26/25 08:46 Dose: Not Given Documented By: Admin: 05/25/25 10:52 Dose: 1 puffs Documented By: OWEN Piperacillin Sod/Tazobactam Sod (Zosyn) 4.5 gm in 100 mls @ 25 mls/hr IV Q8H GIO; Protocol Stop: 05/31/25 20:59 Last Admin: 05/29/25 13:03 Dose: 25 mls/hr Documented By: NORMA(2) Infusion: 05/29/25 08:30 Dose: Infused Documented By: NORMA(2) Admin: 05/29/25 04:22 Dose: 25 mls/hr Documented By: Infusion: 05/29/25 02:51 Dose: Infused Documented By: Admin: 05/28/25 22:34 Dose: 25 mls/hr Documented By: Infusion: 05/28/25 17:01 Dose: Infused Documented By: Admin: 05/28/25 12:53 Dose: 25 mls/hr Documented By: Infusion: 05/28/25 09:34 Dose: Infused Documented By: Admin: 05/28/25 05:25 Dose: 25 mls/hr Documented By: Infusion: 05/28/25 01:23 Dose: Infused Documented By: Admin: 05/27/25 20:36 Dose: 25 mls/hr Documented By: Infusion: 05/27/25 17:32 Dose: Infused Documented By: Admin: 05/27/25 13:19 Dose: 25 mls/hr Documented By: Infusion: 05/27/25 08:31 Dose: Infused Documented By: Admin: 05/27/25 04:15 Dose: 25 mls/hr Documented By: Infusion: 05/27/25 01:53 Dose: Infused Documented By: Admin: 05/26/25 21:53 Dose: 25 mls/hr Documented By: Infusion: 05/26/25 17:20 Dose: Infused Documented By: Admin: 05/26/25 13:10 Dose: 25 mls/hr Documented By: Infusion: 05/26/25 10:00 Dose: Infused Documented By: Admin: 05/26/25 05:44 Dose: 25 mls/hr Documented By: Infusion: 05/26/25 01:01 Dose: Infused Documented By: Admin: 05/25/25 21:01 Dose: 25 mls/hr Documented By: Infusion: 05/25/25 17:54 Dose: Infused Documented By: Admin: 05/25/25 13:21 Dose: 25 mls/hr Documented By: Infusion: 05/25/25 10:50 Dose: Infused Documented By: Admin: 05/25/25 06:43 Dose: 25 mls/hr Documented By: Infusion: 05/25/25 00:36 Dose: Infused Documented By: Admin: 05/24/25 20:36 Dose: 25 mls/hr Documented By: TAVO Ibuprofen (Ibuprofen 200 Mg Tab) 400 mg PO Q6H PRN PRN Reason: Pain or Fever Stop: 06/23/25 18:29 Last Admin: 05/28/25 08:27 Dose: 400 mg Documented By: Admin: 05/27/25 04:12 Dose: 400 mg Documented By: Admin: 05/26/25 08:44 Dose: 400 mg Documented By: Admin: 05/25/25 19:32 Dose: 400 mg Documented By: Admin: 05/25/25 01:49 Dose: 400 mg Documented By: TAVO Morphine Sulfate (Morphine Sulfate 2 Mg/Ml Carp) 1 mg IV Q3H PRN PRN Reason: Pain Stop: 06/09/25 10:48 Last Admin: 05/28/25 06:34 Dose: 1 mg Documented By: Admin: 05/27/25 20:38 Dose: 1 mg Documented By: Admin: 05/27/25 13:57 Dose: 1 mg Documented By: Admin: 05/26/25 23:01 Dose: 1 mg Documented By: Admin: 05/26/25 13:09 Dose: 1 mg Documented By: OWEN Prednisone (Prednisone 10 Mg Tablet) 10 mg PO DAILY GIO Stop: 06/28/25 08:59 Last Admin: 05/29/25 10:17 Dose: 10 mg Documented By: NORMA(2) Sucralfate (Sucralfate 1 Gm Tab) 1 gm PO QID GIO Stop: 06/25/25 12:59 Last Admin: 05/29/25 16:10 Dose: 1 gm Documented By: NORMA(2) Admin: 05/29/25 13:04 Dose: Not Given Documented By: NORMA(2) Admin: 05/29/25 10:17 Dose: 1 gm Documented By: NORMA(2) Admin: 05/28/25 22:34 Dose: 1 gm Documented By: Admin: 05/28/25 16:35 Dose: 1 gm Documented By: Admin: 05/28/25 12:53 Dose: Not Given Documented By: Admin: 05/28/25 08:28 Dose: Not Given Documented By: Admin: 05/27/25 20:35 Dose: 1 gm Documented By: Admin: 05/27/25 16:07 Dose: 1 gm Documented By: Admin: 05/27/25 13:19 Dose: Not Given Documented By: Admin: 05/27/25 08:31 Dose: 1 gm Documented By: Admin: 05/26/25 20:02 Dose: 1 gm Documented By: Admin: 05/26/25 16:12 Dose: 1 gm Documented By: Admin: 05/26/25 13:08 Dose: 1 gm Documented By: OWEN Umeclidinium [place] (Umeclidinium [place] 62.5mcg/Blister 7 Puffs/Inhaler) 1 puffs INH QAM GIO Stop: 06/24/25 08:59 Last Admin: 05/29/25 09:34 Dose: Not Given Documented By: NORMA(2) Admin: 05/28/25 08:29 Dose: Not Given Documented By: Admin: 05/27/25 08:30 Dose: Not Given Documented By: Admin: 05/26/25 08:46 Dose: Not Given Documented By: Admin: 05/25/25 10:52 Dose: 1 puffs Documented By: OWEN Discontinued Medications Albuterol (Albut/Ipratrop 3mg/0.5mg Neb 3 Ml Vial) 3 ml NEB QIDR [facility]; Protocol Stop: 06/23/25 16:59 Last Admin: 05/26/25 07:36 Dose: 3 ml Documented By: [id number] Admin: 05/25/25 20:22 Dose: 3 ml Documented By: Admin: 05/25/25 16:02 Dose: Not Given Documented By: Admin: 05/25/25 11:37 Dose: Not Given Documented By: Admin: 05/25/25 07:08 Dose: 3 ml Documented By: Admin: 05/24/25 21:06 Dose: Not Given Documented By: Admin: 05/24/25 20:28 Dose: 3 ml Documented By: BRANDI Azithromycin (Azithromycin 250 Mg Tab) 500 mg PO NOW ONE Stop: 05/24/25 14:16 Last Admin: 05/24/25 14:39 Dose: 500 mg Documented By: MMF Calcium Carbonate (Calcium Carbonate 500 Mg Chewable Tab) 1,000 mg PO ONCE ONE Stop: 05/26/25 05:23 Last Admin: 05/26/25 05:35 Dose: 1,000 mg Documented By: NORMA Calcium Carbonate (Calcium Carbonate 500 Mg Chewable Tab) 1,000 mg PO ONE ONE Stop: 05/26/25 14:38 Last Admin: 05/26/25 14:48 Dose: 1,000 mg Documented By: OWEN Guaifenesin (Guaifenesin 600 Mg Tabcr) 1,200 mg PO Q12 [facility] Stop: 06/23/25 20:59 Last Admin: 05/25/25 10:52 Dose: Not Given Documented By: Admin: 05/24/25 20:39 Dose: Not Given Documented By: TAVO Sodium Chloride (Nss) 1,000 mls @ 999 mls/hr IV .Q1H1M [facility] Stop: 05/24/25 13:45 Last Infusion: 05/24/25 14:28 Dose: Infused Documented By: Admin: 05/24/25 13:08 Dose: 999 mls/hr Documented By: MMF Ceftriaxone Sodium (Rocephin) 2,000 mg in 50 mls @ 100 mls/hr IV NOW STA Stop: 05/24/25 14:44 Last Infusion: 05/24/25 15:08 Dose: Infused Documented By: Admin: 05/24/25 14:39 Dose: 100 mls/hr Documented By: MMF Famotidine (Pepcid 20mg Iv Push) 20 mg in 5 mls @ 2.5 mls/min IV NOW STA Stop: 05/24/25 14:46 Last Admin: 05/24/25 15:35 Dose: 2.5 mls/min Documented By: DARINEL Vancomycin HCl 2,000 mg/ (Sodium Chloride) 540 mls @ 200 mls/hr IV NOW ONE Stop: 05/24/25 17:45 Last Infusion: 05/24/25 19:09 Dose: Infused Documented By: Admin: 05/24/25 16:20 Dose: 200 mls/hr Documented By: DARINEL Sodium Chloride (Nss) 500 mls @ 999 mls/hr IV .Q31M ONE Stop: 05/24/25 15:34 Last Infusion: 05/24/25 17:41 Dose: Infused Documented By: Admin: 05/24/25 15:34 Dose: 999 mls/hr Documented By: DARINEL Piperacillin Sod/Tazobactam Sod (Zosyn) 4.5 gm in 100 mls @ 200 mls/hr IV NOW STA; Protocol Stop: 05/24/25 15:35 Last Infusion: 05/24/25 16:23 Dose: Infused Documented By: Admin: 05/24/25 15:37 Dose: 200 mls/hr Documented By: DARINEL Methylprednisolone 40 mg/ (Syringe) 0.64 mls @ 1.5 mls/min IV Q8H GIO Stop: 06/23/25 16:59 Last Admin: 05/25/25 10:48 Dose: 1.5 mls/min Documented By: Admin: 05/25/25 01:46 Dose: 1.5 mls/min Documented By: Admin: 05/24/25 18:16 Dose: 1.5 mls/min Documented By: TORRIE Vancomycin HCl 1,500 mg/ (Sodium Chloride) 530 mls @ 200 mls/hr IV Q24H GIO Stop: 06/01/25 07:59 Last Infusion: 05/25/25 13:42 Dose: Infused Documented By: Admin: 05/25/25 10:56 Dose: 200 mls/hr Documented By: OWEN Vancomycin HCl 1,500 mg/ (Sodium Chloride) 530 mls @ 200 mls/hr IV Q18H GIO Stop: 06/02/25 05:59 Last Infusion: 05/26/25 08:35 Dose: Infused Documented By: Admin: 05/26/25 05:44 Dose: 200 mls/hr Documented By: NORMA Ioversol (Optiray 320 125ml) 115 ml IV ONCE ONE Stop: 05/27/25 14:52 Last Admin: 05/27/25 14:52 Dose: 115 ml Documented By: MARGARET Levalbuterol HCl (Levalbuterol 1.25 Mg/3 Ml Neb) 1.25 mg NEB NOW STA Stop: 05/24/25 12:38 Last Admin: 05/24/25 13:08 Dose: 1.25 mg Documented By: MMF Methylprednisolone (Methylprednisolone 125 Mg/2 Ml Vial) 80 mg IV NOW STA Stop: 05/24/25 12:38 Last Admin: 05/24/25 13:08 Dose: 80 mg Documented By: MMF Morphine Sulfate (Morphine Sulfate 2 Mg/Ml Carp) 1 mg IV Q3H PRN PRN Reason: Pain Stop: 06/07/25 15:31 Last Admin: 05/25/25 10:45 Dose: 1 mg Documented By: OWEN Morphine Sulfate (Morphine Sulfate 2 Mg/Ml Carp) 1 mg IV NOW STA Stop: 05/26/25 00:05 Last Admin: 05/26/25 00:26 Dose: 1 mg Documented By: NORMA Prednisone (Prednisone 10 Mg Tablet) 10 mg PO TID GIO Stop: 06/24/25 20:59 Last Admin: 05/26/25 08:45 Dose: 10 mg Documented By: Admin: 05/25/25 21:00 Dose: 10 mg Documented By: NORMA Prednisone (Prednisone 10 Mg Tablet) 10 mg PO BID GIO Stop: 06/25/25 20:59 Last Admin: 05/28/25 08:28 Dose: 10 mg Documented By: Admin: 05/27/25 20:35 Dose: 10 mg Documented By: Admin: 05/27/25 08:30 Dose: 10 mg Documented By: Admin: 05/26/25 20:01 Dose: 10 mg Documented By: JEB Rivaroxaban (Rivaroxaban 2.5 Mg Tab) 2.5 mg PO BID GIO Stop: 06/23/25 20:59 Last Admin: 05/25/25 10:53 Dose: 2.5 mg Documented By: Admin: 05/24/25 20:40 Dose: 2.5 mg Documented By: CR Imaging Data Radiologist's Impression: Chest X-Ray 05/24/25 12:37 XR chest 1V portable CLINICAL HISTORY: Sepsis COMPARISON STUDY: 04/07/2024 FINDINGS: Heart size and pulmonary vasculature are normal. There is a possible small area of patchy opacity lateral left midlung versus overlap artifact. No other consolidation or pleural effusion seen. No pneumothorax. IMPRESSION: Early pneumonia versus artifact lateral left midlung. ACT 112: Negative or not required by law. Electronically signed by: Kumar Ford M.D. 05/24/2025 1:15 PM Discharge Plan Visit Data Chief Complaint: Illness Stated Complaint: wound vac- fever. chills, nausea ED Provider: Timmy Sheppard Discharge Problem: Sepsis, Acute cellulitis, COPD with acute exacerbation, Pneumonia, COPD with hypoxia Patient Disposition: Admitted As Inpatient Condition: Fair Discharge Instructions Interventions: ED Discharge Assessment Last Done: 05/24/25 16:48 Discharge Problem: Sepsis Qualifiers: Sepsis type: sepsis due to unspecified organism Sepsis acute organ dysfunction status: with acute organ dysfunction Severe sepsis acute organ dysfunction type: acute respiratory failure Acute respiratory failure type: with hypoxia Severe sepsis shock status: without septic shock Qualified Code(s): A41.9 - Sepsis, unspecified organism; R65.20 - Severe sepsis without septic shock; J96.01 - Acute respiratory failure with hypoxia Pneumonia Qualifiers: Pneumonia type: due to unspecified organism Laterality: left Lung location: u nspecified part of lung Qualified Code(s): J18.9 - Pneumonia, unspecified organism
[2025-05-24 13:16] LABS: Magnesium 2.1 mg/dl (1.7-2.4)
--- NOTE | 2025-05-24 13:16 | XRay Report ---
XR chest 1V portable CLINICAL HISTORY: Sepsis COMPARISON STUDY: 04/07/2024 FINDINGS: Heart size and pulmonary vasculature are normal. There is a possible small area of patchy o pacity lateral left midlung versus overlap artifact. No other consolidation or pleural effusion seen. No pneumothorax. IMPRESSION: Early pneumonia versus artifact lateral left midlung. ACT 112: Negative or not required by law. Electronically signed by: Kumar Ford M.D. 05/24/2025 1:15 PM
[2025-05-24] MEDS: cefTRIAXone SODIUM 2,000 MG/50 ML BAG IV STA (14:39)
[2025-05-24] MEDS: AZITHROMYCIN 250 MG TAB PO ONE (14:39)
--- NOTE | 2025-05-24 14:49 | History & Physical Report ---
Date of Service May 24, 2025 Assessment & Plan (1) Sepsis: (2) Acute cellulitis: (3) COPD with acute exacerbation: (4) Hypoxia: Plan Patient is a 65-year-old female with a past medical history of chronic left lower extremity wound, COPD, factor V Leiden, HTN. Patient uses 2L at bedtime oxygen. She presented due to several days of illness including fever, fatigue, chills, and poor appetite that began on last week. CXR shows possible left midlung pneumonia however early in patient's lower extremity wound with increasing erythema and drainage during wound VAC change on Thursday. Patient is meeting SIRS criteria with white count 12.18, HR 118, respiratory rate 25. She also has a COPD exacerbation. #sepsis/cellulitis- suspected to be 2/2 acute cellulitis of chronic wound. CXR concerning for possible early PNA however asymptomatic and procalcitonin negative. Lactate 0.9. + SIRS: WBC 12.18, tachycardic (HR 118), tachypnea (RR 25) with chronic wounds with wound VAC however acutely worsened. S/p vascular surgery in March/April, femoral-tibial bypass - Sepsis fluid bolus for ideal body weight = 1431.60; given 1L NSS in ED - Continue fluid resuscitation with 500 mL NSS bolus, promote oral hydration Wound care consulted, wound VAC changes MW (any change 05/24) - wound cultures ordered no previous cultures on file - coverage with Zosyn and vancomycin - vascular surgery consulted - blood cultures pending - trend CBC #COPD exacerbation/hypoxia - with cough and brown sputum production, expiratory wheezing in ED. O2 trending in mid 80s on room air in ED, currently on 3L NC. - biofire pending - Continue home inhalers - Continue with azithromycin - sputum cultures ordered - Solu-Medrol 40 Q8H (received 80m IV in ED) - duonebs, flutter valve QID, incentive spirometry, Mucinex - Promote oral hydration - oxy prn for O2 goal 88-92% - wean oxygen as tolerated #Elevated troponin troponin 14.5, denies chest pain. EKG without ischemic changes. Electrolytes stable. Suspect secondary to demand ischemia with sepsis above. Repeat troponin with a.m. labs Telemetry monitoring #hyponatremia - Na 134, suspect hypotonic 2/2 poor PO intake for several days with acute illness. - UA ordered - NSS as above - trend BMP #tobacco use 1/2 pack/day cigarettes. He declines need for nicotine patch at this time. Encourage smoking cessation #HTN - continue amlodipine #Factor V Leiden - continue Xarelto VTE ppx: continue home Xarelto, history of factor V Leiden Dispo: PCU Admission and Anticipated Discharge Date Admission Date: 05/24/25 History of Present Illness Chief Complaint: illness Primary Care Provider: Vivian Suarez DO Patient is a 65-year-old female with a past medical history of chronic left lower extremity wound, COPD, factor V Leiden, HTN. Patient uses 2L at bedtime oxygen. She presented due to several days of illness including fever, fatigue, chills, and poor appetite that began on last week. CXR shows possible left midlung pneumonia however early in patient's lower extremity wound with increasing erythema and drainage during wound VAC change on Thursday. Patient is meeting SIRS criteria with white count 12.18, HR 118, respiratory rate 25. She also has a COPD exacerbation. Patient seen at bedside. She stated last week she started not feeling well with fatigue, chills, poor appetite and a fever. Her fever on Thursday was 101.2 F. She has not taken any of her home medications since due to not feeling well. She stated she has a cough however it is chronic and unchanged, this morning she has been coughing up brown sputum which is typically clear. She does have expiratory wheezing on physical exam. She denies any sick contacts. She stated that when she had her wound VAC changed on Thursday (gets changed every Thursday, Thursday, Thursday), there was an increase in redness and drainage from the wound as well as swelling. She denies any increase in pain. She denies any chest pain, shortness of breath, vomiting, diarrhea. She does feel nauseous and with heartburn at bedside. She continues to smoke one half1/2 pack of cigarettes per day since she was about 11 years old. Denies significant alcohol use. Wishes to be full code. Allergies Allergy/AdvReac Type Severity Reaction Status Date / Time latex Allergy Mild Localized Verified 05/09/25 09:19 Redness escitalopram AdvReac Severe Lethargy Verified 05/09/25 09:19 aspirin AdvReac Intermediate Abdominal Verified 05/09/25 09:19 Pain Ksnnoau-[id number]-[id number] Reductase AdvReac Intermediate Muscle Pain Verified 05/09/25 09:19 Inhibitor Home Medications Medication Instructions Recorded Confirmed Type amlodipine 5 mg tablet (Norvasc) 5 mg PO HS 02/04/25 05/24/25 History ibuprofen 200 mg tablet 200 mg PO Q6H PRN Pain 02/04/25 05/24/25 History tiotropium bromide 18 mcg capsule 1 cap inhalation QAM 02/04/25 05/09/25 History with inhalation device (Spiriva with HandiHaler) Oxygen Home #1 ea 02/16/25 05/09/25 Rx loratadine 10 mg tablet (Claritin) 10 mg PO QAM PRN Allergy Symptoms 02/16/25 05/24/25 History albuterol sulfate 90 mcg/actuation 1 inh inhalation Q6H PRN Shortness 04/07/25 05/24/25 History aerosol inhaler Of Breath Or Wheezing oxycodone-acetaminophen 5 mg-325 1 - 2 tab PO Q4H PRN Pain 04/07/25 05/24/25 History mg tablet (Percocet) rivaroxaban 2.5 mg tablet (Xarelto) 2.5 mg PO BID 04/10/25 05/24/25 History Portable Oxygen #1 ea 05/09/25 05/09/25 Rx Oxygen Home #1 ea 05/11/25 Rx fluticasone 500 mcg-salmeterol 50 1 inh inhalation BID #60 ea 05/15/25 05/24/25 Rx mcg/dose blistr powdr for inhalation (Advair Diskus) Past Med/Surg History Problem List (Updated 05/24/25 @ 15:22 by Nancy Barton PA-C) COPD with acute exacerbation Acute cellulitis Sepsis Hypoxia Wound infection following procedure Peripheral vascular disease Microscopic hematuria Bronchiectasis Pulmonary nodule COPD with hypoxia (Acute) Medical History AAA (abdominal aortic aneurysm) 3 cm infrarenal Chronic cough COPD Claustrophobia severe COPD (chronic obstructive pulmonary disease) uses res inh "off and on" Dyslipidemia Factor 5 Leiden mutation, heterozygous BRANT (generalized anxiety disorder) cannot tolerate meds for this, manages on own History of COVID-20 May 2022 HTN (hypertension) Hx of hematuria pt denies at this time Hx of ischemic right MCA stroke Oct 2015 > does have slight reading difficulty since then, possibly related to Factor 5 dx shortly after Leg wound, left s/p femoral-tibial bypass - reason for procedure 04/10/25 On home oxygen therapy 1.5-2.0 LPM at HS PONV (postoperative nausea and vomiting) Pulmonary nodule Tobacco abuse Surgical History H/O tubal ligation History of colonoscopy History of dental surgery History of tooth extraction Upper/Lower Dentures - only wears upper S/P endometrial ablation Status post femorotibial bypass (03/01/25) Family History Other Diabetes Hypertension Social History Smoking Status: Current some day smoker Tobacco Type: Cigarettes packs per day: 1; Cigarettes Per Day: 1 pack; Second Hand Exposure: No; Do You Dip or Chew Tobacco: No; Hx Alcohol Use: Yes Alcohol type: hard liquor Alcohol Intake Frequency: Monthly or Less Hx Substance Use: No Preferred Language: Macedonian Communication Ability: Effective Noodle Maker Required: No Beliefs That Will Affect Care: None marital status: Single Current Living Situation: Alone Feels Safe at Home: Yes Assistive Devices: Oxygen - at Night and Walker Review of Systems Review of Systems: See HPI Physical Exam Physical Exam: The patient is awake, alert and oriented 3, well developed and well nourished, normocephalic and atraumatic, in no acute distress. Non-toxic appearing. HEENT- EOMI, mucous membranes dry. Hearing grossly intact. Heart-normal S1 and S2. No murmurs, rubs or gallops. Lungs- bilateral expiratory wheezing, no respiratory distress, no accessory muscle use. Abdomen-normal bowel sounds and soft. No ascites noted. Non-tender. Extremities- no clubbing, cyanosis, or edema. left lower extremity with wound VAC in place, mild surrounding erythema. Rheumatologic-normal range of motion. Psychiatric-normal affect. Results & Data Results & Data Vital Signs (Past 12 Hours) Vital Signs Temp Pulse Pulse Resp BP BP Pulse Ox 05/24/25 14:30 101 H 26 H 133/79 93 07/23/25 14:15 105 H 25 H 165/84 H 92 05/24/25 14:12 107 H 21 96 05/24/25 14:00 105 H 25 H 141/99 H 93 05/24/25 13:51 105 H 17 92 05/24/25 13:45 103 H 17 139/84 91 05/24/25 13:30 102 H 21 138/78 100 05/24/25 13:21 101 H 20 95 05/24/25 13:15 94 H 18 133/73 99 05/24/25 13:06 91 05/24/25 12:47 97 H 05/24/25 12:44 118 H 20 112/75 95 05/24/25 12:30 95 H 20 120/74 98 05/24/25 12:05 37.3 C 104 H 20 118/82 90 O2 Del Method O2 Flow Rate 05/24/25 14:30 Nasal Cannula 3 05/24/25 14:15 Nasal Cannula 3 05/24/25 14:12 05/24/25 14:00 Nasal Cannula 3 05/24/25 13:51 Nasal Cannula 3 05/24/25 13:45 Nasal Cannula 3 05/24/25 13:30 Nasal Cannula 3 05/24/25 13:21 Nasal Cannula 3 05/24/25 13:15 Nasal Cannula 3 05/24/25 13:06 Nasal Cannula 3 05/24/25 12:47 05/24/25 12:44 Nasal Cannula 3 05/24/25 12:30 Nasal Cannula 3 05/24/25 12:05 Room Air Laboratory Results Reviewed CBC, CMP magnesium, troponin, procalcitonin Diagnostic Findings reviewed CXR Medications Administered EDRocephin 2G IV, 1L NSS bolus, levo albuterol nebulizer, Solu-Medrol 80 Mg IV, azithromycin 500 Mg p.o. AdmissionPepcid 20 Mg IV ECG Additional Comments: NSR Rate 98 QTc 446 Code Status & VTE Plan Code Status full code VTE Prophylaxis Plan VTE Prophylaxis will be ordered: Yes Supervising Physician Co-Signing Physician Notes The patient was not seen by me. The chart was reviewed. Case discussed with NEREYDA Aguilar. Agree with assessment and plan PG Care Time/CCT Total # of Minutes Spent Total Time Spent with Patient: Total time spent is greater than 50% in coordination of care (as documented) at patient's floor/unit and/or counseling patient: Coding Level of Care Code 94236 INT INP/OBS CARE MIN Diagnoses Sepsis A41.9 Acute cellulitis L03.90 COPD with acute exacerbation J44.1 Hypoxia R09.02
[2025-05-24] MEDS ORDERED: VANCOMYCIN CONSULT ACTIVE PRN ×2 (15:04→16:45)
[2025-05-24 15:27] LABS: Appearance Urine Clear (Clear); Bacteria Urine Automated 1+ (None Seen); Glucose Urine UA Negative (Negative)
[2025-05-24] MEDS: SODIUM CHLORIDE 0.9% 500 ML IV ONE (15:34)
[2025-05-24] MEDS: FAMOTIDINE 20MG IV PUSH 20 MG/5 ML SYR IV STA (15:35)
[2025-05-24] MEDS: PIPERACILLIN/TAZOBACTAM 4.5 GM/100 ML BAG IV STA (15:37)
[2025-05-24 15:43] LABS: Chlamydia pneumoniae PCR Not Detected (NotDetected); Coronavirus 229E PCR Not Detected (NotDetected); Coronavirus CoV-2 (COVID19)PCR Not Detected (NotDetected); Coronavirus HKU1 PCR Not Detected (NotDetected); Coronavirus NL63 PCR Not Detected (NotDetected); Coronavirus OC43PCR Not Detected (NotDetected); Human Metapneumovirus PCR Not Detected (NotDetected); Parainfluenza Virus 1 PCR Not Detected (NotDetected); Parainfluenza Virus 2 PCR Not Detected (NotDetected); Parainfluenza Virus 3 PCR Not Detected (NotDetected); Parainfluenza Virus 4 PCR Not Detected (NotDetected); Respiratory Syncytial VirusPCR Not Detected (NotDetected); Rhinovirus/Enterovirus PCR Not Detected (NotDetected)
[2025-05-24] MEDS: VANCOMYCIN HCL 2,000 MG in SODIUM CHLORIDE 0.9% 500 ML IV ONE (16:20)
[2025-05-24] MEDS ORDERED: MELATONIN 3 MG TAB PO PRN (16:45)
[2025-05-24] MEDS ORDERED: ACETAMINOPHEN 325 MG TAB PO PRN (16:45)
[2025-05-24] MEDS ORDERED: BENZONATATE 100 MG CAPSULE PO PRN (16:45)
[2025-05-24] MEDS ORDERED: ALBUT/IPRATROP 3MG/0.5MG NEB 3 ML VIAL NEB PRN (16:45)
[2025-05-24] MEDS ORDERED: DOCUSATE SODIUM 100 MG CAP PO PRN (16:45)
[2025-05-24] MEDS: ALBUT/IPRATROP 3MG/0.5MG NEB 3 ML VIAL NEB SCH (20:28)
[2025-05-24] MEDS: PIPERACILLIN/TAZOBACTAM 4.5 GM/100 ML BAG IV SCH (20:36)
[2025-05-24] MEDS: guaiFENesin 600 MG TABCR PO SCH (20:39)
[2025-05-24] MEDS: RIVAROXABAN 2.5 MG TAB PO SCH (20:40)
[2025-05-24] MEDS ORDERED: VANCOMYCIN HCL 1,250 MG in SODIUM CHLORIDE 0.9% 250 ML IV SCH (23:00)
[2025-05-25] MEDS: IBUPROFEN 200 MG TAB PO PRN (01:49)
[2025-05-25 05:58] LABS: Hematocrit (blood only) 38.7 % (37.0-47.0); Hemoglobin 12.5 g/dl (12.0-16.0); Immature Granulocytes # (auto) 0.07 K/uL (0.01-0.20); Immature Granulocytes % (auto) 0.7 %; Mean Corpuscular Hemoglobin 30.6 pg (25.0-34.0); Mean Corpuscular Volume 94.6 fL (80.0-100.0); Platelet Count 143 K/uL (130-400); RDW Standard Deviation 46.8 fL (36.4-46.3); Red Blood Count 4.09 M/uL (4.20-5.40); White Blood Count 9.78 K/ul (4.8-10.8)
[2025-05-25 06:18] LABS: Anion Gap 6.0 (3-11); Blood Urea Nitrogen 23.0 mg/dl (6-23); Calcium 8.8 mg/dl (8.6-10.3); Carbon Dioxide 26.0 mmol/L (21-32); Chloride 105.0 mmol/L (98-107); Creatinine Clr Calc Pharmacy 68.1 ml/min; Glucose 205.0 mg/dl (70-99(Fasting)); Magnesium 2.4 mg/dl (1.7-2.4); Potassium 3.8 mmol/L (3.5-5.1); Sodium 137.0 mmol/L (136-145)
[2025-05-25] MEDS ORDERED: PIPERACILLIN/TAZOBACTAM 4.5 GM/100 ML BAG IV SCH (08:30)
[2025-05-25] MEDS: MoRPHine SULFATE 2 MG/ML CARP IV PRN (10:45)
[2025-05-25] MEDS: UMECLIDINIUM BROMIDE 62.5MCG/BLISTER 7 PUFFS/INHALER INH SCH (10:52)
[2025-05-25] MEDS: FLUTICASONE/VILANTEROL 200/25MCG 14 PUFFS/INHALER INH SCH (10:52)
[2025-05-25] MEDS: VANCOMYCIN HCL 1,500 MG in SODIUM CHLORIDE 0.9% 500 ML IV SCH (10:56)
[2025-05-25] MEDS ORDERED: AZITHROMYCIN 500 MG/255 ML BAG IV SCH (14:00)
--- NOTE | 2025-05-25 14:21 | Pharmacy Report ---
Pharmacy PK ABX Note - Date of Service May 25, 2025 - Assessment and Plan Assessment 65 year old F receiving empiric vancomycin and Zosyn for treatment of sepsis presumed secondary to cellulitis of chronic LLE wound (hx of femoral- tibioperoneal artery bypass in January 2025). Pertinent microbiologic data includes: negative MRSA nasal swab, blood cultures x 2, left leg culture pending. Day # 2 of antimicrobial therapy. Renal function appears to be at/near baseline. Leukocytosis improved overnight (12.2 -> 9.8). Plan Vancomycin * Loading dose: 2000 mg IV x 1 * Maintenance dose: 1500 mg IV every 18 hours * Regimen is predicted to achieve target AUC/AMANDEEP of 400-600 mg/L.hr * Random level ordered for: 02/24/25 Pharmacy will continue to follow and will adjust dose/frequency as necessary. Thank you. Pharmacy has transitioned to AUC monitoring for vancomycin. AUC/AMANDEEP is the preferred PK/PD target and is associated with decreased risk of nephrotoxicity compared to traditional trough targets.
--- NOTE | 2025-05-25 16:15 | Hospitalist Progress Note ---
Date of Service May 25, 2025 Assessment & Plan (1) Sepsis: Plan: Present on admission. Currently afebrile. Continue to treat left lower extremity infection (2) Acute cellulitis: Plan: Involving the left lower extremity below the knee, which developed after recent left femoraltibial bypass and late January of this year. Currently on intravenous Zosyn and vancomycin (3) COPD with acute exacerbation: Plan: Improved with parenteral steroid therapy. Will switch today, May 25, to oral prednisone. Continue nebulizer treatments. (4) Hypoxia: Plan: Mild on admission. Now resolved. She is on room air (5) Factor V Leiden mutation: Plan: Currently on Xarelto therapy. Xarelto placed on hold since she probably will need debridement of the left leg wound Plan To be determined Admission and Anticipated Discharge Date Admission Date: May 24, 2025 Subjective Alert and oriented. Afebrile. No complaints. Vascular surgery consultation remains pending. Continue Zosyn and vancomycin for now. MRSA swab is negative however. Will switch parenteral Solu-Medrol to oral prednisone. The left leg wound probably needs debridement. Xarelto placed on hold. Review of Systems 2 Review of Systems: Constitutionalno fever or chills ENTno blurred vision, no double vision, no epistaxis, no sore throat Respiratoryno cough, no wheezing, no shortness of breath Cardiacno palpitations, no chest pain, no syncope Carleen nausea, vomiting, diarrhea, melena, hematochezia GUno urinary retention, no urinary incontinence, no dysuria, no hematuria Musculoskeletalleft leg pain below the knee in the surgical area from the infection and open areas rather than ischemia. No muscle tenderness Skinno bruising, no rashes, no pruritus Neurono isolated weakness, no paresthesia, no weakness Psychno depression, no anxiety Physical Exam 2 Physical Exam: General-alert and oriented x3, no fever, no chills HEENT-head atraumatic and normocephalic, pupils equal and reactive to light, extraocular muscles intact Neck-no lymphadenopathy or thyromegaly, trachea midline Chest-clear to auscultation. No rales, wheezing or rhonchi Cardiac-regular rate and rhythm, normal S1 and S2 Abdomen-normal bowel sounds, no hepatosplenomegaly Extremities-open wound left lower extremity below the knee in the surgical area with purulent material. The left foot does not appear to be ischemic Neuro-cranial nerves II through XII intact, motor and sensory function within normal limits, strength symmetrical, no focal deficits Psych-normal affect, normal mood Results & Data Results & Data Vital Signs (Past 12 Hours) Vital Signs Temp Pulse Pulse Resp BP Pulse Ox O2 Del Method 05/25/25 14:40 94 H 05/25/25 11:52 36.9 C 81 18 109/79 91 Room Air 05/25/25 08:22 Room Air 05/25/25 08:19 93 H 05/25/25 07:43 36.4 C L 83 19 98/62 L 93 Room Air 05/25/25 07:08 77 18 91 Room Air Laboratory Results 05/25/25 05:21 05/25/25 05:21 PG Care Time/CCT Total # of Minutes Spent Total Time Spent with Patient: Total time spent is greater than 50% in coordination of care (as documented) at patient's floor/unit and/or counseling patient: Coding Level of Care Code 90000 SUB INP/OBS CARE 3/50MIN Diagnoses Sepsis A41.9 Acute cellulitis L03.90 COPD with acute exacerbation J44.1 Hypoxia R09.02 Factor V Leiden mutation D68.51
--- NOTE | 2025-05-25 17:25 | Vascular Medicine Consultation ---
Date of Consultation May 25, 2025 Assessment & Plan (1) Peripheral vascular disease: Non healing left wound from prior saphenous vein harvest. I don't think this wound will do well with a VAC at this point. It would need debridement in my opinion. Would be worth interrogating the graft with either ultrasound or CT to determine if it is patent, as this will have significant prognostic value in determining the ability of this wound to heal. I discussed all of this with the patient. Dr. Arias is out of town until Thursday. I do not see a need for acute surgical intervention and she would prefer to wait until his return to evaluate options at that point. Available as needed, but will sign off for now. Thank you. History of Present Illness Reason for Consultation: Postoperative wound left lower extremity, s/p left femoral-tibial bypass 03/01/25 Attending Physician: Ruben Holt MD History of Present Illness Asked to evaluate this 65 year old female with a left leg wound. Seen along with Sheryl Jackson from wound care. Pictures of wound are referenced in the chart. Patient underwent left femoral to tibial artery bypass graft 03/01/25. Underwent debridement of left leg wound with placement of wound VAC 04/10/25. Has been managed outpatient since then. Now has significant areas of dry eschar/slough without significant granulation tissue primarily in the calf wound. No evidence of active sepsis or advanced infection. Nonhealing wound appears to be consistent with prior saphenous vein harvest. Allergies Allergy/AdvReac Type Severity Reaction Status Date / Time latex Allergy Mild Localized Verified 05/09/25 09:19 Redness escitalopram AdvReac Severe Lethargy Verified 05/09/25 09:19 aspirin AdvReac Intermediate Abdominal Verified 05/09/25 09:19 Pain Bjcnshq-[id number]-GmB Reductase AdvReac Intermediate Muscle Pain Verified 05/09/25 09:19 Inhibitor Home Medications Medication Instructions Recorded Confirmed Type amlodipine 5 mg tablet (Norvasc) 5 mg PO HS 02/04/25 05/24/25 History ibuprofen 200 mg tablet 200 mg PO Q6H PRN Pain 02/04/25 05/24/25 History tiotropium bromide 18 mcg capsule 1 cap inhalation QAM 02/04/25 05/09/25 History with inhalation device (Spiriva with HandiHaler) Oxygen Home #1 ea 02/16/25 05/09/25 Rx loratadine 10 mg tablet (Claritin) 10 mg PO QAM PRN Allergy Symptoms 02/16/25 05/24/25 History albuterol sulfate 90 mcg/actuation 1 inh inhalation Q6H PRN Shortness 04/07/25 05/24/25 History aerosol inhaler Of Breath Or Wheezing oxycodone-acetaminophen 5 mg-325 1 - 2 tab PO Q4H PRN Pain 04/07/25 05/24/25 History mg tablet (Percocet) rivaroxaban 2.5 mg tablet (Xarelto) 2.5 mg PO BID 04/10/25 05/24/25 History Portable Oxygen #1 ea 05/09/25 05/09/25 Rx Oxygen Home #1 ea 05/11/25 Rx fluticasone 500 mcg-salmeterol 50 1 inh inhalation BID #60 ea 05/15/25 05/24/25 Rx mcg/dose blistr powdr for inhalation (Advair Diskus) Patient History Medical History AAA (abdominal aortic aneurysm) 3 cm infrarenal Chronic cough COPD Claustrophobia severe COPD (chronic obstructive pulmonary disease) uses res inh "off and on" Dyslipidemia Factor 5 Leiden mutation, heterozygous BRANT (generalized anxiety disorder) cannot tolerate meds for this, manages on own History of COVID-20 May 2022 HTN (hypertension) Hx of hematuria pt denies at this time Hx of ischemic right MCA stroke Oct 2015 > does have slight reading difficulty since then, possibly related to Factor 5 dx shortly after Leg wound, left s/p femoral-tibial bypass - reason for procedure 04/10/25 On home oxygen therapy 1.5-2.0 LPM at HS PONV (postoperative nausea and vomiting) Pulmonary nodule Tobacco abuse Surgical History H/O tubal ligation History of colonoscopy History of dental surgery History of tooth extraction Upper/Lower Dentures - only wears upper S/P endometrial ablation Status post femorotibial bypass (03/01/25) Family History Other Diabetes Hypertension Social History Smoking Status: Current every day smoker Tobacco Type: Cigarettes packs per day: 1; Cigarettes Per Day: 1/2 pack per day; Second Hand Exposure: No; Do You Dip or Chew Tobacco: No; Hx Alcohol Use: Yes Alcohol type: hard liquor Alcohol Intake Frequency: Monthly or Less Hx Substance Use: No Preferred Language: Serbian Communication Ability: Effective Field Kiln Burner Required: No Beliefs That Will Affect Care: None marital status: Single Current Living Situation: Alone Other Information That Helps Us Care for You: No Feels Safe at Home: Yes Safety Concerns: Feels Safe At This Time Assistive Devices: Oxygen - at Night, Walker and Other Physical Exam Physical Exam: Awake/alert/comfortable. Wounds not examined at patient request. Photographs reviewed from earlier today. Results & Data Vital Signs (Past 12 Hours) Vital Signs Temp Pulse Pulse Resp BP Pulse Ox O2 Del Method 05/25/25 16:59 36.5 C 93 H 19 124/75 91 Room Air 05/25/25 14:40 94 H 05/25/25 11:52 36.9 C 81 18 109/79 91 Room Air 05/25/25 08:22 Room Air 05/25/25 08:19 93 H 05/25/25 07:43 36.4 C L 83 19 98/62 L 93 Room Air 05/25/25 07:08 77 18 91 Room Air PG Care Time/CCT Total # of Minutes Spent Total Time Spent with Patient: Total time spent is greater than 50% in coordination of care (as documented) at patient's floor/unit and/or counseling patient: Coding Level of Care Code 11385 INT INP/OBS CARE 2/55MIN Diagnoses Peripheral vascular disease I73.9
[2025-05-26] MEDS: MoRPHine SULFATE 2 MG/ML CARP IV STA (00:26)
[2025-05-26 05:21] LABS: Hematocrit (blood only) 36.0 % (37.0-47.0); Hemoglobin 11.8 g/dl (12.0-16.0); Immature Granulocytes # (auto) 0.24 K/uL (0.01-0.20); Immature Granulocytes % (auto) 1.3 %; Mean Corpuscular Hemoglobin 31.0 pg (25.0-34.0); Mean Corpuscular Volume 94.5 fL (80.0-100.0); Platelet Count 183 K/uL (130-400); RDW Standard Deviation 46.0 fL (36.4-46.3); Red Blood Count 3.81 M/uL (4.20-5.40); White Blood Count 18.08 K/ul (4.8-10.8)
[2025-05-26] MEDS: VANCOMYCIN LEVEL ONE (05:33)
[2025-05-26] MEDS: CALCIUM CARBONATE 500 MG CHEWABLE TAB PO ONE ×2 (05:35→14:48)
[2025-05-26 05:36] LABS: Anion Gap 7.0 (3-11); Blood Urea Nitrogen 30.0 mg/dl (6-23); Calcium 8.7 mg/dl (8.6-10.3); Carbon Dioxide 24.0 mmol/L (21-32); Chloride 108.0 mmol/L (98-107); Creatinine Clr Calc Pharmacy 68.1 ml/min; Glucose 152.0 mg/dl (70-99(Fasting)); Potassium 4.0 mmol/L (3.5-5.1); Sodium 139.0 mmol/L (136-145)
[2025-05-26] MEDS: VANCOMYCIN HCL 1,500 MG in SODIUM CHLORIDE 0.9% 500 ML IV SCH (05:44)
[2025-05-26] MEDS ORDERED: ALBUT/IPRATROP 3MG/0.5MG NEB 3 ML VIAL NEB PRN (10:22)
[2025-05-26] MEDS: SUCRALFATE 1 GM TAB PO SCH (13:08)
[2025-05-26] MEDS: MoRPHine SULFATE 2 MG/ML CARP IV PRN (13:09)
--- NOTE | 2025-05-26 16:26 | Hospitalist Progress Note ---
Date of Service May 26, 2025 Assessment & Plan (1) Sepsis: Plan: Present on admission. Currently afebrile. Continue to treat left lower extremity infection (2) Acute cellulitis: Plan: Involving the left lower extremity below the knee, which developed after recent left femoraltibial bypass and late January of this year. Cultures are growing gram-negative bacilli. Awaiting final identification and sensitivities. Vancomycin discontinued. Continue Zosyn for now. (3) COPD with acute exacerbation: Plan: Improving. Prednisone tapered down further today, May 26. DuoNebs will be administered on a as needed basis now. (4) Hypoxia: Plan: Mild on admission. Now resolved. She is on room air (5) Factor V Leiden mutation: Plan: Xarelto remains on hold due to upcoming debridement procedure on the left leg. Plan To be determined Admission and Anticipated Discharge Date Admission Date: May 24, 2025 Subjective Alert and oriented. No new problems. She is requesting stronger pain medication for the left lower extremity. She also is having more GERD symptoms. Carafate has been added. Vancomycin discontinued since cultures from the leg are growing gram-negative bacilli and MRSA nasal swab is negative. Ultrasound of the left lower extremity arterial graft is ordered and pending. Prednisone taper down to twice daily dosing and eventually will be weaned off.. Continue intravenous Zosyn for now. Review of Systems 2 Review of Systems: Constitutionalno fever or chills ENTno blurred vision, no double vision, no epistaxis, no sore throat Respiratoryno cough, no wheezing, no shortness of breath Cardiacno palpitations, no chest pain, no syncope Carleen nausea, vomiting, diarrhea, melena, hematochezia GUno urinary retention, no urinary incontinence, no dysuria, no hematuria Musculoskeletalleft leg pain below the knee in the surgical area from the infection and open areas rather than ischemia. No muscle tenderness Skinno bruising, no rashes, no pruritus Neurono isolated weakness, no paresthesia, no weakness Psychno depression, no anxiety Physical Exam 2 Physical Exam: General-alert and oriented x3, no fever, no chills HEENT-head atraumatic and normocephalic, pupils equal and reactive to light, extraocular muscles intact Neck-no lymphadenopathy or thyromegaly, trachea midline Chest-clear to auscultation. No rales, wheezing or rhonchi Cardiac-regular rate and rhythm, normal S1 and S2 Abdomen-normal bowel sounds, no hepatosplenomegaly Extremities-open wound left lower extremity below the knee in the surgical area with purulent material. The left foot does not appear to be ischemic Neuro-cranial nerves II through XII intact, motor and sensory function within normal limits, strength symmetrical, no focal deficits Psych-normal affect, normal mood Results & Data Results & Data Vital Signs (Past 12 Hours) Vital Signs Temp Pulse Pulse Resp BP Pulse Ox O2 Del Method 05/26/25 14:52 73 05/26/25 11:18 36.5 C 64 19 106/66 94 Room Air 05/26/25 10:01 92 H 05/26/25 08:15 Room Air 05/26/25 08:00 36.7 C 81 19 101/41 L 91 Room Air 05/26/25 07:34 84 17 91 Room Air FiO2 05/26/25 14:52 05/26/25 11:18 05/26/25 10:01 05/26/25 08:15 05/26/25 08:00 05/26/25 07:34 21 Laboratory Results 05/26/25 05:02 05/26/25 05:02 PG Care Time/CCT Total # of Minutes Spent Total Time Spent with Patient: Total time spent is greater than 50% in coordination of care (as documented) at patient's floor/unit and/or counseling patient: Coding Level of Care Code 05809 SUB INP/OBS CARE 3/50MIN Diagnoses Sepsis A41.9 Acute cellulitis L03.90 COPD with acute exacerbation J44.1 Hypoxia R09.02 Factor V Leiden mutation D68.51
--- NOTE | 2025-05-26 17:52 | Ultrasound Report ---
EXAM: US arterial duplex LE LT CLINICAL HISTORY: eval patency of left fem-tib bypass graft. TECHNIQUE: Ultrasound examination of the left lower extremity arteries with a bypass graft was performed in real time and duplex. One or more of the following were performed- spectral analysis, resistive index, waveform analysis, and pulsed Doppler. COMPARISON: None. FINDINGS: Vessel Flow Pattern Right Peak Velocity Right (cm/sec) Common Femoral Artery (HOGSHEAD STRIPPER) Cole 168.1 Deep Femoral Artery (DPA) Cole 110.4 Superficial Femoral Artery (SFA) Cole 40.0 Popliteal Artery (POP A) Absent Absent By-pass graft (Prox) Cole 187.0 By-pass Graft (Distal to anastomosis) (Distal) (mid thigh) Turbulant Cole Cole 587.7 184.0 156.3 Dorsalis Pedis Artery (DPA) Cole 29.9 Elevated velocities in the bypass graft reaching upto 588cm/sec distal to the anastomosis. No intraluminal filling defect in the bypass graft. The popliteal artery is completely blocked with no flow. Distal arteries in the calf can not be imaged due to bandages. Additional Findings: Mild soft tissue edema in the entire leg. IMPRESSION: 1. Common femoral artery bypass graft shows markedly elevated velocities reaching up to 588cm/sec distal to the anastomosis concerning for possible stenosis. CTAngiography is advised for further detailed evaluation. 2. Distal arteries of the leg cannot be imaged due to extensive bandages. 3. DPA is normally visualized and showing monophasic flow. 4. Diffuse subcutaneous edema in the leg. 5. Clinical correlation and further evaluation with CTA is advised for detailed description. Electronically signed by Patrick Stovall 05-26-2025 5:52 PM
[2025-05-26] MEDS ORDERED: VANCOMYCIN HCL 1,250 MG in SODIUM CHLORIDE 0.9% 250 ML IV SCH (18:00)
[2025-05-26] MEDS: CALCIUM CARBONATE 500 MG CHEWABLE TAB PO PRN (23:34)
[2025-05-27 06:06] LABS: Hematocrit (blood only) 39.9 % (37.0-47.0); Hemoglobin 13.1 g/dl (12.0-16.0); Immature Granulocytes # (auto) 0.22 K/uL (0.01-0.20); Immature Granulocytes % (auto) 1.6 %; Mean Corpuscular Hemoglobin 30.5 pg (25.0-34.0); Mean Corpuscular Volume 93.0 fL (80.0-100.0); Platelet Count 237 K/uL (130-400); RDW Standard Deviation 45.8 fL (36.4-46.3); Red Blood Count 4.29 M/uL (4.20-5.40); White Blood Count 14.07 K/ul (4.8-10.8)
--- NOTE | 2025-05-27 06:09 | Electrocardiogram Report ---
Test Reason : Blood Pressure : */* mmHG Vent. Rate : 98 BPM Atrial Rate : 98 BPM P-R Int : 128 ms QRS Dur : 80 ms QT Int : 350 ms P-R-T Axes : 85 84 69 degrees QTcB Int : 446 ms Normal sinus rhythm Normal ECG When compared with ECG of 07-Apr-2024 17:04, No significant change was found Confirmed by Myles Enrique ([id number]) on 05/27/2025 6:09:29 AM Referred By: Confirmed By: Myles Enrique
[2025-05-27 06:31] LABS: Anion Gap 7.0 (3-11); Blood Urea Nitrogen 25.0 mg/dl (6-23); Calcium 9.2 mg/dl (8.6-10.3); Carbon Dioxide 28.0 mmol/L (21-32); Chloride 104.0 mmol/L (98-107); Creatinine Clr Calc Pharmacy 68.2 ml/min; Glucose 100.0 mg/dl (70-99(Fasting)); Potassium 4.0 mmol/L (3.5-5.1); Sodium 139.0 mmol/L (136-145)
[2025-05-27] MEDS: OPTIRAY 320 125ml IV ONE (14:52)
--- NOTE | 2025-05-27 15:48 | CT Scan Report ---
CT angiogram left lower extremity with contrast History: Fem-tib graft Comparison: None Technique: CT performed of the extremity with IV contrast. Dose reduction techniques were achieved by using automatic exposure control and/or adjustment of mA and/or kV according to patient size and/or use of iterative reconstruction technique. Findings: There is a left fem-tib bypass graft. There is mild narrowing of the graft at the proximal portion, with a thin focus of atheroma or thrombus extending through the midportion of the proximal lumen on series 4 image 296. The graft appears otherwise patent along its length. There is good flow in the lower extremity trifurcation. The anterior and posterior tibial arteries demonstrate good flow into the foot. The peroneal artery demonstrates some gradual loss of flow at the level of the ankle otherwise without an obstructing lesion, and which may be due to technique or slow flow. The left deep femoral artery is patent. There is flow with scattered moderate stenoses throughout the [place] left superficial femoral artery, which is otherwise occluded distally. The [place] popliteal artery is occluded. No fracture or dislocation. Joint spaces are normally aligned. Lower extremity edema is seen throughout the lower leg. A defect of the skin is seen about the medial aspect of the lower leg. No aggressive osseous lesion. Impression: Patent left tib-fib bypass graft, with mild narrowing at the proximal portion for a short segment, where there is also a thin linear filling defect representing thrombus or atheroma within the lumen. Electronically signed by John Broderick 05-27-2025 3:47 PM
--- NOTE | 2025-05-27 16:15 | Hospitalist Progress Note ---
Date of Service May 27, 2025 Assessment & Plan (1) Sepsis: Plan: Present on admission. Currently afebrile. Continue to treat left lower extremity infection (2) Acute cellulitis: Plan: Involving the left lower extremity below the knee, which developed after recent left femoraltibial bypass and late January of this year. Cultures are growing E. coli sensitive to Zosyn. Vancomycin has been discontinued. (3) COPD with acute exacerbation: Plan: She is back to her baseline.. Prednisone tapered down further on May 26 and will be discontinued on May 28. DuoNebs will be administered on a as needed basis now. (4) Hypoxia: Plan: Mild on admission. Now resolved. She is on room air (5) Factor V Leiden mutation: Plan: Xarelto remains on hold due to upcoming debridement procedure on the left leg. Plan Hopeful discharge to home this coming week after debridement of the left lower extremity completed. Admission and Anticipated Discharge Date Admission Date: May 24, 2025 Subjective Alert and oriented. E. coli has been isolated from the left leg wound. Sensitive to Zosyn. The left leg arterial ultrasound suggested a possible graft anastomotic stenosis. CTA was obtained which reveals only a mild proximal graft stenosis that likely will not need any intervention. Vascular surgery will see her again tomorrow, May 28 for likely scheduling of debridement of the left leg wound. Addition of Carafate has helped with her GI symptoms. Will discontinue prednisone tomorrow, May 28. Review of Systems 2 Review of Systems: Constitutionalno fever or chills ENTno blurred vision, no double vision, no epistaxis, no sore throat Respiratoryno cough, no wheezing, no shortness of breath Cardiacno palpitations, no chest pain, no syncope Carleen nausea, vomiting, diarrhea, melena, hematochezia GUno urinary retention, no urinary incontinence, no dysuria, no hematuria Musculoskeletalleft leg pain below the knee in the surgical area from the infection and open areas rather than ischemia. No muscle tenderness Skinno bruising, no rashes, no pruritus Neurono isolated weakness, no paresthesia, no weakness Psychno depression, no anxiety Physical Exam 2 Physical Exam: General-alert and oriented x3, no fever, no chills HEENT-head atraumatic and normocephalic, pupils equal and reactive to light, extraocular muscles intact Neck-no lymphadenopathy or thyromegaly, trachea midline Chest-clear to auscultation. No rales, wheezing or rhonchi Cardiac-regular rate and rhythm, normal S1 and S2 Abdomen-normal bowel sounds, no hepatosplenomegaly Extremities-open wound left lower extremity below the knee in the surgical area with purulent material. The left foot does not appear to be ischemic Neuro-cranial nerves II through XII intact, motor and sensory function within normal limits, strength symmetrical, no focal deficits Psych-normal affect, normal mood Results & Data Results & Data Vital Signs (Past 12 Hours) Vital Signs Temp Pulse Pulse Resp BP BP Pulse Ox 05/27/25 15:42 37.0 C 86 18 128/76 90 05/27/25 14:13 90 05/27/25 13:45 05/27/25 11:04 36.7 C 91 H 18 138/86 90 05/27/25 09:00 78 05/27/25 07:59 36.3 C L 86 18 126/79 90 O2 Del Method 05/27/25 15:42 Room Air 05/27/25 14:13 05/27/25 13:45 Room Air 05/27/25 11:04 Room Air 05/27/25 09:00 05/27/25 07:59 Room Air Laboratory Results 05/27/25 05:43 05/27/25 05:43 PG Care Time/CCT Total # of Minutes Spent Total Time Spent with Patient: Total time spent is greater than 50% in coordination of care (as documented) at patient's floor/unit and/or counseling patient: Coding Level of Care Code 55946 SUB INP/OBS CARE 3/50MIN Diagnoses Sepsis A41.9 Acute cellulitis L03.90 COPD with acute exacerbation J44.1 Hypoxia R09.02 Factor V Leiden mutation D68.51
[2025-05-28 06:05] LABS: Hematocrit (blood only) 41.0 % (37.0-47.0); Hemoglobin 13.5 g/dl (12.0-16.0); Immature Granulocytes # (auto) 0.42 K/uL (0.01-0.20); Immature Granulocytes % (auto) 2.9 %; Mean Corpuscular Hemoglobin 30.8 pg (25.0-34.0); Mean Corpuscular Volume 93.6 fL (80.0-100.0); Platelet Count 248 K/uL (130-400); RDW Standard Deviation 46.4 fL (36.4-46.3); Red Blood Count 4.38 M/uL (4.20-5.40); White Blood Count 14.44 K/ul (4.8-10.8)
[2025-05-28 06:23] LABS: Anion Gap 9.0 (3-11); Blood Urea Nitrogen 21.0 mg/dl (6-23); Calcium 9.2 mg/dl (8.6-10.3); Carbon Dioxide 30.0 mmol/L (21-32); Chloride 102.0 mmol/L (98-107); Creatinine Clr Calc Pharmacy 62.2 ml/min; Glucose 96.0 mg/dl (70-99(Fasting)); Potassium 4.4 mmol/L (3.5-5.1); Sodium 141.0 mmol/L (136-145)
--- NOTE | 2025-05-28 12:27 | Hospitalist Progress Note ---
Date of Service May 28, 2025 Assessment & Plan (1) Sepsis: Plan: Present on admission. Currently afebrile. Continue to treat left lower extremity infection with Zosyn (2) Acute cellulitis: Plan: Involving the left lower extremity below the knee, which developed after recent left femoraltibial bypass and late January of this year. Cultures are growing E. coli sensitive to Zosyn. Vancomycin has been discontinued. (3) COPD with acute exacerbation: Plan: She is back to her baseline.. Prednisone tapered down further on May 26 and will be discontinued today, May 28. DuoNebs will be administered on a as needed basis now. (4) Hypoxia: Plan: Mild on admission. Now resolved. She is on room air (5) Factor V Leiden mutation: Plan: Xarelto remains on hold due to upcoming debridement procedure on the left leg. Plan Hopeful discharge to home this coming week after debridement of the left lower extremity completed. Admission and Anticipated Discharge Date Admission Date: May 24, 2025 Subjective Alert and oriented. No distress. Fortunately, this CTA of the left leg reveals only a mild stenosis involving the graft which probably will not need any intervention. Prednisone has been down titrated again today, May 28, and eventually will be discontinued. Swab culture of the left leg wound reveals E. coli sensitive to Zosyn. Addition of Carafate has helped her GI symptoms. Review of Systems 2 Review of Systems: Constitutionalno fever or chills ENTno blurred vision, no double vision, no epistaxis, no sore throat Respiratoryno cough, no wheezing, no shortness of breath Cardiacno palpitations, no chest pain, no syncope Carleen nausea, vomiting, diarrhea, melena, hematochezia GUno urinary retention, no urinary incontinence, no dysuria, no hematuria Musculoskeletalleft leg pain below the knee in the surgical area from the infection and open areas rather than ischemia. No muscle tenderness Skinno bruising, no rashes, no pruritus Neurono isolated weakness, no paresthesia, no weakness Psychno depression, no anxiety Physical Exam 2 Physical Exam: General-alert and oriented x3, no fever, no chills HEENT-head atraumatic and normocephalic, pupils equal and reactive to light, extraocular muscles intact Neck-no lymphadenopathy or thyromegaly, trachea midline Chest-clear to auscultation. No rales, wheezing or rhonchi Cardiac-regular rate and rhythm, normal S1 and S2 Abdomen-normal bowel sounds, no hepatosplenomegaly Extremities-open wound left lower extremity below the knee in the surgical area with purulent material. The left foot does not appear to be ischemic Neuro-cranial nerves II through XII intact, motor and sensory function within normal limits, strength symmetrical, no focal deficits Psych-normal affect, normal mood Results & Data Results & Data Vital Signs (Past 12 Hours) Vital Signs Temp Pulse Pulse Resp BP BP Pulse Ox 05/28/25 11:34 05/28/25 11:16 36.6 C 80 18 142/85 H 90 05/28/25 07:59 36.6 C 80 19 161/85 H 90 05/28/25 07:08 92 H 05/28/25 03:03 36.4 C L 93 H 20 137/81 90 O2 Del Method 05/28/25 11:34 Room Air 05/28/25 11:16 Room Air 05/28/25 07:59 Room Air 05/28/25 07:08 05/28/25 03:03 Room Air Laboratory Results 05/28/25 05:35 05/28/25 05:35 PG Care Time/CCT Total # of Minutes Spent Total Time Spent with Patient: Total time spent is greater than 50% in coordination of care (as documented) at patient's floor/unit and/or counseling patient: Coding Level of Care Code 14881 SUB INP/OBS CARE MIN Diagnoses Sepsis A41.9 Acute cellulitis L03.90 COPD with acute exacerbation J44.1 Hypoxia R09.02 Factor V Leiden mutation D68.51
[2025-05-29] MEDS: ACETAMINOPHEN 325 MG TAB PO PRN (04:20)
--- NOTE | 2025-05-29 14:13 | Consultation ---
Date of Consultation May 29, 2025 Assessment & Plan (1) Bypass graft stenosis: Recommend left lower extremity arteriogram and possible intervention. I have discussed the risks options and benefits of the procedure with the patient. The patient understands the risks options and benefits and agrees to the procedure. (2) Wound infection following procedure: Recommend debridement of the wound. I have discussed the risks options and benefits of the procedure with the patient. The patient understands the risks options and benefits and agrees to the procedure. Both are scheduled for tomorrow. Thank you very much for letting us participate in the care of this patient. History of Present Illness Reason for Consultation: Open left leg wound Attending Physician: Luciano Lafleur History of Present Illness This is a 65yo female who recently underwent a left femoral to tibial bypass for limb salvage. She later developed dehiscence of the calf harvest site incision. On usn she was found to have stenosis of the proximal end of the bypass. Allergies Allergy/AdvReac Type Severity Reaction Status Date / Time latex Allergy Mild Localized Verified 05/09/25 09:19 Redness escitalopram AdvReac Severe Lethargy Verified 05/09/25 09:19 aspirin AdvReac Intermediate Abdominal Verified 05/09/25 09:19 Pain Ayncyvl-EJU-CuJ Reductase AdvReac Intermediate Muscle Pain Verified 05/09/25 09:19 Inhibitor Home Medications Medication Instructions Recorded Confirmed Type amlodipine 5 mg tablet (Norvasc) 5 mg PO HS 02/04/25 05/24/25 History ibuprofen 200 mg tablet 200 mg PO Q6H PRN Pain 02/04/25 05/24/25 History tiotropium bromide 18 mcg capsule 1 cap inhalation QAM 02/04/25 05/09/25 History with inhalation device (Spiriva with HandiHaler) Oxygen Home #1 ea 02/16/25 05/09/25 Rx loratadine 10 mg tablet (Claritin) 10 mg PO QAM PRN Allergy Symptoms 02/16/25 05/24/25 History albuterol sulfate 90 mcg/actuation 1 inh inhalation Q6H PRN Shortness 04/07/25 05/24/25 History aerosol inhaler Of Breath Or Wheezing oxycodone-acetaminophen 5 mg-325 1 - 2 tab PO Q4H PRN Pain 04/07/25 05/24/25 History mg tablet (Percocet) rivaroxaban 2.5 mg tablet (Xarelto) 2.5 mg PO BID 04/10/25 05/24/25 History Portable Oxygen #1 ea 05/09/25 05/09/25 Rx Oxygen Home #1 ea 05/11/25 Rx fluticasone 500 mcg-salmeterol 50 1 inh inhalation BID #60 ea 05/15/25 05/24/25 Rx mcg/dose blistr powdr for inhalation (Advair Diskus) Patient History Medical History Chronic cough COPD Hx of hematuria pt denies at this time PONV (postoperative nausea and vomiting) Leg wound, left s/p femoral-tibial bypass - reason for procedure 04/10/25 AAA (abdominal aortic aneurysm) 3 cm infrarenal Pulmonary nodule Claustrophobia severe BRANT (generalized anxiety disorder) cannot tolerate meds for this, manages on own History of COVID-20 May 2022 Factor 5 Leiden mutation, heterozygous On home oxygen therapy 1.5-2.0 LPM at HS Tobacco abuse Hx of ischemic right MCA stroke Oct 2015 > does have slight reading difficulty since then, possibly related to Factor 5 dx shortly after HTN (hypertension) Dyslipidemia COPD (chronic obstructive pulmonary disease) uses res inh "off and on" Surgical History History of tooth extraction Upper/Lower Dentures - only wears upper Status post femorotibial bypass (03/01/25) History of colonoscopy S/P endometrial ablation H/O tubal ligation History of dental surgery Family History Other Diabetes Hypertension Social History Smoking Status: Current every day smoker Tobacco Type: Cigarettes packs per day: 1; Cigarettes Per Day: 1/2 pack per day; Second Hand Exposure: No; Do You Dip or Chew Tobacco: No; Hx Alcohol Use: Yes Alcohol type: hard liquor Alcohol Intake Frequency: Monthly or Less Hx Substance Use: No Preferred Language: [place] Communication Ability: Effective Color Finisher Required: No Beliefs That Will Affect Care: None marital status: Single Current Living Situation: Alone Other Information That Helps Us Care for You: No Feels Safe at Home: Yes Safety Concerns: Feels Safe At This Time Assistive Devices: Oxygen - at Night, Walker and Other Review of Systems Review of Systems: All systems reviewed & are unremarkable except as noted in HPI & below Physical Exam Constitutional: WD/WN, vitals as above Respiratory: normal respiratory effort, lungs clear to auscultation Cardiovascular: RRR, no murmur, no edema Gastrointestinal (Abdomen): Inspection/Auscultation: abdomen normal to inspection; abdomen not distended Percussion/Palpation: abdomen soft Skin: + incision (open left calf wound with gr anulation tissue and slough) Neurologic: CN's II-XI intact bilaterally and moves all extremities Psychiatric: A+Ox3, euthymic affect Results & Data Vital Signs (Past 12 Hours) Vital Signs Temp Pulse Pulse Resp BP Pulse Ox O2 Del Method 05/29/25 12:00 36.3 C L 82 20 121/78 92 Room Air 05/29/25 07:10 36.4 C L 77 20 132/81 92 Room Air 05/29/25 07:00 67 05/29/25 04:54 36.3 C L 87 18 176/97 H 92 Room Air 05/29/25 04:38 90
--- NOTE | 2025-05-29 22:51 | Hospitalist Progress Note ---
Date of Service May 29, 2025 Assessment & Plan (1) Sepsis: Plan: Present on admission. Currently afebrile. Continue to treat left lower extremity infection with Zosyn (2) Acute cellulitis: Plan: Involving the left lower extremity below the knee, which developed after recent left femoraltibial bypass and late January of this year. Cultures are growing E. coli sensitive to Zosyn. Vancomycin has been discontinued. Awaiting debridement by Dr. Medrano. This will likely be completed on 05/30 (3) COPD with acute exacerbation: Plan: She is back to her baseline.. Prednisone tapered down further on May 26 and will be discontinued today, May 28. DuoNebs will be administered on a as needed basis now. (4) Hypoxia: Plan: Mild on admission. Now resolved. She is on room air (5) Factor V Leiden mutation: Plan: Xarelto remains on hold due to upcoming debridement procedure on the left leg. Plan Hopeful discharge to home this coming week after debridement of the left lower extremity completed. Admission and Anticipated Discharge Date Admission Date: May 24, 2025 Subjective 65 yo female reports no new symptoms. Physical Exam Physical Exam: General-alert and oriented x3, no fever, no chills HEENT-head atraumatic and normocephalic, pupils equal and reactive to light, extraocular muscles intact Neck-no lymphadenopathy or thyromegaly, trachea midline Chest-clear to auscultation. No rales, wheezing or rhonchi Cardiac-regular rate and rhythm, normal S1 and S2 Abdomen-normal bowel sounds, no hepatosplenomegaly Results & Data Results & Data Vital Signs (Past 12 Hours) Vital Signs Temp Pulse Pulse Resp BP Pulse Ox O2 Del Method 05/29/25 20:19 36.8 C 65 18 127/78 97 Room Air 05/29/25 15:42 36.6 C 92 H 20 115/73 93 Room Air 05/29/25 13:00 89 05/29/25 12:00 36.3 C L 82 20 121/78 92 Room Air PG Care Time/CCT Total # of Minutes Spent Total Time Spent with Patient: Total time spent is greater than 50% in coordination of care (as documented) at patient's floor/unit and/or counseling patient: Coding Level of Care Code 67662 SUB INP/OBS CARE 3/50MIN Diagnoses Sepsis A41.9; R65.20; J96.01 Acute respiratory failure type: with hypoxia Sepsis acute organ dysfunction status: with acute organ dysfunction Sepsis type: sepsis due to unspecified organism Severe sepsis acute organ dysfunction type: acute respiratory failure Severe sepsis shock status: without septic shock Acute cellulitis L03.90 COPD with acute exacerbation J44.1 Hypoxia R09.02 Factor V Leiden mutation D68.51 Time Spent (min) 50 Comment chart review (1) Sepsis Acute respiratory failure type: with hypoxia Sepsis acute organ dysfunction status: with acute organ dysfunction Sepsis type: sepsis due to unspecified organism Severe sepsis acute organ dysfunction type: acute respiratory failure Severe sepsis shock status: without septic shock Qualified Code(s): A41.9 - Sepsis, unspecified organism; R65.20 - Severe sepsis without septic shock; J96.01 - Acute respiratory failure with hypoxia
[2025-05-30 06:15] LABS: Hematocrit (blood only) 43.1 % (37.0-47.0); Hemoglobin 13.7 g/dl (12.0-16.0); Mean Corpuscular Hemoglobin 30.4 pg (25.0-34.0); Mean Corpuscular Volume 95.6 fL (80.0-100.0); Platelet Count 266 K/uL (130-400); RDW Standard Deviation 48.5 fL (36.4-46.3); Red Blood Count 4.51 M/uL (4.20-5.40); White Blood Count 17.23 K/ul (4.8-10.8)
[2025-05-30 06:32] LABS: Anion Gap 6.0 (3-11); Blood Urea Nitrogen 29.0 mg/dl (6-23); Calcium 9.0 mg/dl (8.6-10.3); Carbon Dioxide 33.0 mmol/L (21-32); Chloride 103.0 mmol/L (98-107); Creatinine Clr Calc Pharmacy 57.0 ml/min; Glucose 84.0 mg/dl (70-99(Fasting)); Potassium 4.5 mmol/L (3.5-5.1); Sodium 142.0 mmol/L (136-145)
[2025-05-30] MEDS ORDERED: ONDANSETRON INJ 2 MG/ML 2 ML VIAL IV PRN (09:25)
[2025-05-30] MEDS ORDERED: PROMETHAZINE HCL 6.25 MG in SODIUM CHLORIDE 0.9% 50 ML IV PRN (09:25)
[2025-05-30] MEDS ORDERED: ATROPINE SULFATE 0.1 MG/ML 10ML SYR IV PRN (09:25)
[2025-05-30] MEDS: SODIUM CHLORIDE 0.9% 1,000 ML IV SCH (09:27)
[2025-05-30] MEDS ORDERED: LIDOCAINE 2% 2 ML VIAL/AMP(20MG/ML) INFIL ONE (09:28)
[2025-05-30] MEDS ORDERED: PROPOFOL IV EMULSION 10 MG/ML 20 ML VIAL IV ONE (09:28)
[2025-05-30] MEDS ORDERED: MIDAZOLAM HCL 1 MG/ML 2ML VIAL ONE (09:28)
[2025-05-30] MEDS ORDERED: DEXAMETHASONE SOD INJ 4 MG/ML VIAL ONE (09:28)
[2025-05-30] MEDS ORDERED: ONDANSETRON INJ 2 MG/ML 2 ML VIAL ONE (09:28)
--- NOTE | 2025-05-30 09:44 | History & Physical Bridge Note ---
Date of Service May 30, 2025 History & Physical Bridge Note Patient for arteriography with possible intervention of the left leg bypass and debridement of the left lower extremity. I have discussed the risks options and benefits of the procedure with the patient. The patient understands the risks options and benefits and agrees to the procedure. I have examined the patient, reviewed the History & Physical and in the interval since the performance of the History & Physical I have noted the following roverto nges of clinical significance: no changes noted
[2025-05-30] MEDS ORDERED: ePHEDrine sulfate 50 MG/5 ML SYR ONE (10:20)
[2025-05-30] MEDS ORDERED: PHENYLEPHRINE 100MCG/ML 5ML SYR ONE (10:55)
[2025-05-30] MEDS ORDERED: HEPARIN SOD (PORCINE) 1000 UNIT/ML ONE ×2 (10:59)
--- NOTE | 2025-05-30 11:55 | Procedure Note ---
Angiogram Post Procedure Fluoroscopy Time (minutes): 17.6 Radiation (mGy): 102 Contrast: 110 Post Operative Report Pre & Post Diagnosis Operation Date: 05/30/25 09:45 Pre-Op Diagnosis: (1) Bypass graft stenosis: (2) Wound infection following procedure: Post-Op Diagnosis: (1) Bypass graft stenosis: (2) Wound infection following procedure: I identified the patient and participated in the time-out.: Yes Procedure Operation Date: 05/30/25 09:45 Actual Procedures p Left Lower Extremity Arteriogram, Coil embolism of side branch x4, CORRESPONDENCE DICTATOR of Femoral popliteal bypass, stent of femoral popliteal bypass, Star mechanical closure(Left) - Russel Arias MD s Debridement Left Leg(Left)(20x5) - Russel Arias MD Surgeon Russel Arias MD Pododermatologist none Estimated Blood Loss 15 Findings Consistent with Post-Op Diagnosis Specimens none Anesthesia Type General Complications none Disposition Accompanied Patient To Recovery: No Disposition: Recovery Room Indications This is a 65-year-old female who has a left femoral to posterior tibial in situ bypass in place. She has a dehisced lower leg wound with necrotic edges and a stenosis of the proximal portion of her bypass. She was also found to have large sidebranches present from the in situ graft. We recommended we stent the bypass graft and tried to coil embolized the large branches as well as debriding the wound. I have discussed the risks options and benefits of the procedure with the patient. The patient understands the risks options and benefits and agrees to the procedure. Description of Procedure The patient was taken the operating placed in a supine position. The groins were prepped draped in sterile manner. Timeout was performed and the patient was identified. Patient ultrasound the right common femoral artery was identified. It was punctured under ultrasound guidance. The artery appeared to be patent with mild plaque. 5 Portuguese sheath was inserted. Using an 035 wire and a rim catheter the left iliac was cannulated the right side. Catheter was advanced down to the distal external iliac artery. Arteriography was then performed. This showed a significant narrowing just beyond the origin of the graft. It appeared to be possibly a leaflet of the valve which was left intact. Following the contrast down there were 4 large branches which resulted in marked decrease of contrast below the last branch. The graft itself was patent down through the distal anastomosis and to the foot. We then inserted an 035 stiff wire. We exchanged the 5 Portuguese sheath for 6 Portuguese destination. We then further advanced the 035 wire down through the distal anastomosis. We then used a 10 x 4 absolute to stent the proximal portion of the graft. The graft was nicely and no residual stenosis was noted. We then inserted a angled glide catheter. This was used to cannulate the first large branch. At that level we deployed a 6 mm coil. We then moved out for the next large branch. This was cannulated again with the angled catheter. We then deployed a 4 mm Portuguese. Next branch which was opposite the system was also cannulated and a 4 mm coil was deployed. We then went further down to just above the knee where a large branch was coming off the in situ bypass. This was cannulated. We then deployed to 6 mm coils within this branch. All branches were then injected prior to deploying the coils to make sure the location was adequate to accept the coil. Completion arteriogram done at that point showed the proximal portion of the bypass to be widely patent. There was no further flow in these 4 branches. The flow within the the distal anastomosis is widely patent and there was good flow down to the foot. in situ graft was markedly improved. At that point the sheath was pulled over to the opposite side. The sheath was then pulled and the puncture site closed with a Star closure device. Adequate hemostasis was noted. Sterile dressings were applied.The patient left the operation room in satisfactory condition and tolerated the procedure well. All needle and sponge counts were correct at the end of the procedure. I attest to the content of the Intraoperative Record and any orders documented therein. Any exceptions are noted below.
--- NOTE | 2025-05-30 11:55 | Post Operative Brief Note ---
Immediate Post Op Note Date of Surgery May 30, 2025 Pre & Post Diagnosis Operation Date: 05/30/25 09:45 Pre-Op Diagnosis: (1) Bypass graft stenosis: (2) Wound infection following procedure: Post-Op Diagnosis: (1) Bypass graft stenosis: (2) Wound infection following procedure: I identified the patient and participated in the time-out.: Yes Procedure Operation Date: 05/30/25 09:45 Actual Procedures p Left Lower Extremity Arteriogram, Coil embolism of side branch x4, IT PROGRAM AUDITOR of Femoral popliteal bypass, stent of femoral popliteal bypass, Star mechanical closure(Left) - Russel Arias MD s Debridement Left Leg (20x5)(Left) - Russel Arias MD Surgeon Russel Arias MD Land Measurer none Estimated Blood Loss 15 Findings Consistent with Post-Op Diagnosis Anesthesia Type General Complications none Disposition Accompanied Patient To Recovery: No Disposition: Recovery Room
[2025-05-30] MEDS: HYDROCORTISONE SOD 100 MG in SYRINGE 0 ML IV ONE (12:14)
[2025-05-30] MEDS: HYDROmorphone INJ 2 MG/ML SYR/VIAL IV PRN (13:30)
--- NOTE | 2025-05-30 13:39 | Anesthesiology Progress Note ---
Date of Service May 30, 2025 Anesthesia Post Procedure Vital Signs Vital Signs: Temp Pulse Pulse Pulse Resp BP BP 05/30/25 13:35 62 12 122/66 05/30/25 13:25 70 18 111/61 05/30/25 13:15 72 17 114/71 05/30/25 13:05 36.4 C L 73 12 114/75 05/30/25 12:55 65 15 115/67 05/30/25 12:45 77 18 101/63 05/30/25 12:35 71 15 115/67 05/30/25 12:25 75 12 102/70 05/30/25 12:15 75 21 101/68 05/30/25 12:05 81 15 105/72 05/30/25 11:58 36.4 C L 81 20 101/63 05/30/25 09:03 36.8 C 70 20 167/70 H 05/30/25 08:10 05/30/25 07:18 36.3 C L 72 18 126/76 05/30/25 07:02 65 05/30/25 04:25 36.8 C 68 16 128/82 05/29/25 23:00 36.4 C L 83 16 120/81 05/29/25 21:48 72 05/29/25 20:19 36.8 C 65 18 127/78 05/29/25 15:42 36.6 C 92 H 20 115/73 Pulse Ox O2 Del Method O2 Flow Rate 05/30/25 13:35 92 Nasal Cannula 3 05/30/25 13:25 95 Nasal Cannula 3 05/30/25 13:15 96 Nasal Cannula 3 05/30/25 13:05 94 Nasal Cannula 3 05/30/25 12:55 95 Nasal Cannula 3 05/30/25 12:45 95 Nasal Cannula 3 05/30/25 12:35 97 Nasal Cannula 3 05/30/25 12:25 98 Nasal Cannula 3 05/30/25 12:15 99 Oxymask 4 05/30/25 12:05 98 Oxymask 6 05/30/25 11:58 98 Oxymask 8 05/30/25 09:03 90 Room Air 05/30/25 08:10 Room Air 05/30/25 07:18 93 Room Air 05/30/25 07:02 05/30/25 04:25 94 Room Air 05/29/25 23:00 93 Room Air 05/29/25 21:48 05/29/25 20:19 97 Room Air 05/29/25 15:42 93 Room Air Pain Intensity Left Leg: Pain Intensity: 6 Transfer of Care Handoff Completed per policy Notes Mental Status: alert / awake / arousable and participated in evaluation Patient Amnestic to Procedure: Yes Nausea / Vomiting: adequately controlled Pain: adequately controlled Airway Patency, RR, SpO2: stable & adequate BP & HR: stable & adequate Hydration State: stable & adequate Anesthetic Complications: no major complications apparent
[2025-05-30] MEDS: ONDANSETRON INJ 2 MG/ML 2 ML VIAL IV PRN (14:09)
--- NOTE | 2025-05-30 23:01 | Hospitalist Progress Note ---
Date of Service May 30, 2025 Assessment & Plan (1) Sepsis: Plan: Present on admission. Currently afebrile. Continue to treat left lower extremity infection with Zosyn (2) Acute cellulitis: Plan: Involving the left lower extremity below the knee, which developed after recent left femoraltibial bypass and late January of this year. Cultures are growing E. coli sensitive to Zosyn. Vancomycin has been discontinued. s/p debridement by Dr. Medrano. completed on 05/30 He will followup tomorrow, likely discharge in 24-48 hours. (3) COPD with acute exacerbation: Plan: She is back to her baseline.. Prednisone tapered down further on May 26 and will be discontinued today, May 28. DuoNebs will be administered on a as need ed basis now. (4) Hypoxia: Plan: Mild on admission. Now resolved. She is on room air (5) Factor V Leiden mutation: Plan: Xarelto remains on hold due to debridement procedure on the left leg. Plan Hopeful discharge to home this coming week after debridement of the left lower extremity completed. Admission and Anticipated Discharge Date Admission Date: May 24, 2025 Subjective 65 yo female reports no new symptoms. She tolerated procedure Physical Exam Physical Exam: General-alert and oriented x3, no fever, no chills HEENT-head atraumatic and normocephalic, pupils equal and reactive to light, extraocular muscles intact Neck-no lymphadenopathy or thyromegaly, trachea midline Chest-clear to auscultation. No rales, wheezing or rhonchi Cardiac-regular rate and rhythm, normal S1 and S2 Abdomen-normal bowel sounds, no hepatosplenomegaly Results & Data Results & Data Vital Signs (Past 12 Hours) Vital Signs Temp Pulse Resp BP BP Pulse Ox O2 Del Method 05/30/25 19:48 105/67 05/30/25 19:31 36.4 C L 79 18 114/61 93 Nasal Cannula 05/30/25 18:00 64 18 109/65 93 Nasal Cannula 05/30/25 17:05 63 18 110/64 92 Nasal Cannula 05/30/25 15:58 36.7 C 58 L 19 122/76 92 Nasal Cannula 05/30/25 15:22 66 16 101/45 L 94 Nasal Cannula 05/30/25 14:54 77 18 113/74 93 Nasal Cannula 05/30/25 14:46 65 16 121/78 92 Nasal Cannula 05/30/25 14:31 36.3 C L 58 L 18 122/76 92 Nasal Cannula 05/30/25 14:12 73 18 124/79 92 Nasal Cannula 05/30/25 13:55 36.4 C L 85 18 116/76 94 Nasal Cannula 05/30/25 13:45 62 13 108/78 95 Nasal Cannula 05/30/25 13:35 62 12 122/66 92 Nasal Cannula 05/30/25 13:25 70 18 111/61 95 Nasal Cannula 05/30/25 13:15 72 17 114/71 96 Nasal Cannula 05/30/25 13:05 36.4 C L 73 12 114/75 94 Nasal Cannula 05/30/25 12:55 65 15 115/67 95 Nasal Cannula 05/30/25 12:45 77 18 101/63 95 Nasal Cannula 05/30/25 12:35 71 15 115/67 97 Nasal Cannula 05/30/25 12:25 75 12 102/70 98 Nasal Cannula 05/30/25 12:15 75 21 101/68 99 Oxymask 05/30/25 12:05 81 15 105/72 98 Oxymask 05/30/25 11:58 36.4 C L 81 20 101/63 98 Oxymask O2 Flow Rate 05/30/25 19:48 05/30/25 19:31 1 05/30/25 18:00 3 05/30/25 17:05 3 05/30/25 15:58 3 05/30/25 15:22 3 05/30/25 14:54 3 05/30/25 14:46 3 05/30/25 14:31 05/30/25 14:12 3 05/30/25 13:55 3 05/30/25 13:45 3 05/30/25 13:35 3 05/30/25 13:25 3 05/30/25 13:15 3 05/30/25 13:05 3 05/30/25 12:55 3 05/30/25 12:45 3 05/30/25 12:35 3 05/30/25 12:25 3 05/30/25 12:15 4 05/30/25 12:05 6 05/30/25 11:58 8 PG Care Time/CCT Total # of Minutes Spent Total Time Spent with Patient: Total time spent is greater than 50% in coordination of care (as documented) at patient's floor/unit and/or counseling patient: Coding Level of Care Code 45233 SUB INP/OBS CARE 2/35MIN Diagnoses Sepsis A41.9; R65.20; J96.01 Acute respiratory failure type: with hypoxia Sepsis acute organ dysfunction status: with acute organ dysfunction Sepsis type: sepsis due to unspecified organism Severe sepsis acute organ dysfunction type: acute respiratory failure Severe sepsis shock status: without septic shock Acute cellulitis L03.90 COPD with acute exacerbation J44.1 Hypoxia R09.02 Factor V Leiden mutation D68.51 (1) Sepsis Acute respiratory failure type: with hypoxia Sepsis acute organ dysfunction status: with acute organ dysfunction Sepsis type: sepsis due to unspecified organism Severe sepsis acute organ dysfunction type: acute respiratory failure Severe sepsis shock status: without septic shock Qualified Code(s): A41.9 - Sepsis, unspecified organism; R65.20 - Severe sepsis without septic shock; J96.01 - Acute respiratory failure with hypoxia
[2025-05-31 06:13] LABS: Hematocrit (blood only) 40.1 % (37.0-47.0); Hemoglobin 12.7 g/dl (12.0-16.0)
[2025-05-31 06:53] LABS: Anion Gap 4 (3-11); Blood Urea Nitrogen 22 mg/dl (6-23); Calcium 8.5 mg/dl (8.6-10.3); Carbon Dioxide 31 mmol/L (21-32); Chloride 102 mmol/L (98-107); Creatinine Clr Calc Pharmacy 67.9 ml/min; Glucose 93 mg/dl (70-99(Fasting)); Sodium 137 mmol/L (136-145)
[2025-05-31] MEDS: VISIPAQUE IV ONE (10:36)
--- NOTE | 2025-05-31 13:07 | Hospitalist Progress Note ---
Date of Service May 31, 2025 Assessment & Plan (1) Sepsis: (2) Acute cellulitis: (3) COPD with acute exacerbation: (4) Hypoxia: (5) Factor V Leiden mutation: Plan Sepsis - Present on admission, etiology COPD exacerbation related pneumonia vs LLE chronic cellulitis - COPD exacerbation symptoms quickly resolved and no pneumonia unlikely based on CXR, making source likely LLE - Wound cx positive for E. coli resistant to cephalosporin therapy - Sputum cx with normal cristopher and blood cx x2 remain negative - Continue Zosyn abx, downgrade to oral abx at d/c. consider Augmentin, cx shows penicillin sensitivity and MRSA nares negative Acute Cellulitis Involving the left lower extremity below the knee, which developed after recent left femoraltibial bypass and late January of this year. Cultures are growing E. coli sensitive to Zosyn. Vancomycin has been discontinued. - s/p debridement by Dr. Arias. completed on 05/30 - No increased pain, purulent discharge or drainage reported - Consider d/c in 24-48 hours after vascular surgery f/u Acute on chronic COPD exacerbation/hypoxia - Quickly resolved closer to admit date 05/24 - dyspnea, fevers, chills and production of thick sputum has resolved - Patient baseline is 2L O2 at rest and patient is back to baseline - Resolved Factor V Leiden - Hold Xarelto due to recent debridement procedure - Continue home Xarelto per vascular surgery recommendations post-procedure, likely will be able to continue in 1-2 weeks Hopeful discharge to home this coming week after debridement of the left lower extremity completed. Admission and Anticipated Discharge Date Admission Date: May 24, 2025 Supervising Physician Co-Signing Physician Notes I personally examined the patient and verified all hernandez points of history and exam, discussed case, and agree with decision making with Dr Gómez feeling better overall, pain improving. notes that she definitely does not want a wound vac again. vitals noted nad heent nc at mmm breathing unlabored no accessory muscles good effort skin no rashes no pallor or icterus neuro no focal deficits. LE wound dressed, blood noted around dressing, but no tracking erythema LE wound/vascular insufficiency - post procedure, vascular input appreciated. continue abx. hopefully home soon Subjective Patient seen resting comfortably this AM. Patient denies acute pain, chest pain/palpitations, SOB, abdominal pain, nausea/vomiting, fevers and chills. Patient does endorse a headache over the last few days but reports that it has been improving. Patient remains afebrile and hemodynamically stable, and reports that she tolerated her debridement therapy with vascular surgery well. Physical Exam Physical Exam: General: patient resting comfortably, NAD, non-toxic in appearance, answers questions appropriately. Skin: warm, dry, intact HEENT: NC/AT, anicteric sclera, conjunctiva without injection, moist mucus membranes. Heart: +S1/S2, regular, no m/r/g Lungs: equal air entry bilaterally, no rales/rhonchi/wheezes Abd: +BS, soft, NT/ND Ext: warm, no clubbing/cyanosis or edema. LLE wrapped after recent debridement, no increased drainage or purulent discharge reported Neuro: nonfocal, speech intact, no facial droop, moving all extremities. Results & Data Results & Data Vital Signs (Past 12 Hours) Vital Signs Temp Pulse Pulse Resp BP BP Pulse Ox 05/31/25 10:50 36.5 C 75 19 99/60 L 91 05/31/25 08:15 05/31/25 07:22 36.4 C L 69 18 119/70 96 05/31/25 07:00 57 L 05/31/25 03:16 36.5 C 66 18 119/71 90 05/31/25 01:05 109/67 O2 Del Method O2 Flow Rate 05/31/25 10:50 Nasal Cannula 2 05/31/25 08:15 Room Air, Nasal Cannula 05/31/25 07:22 Nasal Cannula 2 05/31/25 07:00 05/31/25 03:16 Nasal Cannula 2 05/31/25 01:05 Resident Activity Tracking Resident Involvement: Resident Care Provided Care Provided: Adult Hospital Medicine (1) Sepsis Acute respiratory failure type: with hypoxia Sepsis acute organ dysfunction status: with acute organ dysfunction Sepsis type: sepsis due to unspecified organism Severe sepsis acute organ dysfunction type: acute respiratory failure Severe sepsis shock status: without septic shock Qualified Code(s): A41.9 - Sepsis, unspecified organism; R65.20 - Severe sepsis without septic shock; J96.01 - Acute respiratory failure with hypoxia
[2025-05-31] MEDS: Nursing to Pharmacy Communication SCH (14:04)
--- NOTE | 2025-05-31 14:23 | Surgery Progress Note ---
Date of Service May 31, 2025 Assessment & Plan (1) Peripheral vascular disease: Plan: She has had good results from her balloon angioplasty and coiling of the branches of the bypass graft left leg. She has good palpable pulses in the foot. Currently her bleeding has subsided and her dressing is intact. We leave the dressing on for another 24 hours and changed tomorrow. Admission and Anticipated Discharge Date Admission Date: May 24, 2025 Subjective Patient is awake, has no complaints other than incisional discomfort.. Physical Exam Constitutional: WD/WN, vitals as above Respiratory: normal respiratory effort; no respiratory distress Cardiovascular: RRR, no murmur, no edema Vessels: posterior tibial pulses present (Palpable on the left) and dorsalis pedis pulses present (Palpable on the left) Skin: + incision (Left lower leg dressings int act) Neurologic: CN's II-XI intact bilaterally and moves all extremities Psychiatric: A+Ox3, euthymic affect Results & Data Vital Signs (Past 12 Hours) Vital Signs Temp Pulse Pulse Resp BP BP Pulse Ox 05/31/25 10:50 36.5 C 75 19 99/60 L 91 05/31/25 08:15 05/31/25 07:22 36.4 C L 69 18 119/70 96 05/31/25 07:00 57 L 05/31/25 03:16 36.5 C 66 18 119/71 90 O2 Del Method O2 Flow Rate 05/31/25 10:50 Nasal Cannula 2 05/31/25 08:15 Room Air, Nasal Cannula 05/31/25 07:22 Nasal Cannula 2 05/31/25 07:00 05/31/25 03:16 Nasal Cannula 2
[2025-05-31] MEDS: SUCRALFATE 1 GM TAB PO SCH (16:10)
--- NOTE | 2025-05-31 18:20 | Billing Data ---
Date of Service May 31, 2025 Coding Level of Care Code 51524 SUB INP/OBS CARE
[2025-06-01 06:27] LABS: Hematocrit (blood only) 38.2 % (37.0-47.0); Hemoglobin 12.2 g/dl (12.0-16.0); Immature Granulocytes # (auto) 0.46 K/uL (0.01-0.20); Immature Granulocytes % (auto) 3.1 %; Mean Corpuscular Hemoglobin 30.8 pg (25.0-34.0); Mean Corpuscular Volume 96.5 fL (80.0-100.0); Platelet Count 252 K/uL (130-400); RDW Standard Deviation 49.9 fL (36.4-46.3); Red Blood Count 3.96 M/uL (4.20-5.40); White Blood Count 15.00 K/ul (4.8-10.8)
[2025-06-01 06:51] LABS: Anion Gap 6.0 (3-11); Blood Urea Nitrogen 23.0 mg/dl (6-23); Calcium 8.4 mg/dl (8.6-10.3); Carbon Dioxide 29.0 mmol/L (21-32); Chloride 105.0 mmol/L (98-107); Creatinine Clr Calc Pharmacy 70.3 ml/min; Glucose 89.0 mg/dl (70-99(Fasting)); Potassium 4.1 mmol/L (3.5-5.1); Sodium 140.0 mmol/L (136-145)
--- NOTE | 2025-06-01 14:22 | Surgery Progress Note ---
Date of Service June 01, 2025 Assessment & Plan (1) Open wound: Plan: Wound looking better She can not tolerate a vac Will treat with aquacel ag and sterile wrap She can be d\c with home health and wound clinic follow up Admission and Anticipated Discharge Date Admission Date: May 24, 2025 Subjective Patient complains of mild wound pain Physical Exam Constitutional: WD/WN, vitals as above Cardiovascular: Vessels: posterior tibial pulses present and dorsalis pedis pulses present Extremities: normal capillary refill Skin: + wound (wound starting to show healing. No further bleeding) Psychiatric: A+Ox3, euthymic affect Results & Data Vital Signs (Past 12 Hours) Vital Signs Temp Pulse Pulse Resp BP BP Pulse Ox 06/01/25 11:20 37.0 C 70 18 123/79 95 06/01/25 07:52 06/01/25 07:40 36.4 C L 74 18 116/72 93 06/01/25 07:26 60 06/01/25 02:54 36.8 C 65 16 132/71 92 O2 Del Method O2 Flow Rate 06/01/25 11:20 Nasal Cannula 2.0 06/01/25 07:52 Room Air, Nasal Cannula 06/01/25 07:40 Room Air 06/01/25 07:26 06/01/25 02:54 Room Air
--- NOTE | 2025-06-01 14:26 | Hospitalist Progress Note ---
Date of Service June 01, 2025 Assessment & Plan (1) Sepsis: (2) Acute cellulitis: (3) COPD with acute exacerbation: (4) Hypoxia: (5) Factor V Leiden mutation: Plan Sepsis - Present on admission, etiology COPD exacerbation related pneumonia vs LLE chronic cellulitis - COPD exacerbation symptoms quickly resolved and no pneumonia unlikely based on CXR, making source likely LLE - Wound cx positive for E. coli resistant to cephalosporin therapy - Sputum cx with normal cristopher and blood cx x2 remain negative - Continue Zosyn abx, downgrade to oral abx at d/c. consider Augmentin, cx shows penicillin sensitivity and MRSA nares negative Acute Cellulitis Involving the left lower extremity below the knee, which developed after recent left femoraltibial bypass and late January of this year. Cultures are growing E. coli sensitive to Zosyn. Vancomycin has been discontinued. - s/p debridement by Dr. Arias. completed on 05/30 - No increased pain, purulent discharge or drainage reported - Consider d/c in 24-48 hours after vascular surgery f/u Acute on chronic COPD exacerbation/hypoxia - Quickly resolved closer to admit date 05/24 - dyspnea, fevers, chills and production of thick sputum has resolved - Patient baseline is 2L O2 at rest and patient is back to baseline - Resolved Factor V Leiden - Hold Xarelto due to recent debridement procedure - Continue home Xarelto per vascular surgery recommendations post-procedure, likely will be able to continue in 1-2 weeks Hopeful discharge to home this coming week after debridement of the left lower extremity completed. Admission and Anticipated Discharge Date Admission Date: May 24, 2025 Supervising Physician Co-Signing Physician Notes I personally examined the patient and verified all hernandez points of history and exam, discussed case, and agree with decision making with Dr Gómez feels ok no new issues getting around ok. vitals noted nad heent nc at mmm b reathing unlabored no accessory muscles good effort skin no rashes no pallor or icterus neuro no focal deficits. LE wound/vascular insufficiency - post procedure, vascular input appreciated. continue abx -> transition to PO. anticipate home / wound care /etc tomorrow resume xarelto once OK w vascular Subjective Patient seen this AM resting comfortably eating breakfast. Patient denies chest pain, palpitations, cough, wheeze, abdominal pain, nausea, vomiting, fevers, and chills. Patient does endorse slight SOB on RA but typically uses 2L O2 via NC at rest. Otherwise no acute complaints reported other than mild LLE pain associated with recent procedure. Physical Exam Physical Exam: General: patient resting comfortably, NAD, non-toxic in appearance, answers questions appropriately. Skin: warm, dry, intact HEENT: NC/AT, anicteric sclera, conjunctiva without injection, moist mucus membranes. Heart: +S1/S2, regular, no m/r/g Lungs: equal air entry bilaterally, no rales/rhonchi/wheezes Abd: +BS, soft, NT/ND Ext: warm, no clubbing/cyanosis or edema. LLE wrapped after recent debridement, no increased drainage or purulent discharge reported Neuro: nonfocal, speech intact, no facial droop, moving all extremities. Results & Data Results & Data Vital Signs (Past 12 Hours) Vital Signs Temp Pulse Pulse Resp BP BP Pulse Ox 06/01/25 11:20 37.0 C 70 18 123/79 95 06/01/25 07:52 06/01/25 07:40 36.4 C L 74 18 116/72 93 06/01/25 07:26 60 06/01/25 02:54 36.8 C 65 16 132/71 92 O2 Del Method O2 Flow Rate 06/01/25 11:20 Nasal Cannula 2.0 06/01/25 07:52 Room Air, Nasal Cannula 06/01/25 07:40 Room Air 06/01/25 07:26 06/01/25 02:54 Room Air Resident Activity Tracking Resident Involvement: Resident Care Provided Care Provided: Adult Hospital Medicine (1) Sepsis Acute respiratory failure type: with hypoxia Sepsis acute organ dysfunction status: with acute organ dysfunction Sepsis type: sepsis due to unspecified organism Severe sepsis acute organ dysfunction type: acute respiratory failure Severe sepsis shock status: without septic shock Qualified Code(s): A41.9 - Sepsis, unspecified organism; R65.20 - Severe sepsis without septic shock; J96.01 - Acute respiratory failure with hypoxia
--- NOTE | 2025-06-01 17:10 | Billing Data ---
Date of Service June 01, 2025 Coding Level of Care Code 62408 SUB INP/OBS CARE
--- NOTE | 2025-06-02 06:55 | Discharge Summary ---
Date of Service June 02, 2025 Admission HPI Per Admitting Provider Patient is a 65-year-old female with a past medical history of chronic left lower extremity wound, COPD, factor V Leiden, HTN. Patient uses 2L at bedtime oxygen. She presented due to several days of illness including fever, fatigue, chills, and poor appetite that began on last week. CXR shows possible left midlung pneumonia however early in patient's lower extremity wound with increasing erythema and drainage during wound VAC change on Thursday. Patient is meeting SIRS criteria with white count 12.18, HR 118, respiratory rate 25. She also has a COPD exacerbation. Patient seen at bedside. She stated last week she started not feeling well with fatigue, chills, poor appetite and a fever. Her fever on Thursday was 101.2 F. She has not taken any of her home medications since due to not feeling well. She stated she has a cough however it is chronic and unchanged, this morning she has been coughing up brown sputum which is typically clear. She does have expiratory wheezing on physical exam. She denies any sick contacts. She stated that when she had her wound VAC changed on Thursday (gets changed every Thursday, Thursday, Thursday), there was an increase in redness and drainage from the wound as well as swelling. She denies any increase in pain. She denies any chest pain, shortness of breath, vomiting, diarrhea. She does feel nauseous and with heartburn at bedside. She continues to smoke one half1/2 pack of cigarettes per day since she was about 11 years old. Denies significant alcohol use. Wishes to be full code. Admission Exam Per Admitting Provider PHYSICAL EXAMINATION: GENERAL: NAD, non-toxic. Appears older than stated age. Nasal cannula in place. EYE EXAM: Normal conjunctiva. PERRL, no anisocoria and EOM's grossly intact w/o pain. OROPHARYNX: Dry mucus membranes, grossly normal dentition. NECK: Trachea midline, no stridor. LUNGS: Wheezing noted throughout. Normal chest wall mechanics. HEART: Tachycardic, no MRG. ABDOMEN: Abdomen soft, non-tender, no masses, no rebound or guarding. BACK: No CVA TTP. SKIN: No rashes and no bruising. UPPER EXTREMITIES: Upper extremities are grossly normal. LOWER EXTREMITIES: Wound VAC noted to the medial aspect of the left lower leg mild surrounding erythema but no obvious fluctuance or appreciable drainage. NEURO EXAM: Awake and alert, follows commands, no obvious facial asymmetry, normal speech, moves all 4 extremities. Principal Diagnosis Sepsis, LLE cellulitis Discharge Exam General: patient resting comfortably, NAD, non-toxic in appearance, answers questions appropriately. Skin: warm, dry, intact HEENT: NC/AT, anicteric sclera, conjunctiva without injection, moist mucus membranes. Heart: +S1/S2, regular, no m/r/g Lungs: equal air entry bilaterally, no rales/rhonchi/wheezes Abd: +BS, soft, NT/ND Ext: warm, no clubbing/cyanosis or edema. LLE wrapped after recent debridement, no increased drainage or purulent discharge reported Neuro: nonfocal, speech intact, no facial droop, moving all extremities. Discharge Data Allergies Allergy/AdvReac Type Severity Reaction Status Date / Time latex Allergy Mild Localized Verified 05/09/25 09:19 Redness escitalopram AdvReac Severe Lethargy Verified 05/09/25 09:19 aspirin AdvReac Intermediate Abdominal Verified 05/09/25 09:19 Pain Gsmsisi-MYF-YiA Reductase AdvReac Intermediate Muscle Pain Verified 05/09/25 09:19 Inhibitor Consultations 05/24/25 14:42 ED Decision to Admit Stat 05/24/25 16:45 Consult Vascular Surgery Routine 05/29/25 09:54 Consult Vascular Surgery Routine Procedures Performed Operation Date: 05/30/25 09:45 Actual Procedures p Left Lower Extremity Arteriogram, Coil embolism of side branch x4, 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 bypass, stent of femoral popliteal bypass, Star mechanical closure(Left) - Russel Arias MD s Debridement Left Leg(Left) - Russel Arias MD Ordered Studies 05/26/25 08:02 US arterial duplex LE LT Urgent 05/27/25 12:18 CTA LE LT w and wo if don [CT angio LE LT w inc wo if don] Urgent 05/30/25 09:28 EV angio LE LT Routine US EV guide vascular access Routine Hospital Course (1) Sepsis: (2) Acute cellulitis: (3) COPD with acute exacerbation: (4) Hypoxia: (5) Factor V Leiden mutation: Plan Sepsis - Present on admission, etiology COPD exacerbation related pneumonia vs LLE chronic cellulitis - COPD exacerbation symptoms quickly resolved and no pneumonia unlikely based on CXR, making source likely LLE - Wound cx positive for E. coli resistant to cephalosporin therapy - Sputum cx with normal cristopher and blood cx x2 remain negative - Continue Zosyn abx, downgrade to oral abx at d/c. consider Augmentin, cx shows penicillin sensitivity and MRSA nares negative Acute Cellulitis Involving the left lower extremity below the knee, which developed after recent left femoraltibial bypass and late January of this year. Cultures are growing E. coli sensitive to Zosyn. Vancomycin has been discontinued. - s/p debridement by Dr. Arias. completed on 05/30 - No increased pain, purulent discharge or drainage reported - Consider d/c in 24-48 hours after vascular surgery f/u Acute on chronic COPD exacerbation/hypoxia - Quickly resolved closer to admit date 05/24 - dyspnea, fevers, chills and production of thick sputum has resolved - Patient baseline is 2L O2 at rest as needed for dyspnea - Resolved Factor V Leiden - Hold Xarelto due to recent debridement procedure - Continue home Xarelto per vascular surgery recommendations post-procedure, likely will be able to continue in 1-2 weeks Hopeful discharge to home this coming week after debridement of the left lower extremity completed. Total Time Total Time Spent Total Time Spent (In Minutes): <30 Discharge Plan Discharge Items Patient Disposition: Home - Self-Care Reason For Visit: SEPSIS, CELLULITIS, COPD EXACERBATION Discharge Diagnosis: Sepsis, Cellulitis Condition on Discharge: Fair Activity: Per Instructions section Non-emergency contact: Primary Care Provider Call non-emergency contact if: your symptoms worsen and your pain is not controlled Follow-up/Referrals: Vivian Suarez, [Primary Care Provider] - 06/08/25 2:45 pm Diet: Regular Addtl Attending Provider Instructions: You were admitted 05/24 to the hospital for sepsis, LLE cellulitis and an acute exacerbation of COPD. You were treated with IV antibiotics, fluids and debridement/vascular surgery. Your status quickly improved from a COPD standpoint and your productive cough, dyspnea, and chest tightness resolved while receiving antibiotics and steroid therapy. For your left lower extremity cellulitis, IV antibiotics were used to control your infection, and then you proceeded with debridement and vascular surgery with Dr. Arias. It is important for you to get regular wound care of this area to make sure that your infection continues to be properly controlled without spread or invasion into your blood. In addition to wound care, we will prescribe an antibiotic, Augmentin for the next 7 days. This will complete 14 days of total antibiotic therapy for your LLE cellulitis. The extended duration of this antibiotic is due to the severity of your illness early in your infection and will help prevent spread or growth of this infection. Please take Augmentin twice daily for the next 4 days. An extra pill will be supplied as you started this medication today, so please take one tablet tonight before dinner and then the next 4 days will be twice daily. Please follow-up with vascular surgery if you do not get a call in the next 3-4 days to schedule your regular wound care appointments and vascular surgery follow up. Otherwise, it was our pleasure caring for you during your stay and are pleased with your recovery. We have discussed with vascular surgery and you will be able to shower once discharged. A discharge summary will be sent to your primary care physician to ensure continuity of care. Please bring this discharge summary with you to your next office appointment so that your provider can review it at that time. Follow-up appointments: Make a follow-up appointment with your PCP within the next week. It is very important that you follow up with them shortly after discharge from the hospital. Medications: Your medication list has been reviewed and reconciled upon discharge to ensure accuracy and continuity of care. An updated list of all your medications is included with your hospital discharge paperwork. Please review this list closely, and make note of any changes. We sent a new medication called Augmentin to your pharmacy. Take Augmentin 875 mg one tablet tonight and then twice daily for the next 4 days. You will get a total of 9 pills for one dose tonight, and the remaining 8 pills over the next 4 days. Your final dose will be 06/06/2025 at night. Take your medications as instructed; do not skip a dose of your medicines. Make sure all of your doctors know every medicine you are taking (including [id number]-[id number] medicines, vitamins, and supplements). Call your primary care provider before taking any new medicines (including ikdj-uis-sgbmxry medicines, vitamins, and supplements), because some of these may interact with your current medications, or may make your symptoms worse. Tell your primary care provider if you cannot afford your medications. CONTACT YOUR PRIMARY CARE PROVIDER if you experience any of the following: Difficulty following your treatment plan, or difficulty taking medications CALL 911 OR GO TO THE EMERGENCY DEPARTMENT if you experience any of the following: Sudden, severe abdominal pain or nausea/vomiting Severe chest pain, or chest pain that radiates (moves) to your jaw or arm Sudden, severe shortness of breath or difficulty breathing Thank you for allowing us to participate in your care. Pending Studies at Discharge: No Stand-Alone Forms: My [facility], Smoking Cessation Medications and DC Order Prescriptions: New amoxicillin-pot clavulanate 875-125 mg tablet 1 tab PO BID Qty: 9 0RF Rx Instructions: Please take one tablet tonight. Then twice daily for the next 4 days. Continued (DME) Oxygen Home Liters Per Minute See Rx Instructions .MEDSUPPLY Qty: 1 0RF Rx Instructions: Oxygen 1 L/min with activity and nightly, needs portable oxygen concentrator, DME AHP (DME) Oxygen Home Liters Per Minute See Rx Instructions .Route Qty: 1 0RF Rx Instructions: 2 liters Nasal cannula via concerntrator for exertion and sleep fluticasone propion-salmeterol [Advair Diskus] 500-50 mcg/dose blister with device 1 inh inhalation BID Qty: 60 3RF (DME) Portable Oxygen Misc See Rx Instructions .Route Qty: 1 0RF Rx Instructions: 2L NC via tank for exertion and sleep ibuprofen 200 mg Tablet 200 mg PO Q6H PRN (Reason: Pain) tiotropium bromide [Spiriva with HandiHaler] 18 mcg capsule, w/inhalation device 1 cap INHALATION QAM amlodipine [Norvasc] 5 mg tablet 5 mg PO HS loratadine [Claritin] 10 mg tablet 10 mg PO QAM PRN (Reason: Allergy Symptoms) oxycodone-acetaminophen [Percocet] 5-325 mg tablet 1 - 2 tab PO Q4H PRN (Reason: Pain) albuterol sulfate 90 mcg/actuation HFA aerosol inhaler 1 inh inhalation Q6H PRN (Reason: Shortness Of Breath Or Wheezing) rivaroxaban [Xarelto] 2.5 mg Tablet 2.5 mg PO BID Rx Instructions: patient has not started yet, Discharge Orders: Discharge Order (Routine); Ordered 06/02/25 Ordered By: Álvaro Sanders/Other Patient Handouts: Amoxicillin/Clavulanate Oral Tablet Admission Data Admit Date/Time: 05/24/25 14:55 Attending Provider: Serge Angel Admit Provider: Ruben Holt Primary Care Provider: Vivian Suarez Other Providers: [facility],Home Healthcare; [facility],Referral Center; Ruben Holt; Elfego Sun; Russel Arias Other Interventions: Discharge Summary Assessment (RN) Last Done: 06/02/25 10:59 Supervising Physician Co-Signing Physician Notes I personally examined the patient and verified all hernandez points of history and exam, discussed case, and agree with decision making with Dr Gómez no problems, no complaints, ready to go home. vitals noted nad heent nc at mmm breathing unlabored no accessory muscles good effort skin no rashes no pallor or icterus neuro no focal deficits. LE wound/vascular insufficiency - post procedure, vascular input appreciated. PO abx. outpt wound care. outpt PCP and vascular f/u. safe/stable for home. otherwise as above Resident Activity Tracking Resident Involvement: Resident Care Provided Care Provided: Adult Hospital Medicine
[2025-06-02 07:12] VITALS: BP 129/78; RESP 18; TEMP 97.7; O2SAT 94
[2025-06-02] MEDS: AMOXICILLIN/CLAVULANATE 875 MG TAB PO SCH (08:28)
--- NOTE | 2025-06-02 09:20 | Billing Data ---
Date of Service June 02, 2025 Coding Level of Care Code 54442 IN/OBS DISCH 30 MIN/LESS
[2025-06-02 11:04] VITALS: PULSE 73
--- NOTE | 2025-06-02 16:04 | Billing Data ---
Date of Service June 02, 2025 Coding Level of Care Code 66052 IN/OBS DISCH 30 MIN/LESS
--- NOTE | 2025-06-16 06:12 | Coding Query ---
DEBRIDEMENT DOCUMENTATION To promote full compliance with coding requirements relating to patient care, physician participation is requested in all cases of welding machine operator submerged arc uncertainty. Please assist us with the question(s) below: Please place an X in the parenthesis (x). If other, please document the finding: Type of Debridement: (x ) Excisional Debridement- Cutting away necrotic, devitalized tissue or slough to the level of viable tissue using a sharp instrument (i.e. scalpel, scissors, etc.) ( ) Non Excisional Debridement- The removal of necrotic, devitalized tissue or slough by means of scraping, mechanical brushing, flushing, or washing (i.e. irrigation,whirlpool);minor removal of loose fragments. ( ) Other (please specify): Instrument Used: ( x) Scissors (x ) Scalpel ( ) Curette ( ) Other (please specify): Depth of Debridement: ( ) Skin (x ) Skin and Subcutaneous Tissue ( ) Skin, Subcutaneous Tissue and Muscle ( ) Skin, Subcutaneous Tissue, Muscle and Bone ( ) Other (please specify): Please Specify the Size of Debridement in cm2: 20X5 Thank you TOMAS Schuler [facility]
== END 2025-06-02 12:10 | disposition home or self-care (01) | DRG 270 ==
LOC: SUATTDRO → ED 12:00 → 4W 14:55 → SUATTDRO 14:55 → 4W 16:48